=== PATIENT | female | born 1955 | race Caucasian/White ===

== ENCOUNTER 2023-10-05 13:22 | Emergency (ER) | payer MEDICARE, MEDICAID, SELFPAY ==
[2023-10-05 13:40] VITALS: BP 134/68; PULSE 92; RESP 16; TEMP 36.1; O2SAT 96
--- NOTE | 2023-10-05 13:40 | ED.EAR ---
HPI - Ear Problem General Chief complaint: Ear Stated complaint: Ears Time Seen by Provider: 10/05/23 13:40 Source: patient, RN notes reviewed and old records reviewed Mode of arrival: ambulatory Limitations: no limitations History of Present Illness HPI Narrative: 68-year-old female to [facility] for complaint of bilateral ear discomfort for Approximately 8 weeks. Patient reports attempting to use Debrox and warm water in her ears with little relief. Patient describes discomfort in right ear as popping and states that left ear drains while she sleeps. Patient denies dizziness, headache, sore throat, cough, chest pain, shortness of breath, difficulty swallowing, allergies, pertinent medical history. Patient able to tolerate fluids by mouth. Respirations even and nonlabored. Patient in no acute distress. Related Data Home Medications Medication Instructions Recorded Confirmed acetaminophen 300 mg-codeine 30 mg 1 tablet PO BID 10/05/23 10/05/23 tablet atorvastatin 40 mg tablet 40 mg PO DAILY 10/05/23 10/05/23 buspirone 5 mg tablet 5 mg PO DAILY 10/05/23 10/05/23 cetirizine 10 mg tablet 10 mg PO DAILY 10/05/23 10/05/23 clopidogrel 75 mg tablet 75 mg PO DAILY 10/05/23 10/05/23 empagliflozin 10 mg tablet 10 mg PO DAILY 10/05/23 10/05/23 (Jardiance) furosemide 80 mg tablet 80 mg PO DAILY 10/05/23 10/05/23 nystatin 100,000 unit/gram topical 1 applic topical BID 10/05/23 10/05/23 powder nystatin-triamcinolone 100,000 1 applic topical BID 10/05/23 10/05/23 unit/g-0.1 % topical cream omeprazole 20 mg capsule,delayed 20 mg PO DAILY 10/05/23 10/05/23 release potassium chloride 20 mEq 40 meq PO BID 10/05/23 10/05/23 tablet,extended release(part/cryst) sacubitril 49 mg-valsartan 51 mg 1 tablet PO BID 10/05/23 10/05/23 tablet (Entresto) Allergies Allergy/AdvReac Type Severity Reaction Status Date / Time No Known Allergies Allergy Verified 10/05/23 13:27 Review of Systems Review of Systems: All systems reviewed & are unremarkable except as noted in HPI and below Constitutional: Constitutional: Reports no additional constitutional complaints Eyes: Eyes: Reports no additional eye complaints ENT: Reports as per HPI and Reports otalgia ( Bilateral) Cardiovascular: Cardiovascular: Reports no additional cardiovascular complaints, Denies chest pain and Denies dyspnea Respiratory: Respiratory: Reports no additional respiratory complaints, Denies cough and Denies dyspnea Musculoskeletal: Musculoskeletal: Reports no additional musculoskeletal complaints Neurologic: Reports system reviewed and no additional complaints, except as documented Psychiatric: Psychiatric: Reports no additional psychiatric complaints PMFSH Comments At the time of my signature, I reviewed and agree with the nursing past medical, surgical, social, and family history. There is no relevant family history pertinent to the patient complaint. Exam Const: General: cooperative, healthy appearing, comfortable, no acute distress, alert and well nourished Nutritional Appearance: well nourished Orientation/consciousness: patient oriented x3 Limitations: no limitations HENMT: Head: normal to inspection Ears: external ears normal, Abnormal EAC present cerumen impaction on the right, excessive cerumen on the left and foreign body on the right ( thick, purulent drainage); no otic discharge and unable to visualize TM on the right Face/Nose/Sinus: Normal external nose present, Normal nares present, normal facial exam, No erythema and No edema Face and sinus: normal facial exam, no erythema and no edema Mouth: Yes Normal oral and palatal mucosa present Eyes: General: appearance normal, both eyes and all related structures Neck: Neck: normal visual inspection, full ROM and no meningeal signs Lymphatic: no lymphadenopathy noted and no lymphedema noted Chest: Chest palpation & inspection: normal inspection of the chest Resp: Effort & Inspectio
[2023-10-05 13:53] VITALS: BP 134/68; PULSE 92; RESP 16; TEMP 36.1; O2SAT 96
== END 2023-10-05 14:37 | disposition home or self-care (01) ==
PROVIDERS: Emergency Provider Nurse Practitioner Family; PCP Family Medicine
DX: H60.91 Unspecified otitis externa, right ear (principal); H61.23 Impacted cerumen, bilateral; T16.1XXA Foreign body in right ear, initial encounter; W44.8XXA Other foreign body entering into or through a natural orifice, initial encounter; I11.0 Hypertensive heart disease with heart failure; I50.9 Heart failure, unspecified; J44.9 Chronic obstructive pulmonary disease, unspecified
CPT/HCPCS: 69210; 69200; 99203; G0463

== ENCOUNTER 2024-04-15 14:40 | Emergency (ER) | payer MEDICARE, MEDICAID, SELFPAY ==
--- NOTE | 2024-04-15 14:56 | ED_ITS ---
HPI - Ear Problem General Chief complaint: Ear Stated complaint: POSS EAR INFECTION BOTH EARS Time Seen by Provider: 04/15/24 15:26 Source: patient and RN notes reviewed Mode of arrival: ambulatory Limitations: no limitations History of Present Illness HPI Narrative: 68-year-old female presents with concern for cracking of the right ear, fullness in both ears. Reports it feels like her ears are draining at night. She denies fever or cold symptoms. MD Complaint: ear pain Related Data Home Medications ?Medication ?Instructions ?Recorded ?Confirmed ?Last Taken ?Type acetaminophen 300 mg-codeine 30 mg 1 tablet PO BID 10/05/23 10/05/23 Unknown History tablet atorvastatin 40 mg tablet 40 mg PO DAILY 10/05/23 10/05/23 Unknown History buspirone 5 mg tablet 5 mg PO DAILY 10/05/23 10/05/23 Unknown History cetirizine 10 mg tablet 10 mg PO DAILY 10/05/23 10/05/23 Unknown History clopidogrel 75 mg tablet 75 mg PO DAILY 10/05/23 10/05/23 Unknown History empagliflozin 10 mg tablet 10 mg PO DAILY 10/05/23 10/05/23 Unknown History (Jardiance) furosemide 80 mg tablet 80 mg PO DAILY 10/05/23 10/05/23 Unknown History nystatin 100,000 unit/gram topical 1 applic topical BID 10/05/23 10/05/23 Unknown History powder nystatin-triamcinolone 100,000 1 applic topical BID 10/05/23 10/05/23 Unknown History unit/g-0.1 % topical cream omeprazole 20 mg capsule,delayed 20 mg PO DAILY 10/05/23 10/05/23 Unknown History release sacubitril 49 mg-valsartan 51 mg 1 tablet PO BID 10/05/23 10/05/23 Unknown History tablet (Entresto) albuterol sulfate 90 mcg/actuation inhalation 04/15/24 Unknown History aerosol inhaler (Ventolin HFA) fluoxetine 20 mg capsule mg 04/15/24 Unknown History gabapentin 100 mg capsule mg 04/15/24 Unknown History oxybutynin chloride 5 mg tablet mg 04/15/24 Unknown History sertraline 25 mg tablet mg 04/15/24 Unknown History trazodone 50 mg tablet mg 04/15/24 Unknown History Allergies Allergy/AdvReac Type Severity Reaction Status Date / Time No Known Allergies Allergy Verified 04/15/24 15:12 Review of Systems Review of Systems: CONSTITUTIONAL: Denies malaise, chills, sweats, or fever. EYES: Denies visual changes, redness, or discharge. ENT: Denies rhinorrhea, congestion, sinus pain, and sore throat. Reports bilateral ear fullness, popping of the right ear for 2 week CARDIOVASCULAR: Denies chest pain, palpitations, or edema. RESPIRATORY: Denies cough. Denies dyspnea. GASTROINTESTINAL: Denies abdominal pain, nausea, vomiting, diarrhea SKIN: Denies rash or itching. MUSCULOSKELETAL: Denies myalgia. NEUROLOGIC: Denies headache. All systems reviewed & are unremarkable except as noted in HPI and below PMFSH Comments At time of signature, agree with nursing past medical, surgical, social and family history. There is no relevant family history pertinent to the presenting complaint Exam Narrative: GENERAL: Well-appearing, well-nourished, and in no acute distress. HEAD: Normocephalic EYES: PERRLA, conjunctivae clear ENT: Nares clear, turbinates edematous, clear discharge. Mucous membranes moist. TM pearly patel with dull light reflex bilaterally; no tragal tenderness. Oropharynx not erythematous without lesions. Tonsils not enlarged and without exudate, no drooling, no hoarseness, no trismus, uvula midline. NECK: Supple. No lymphadenopathy CHEST: Clear to auscultation, breath sounds equal. No wheezing, rhonchi, rales, or stridor. No respiratory distress, speaks in full sentences. HEART: Regular rate and rhythm. No murmur heard. SKIN: Warm, dry, no rash. NEURO: Alert and oriented x3. PSYCH: Normal mood and affect Course Course Emergency Course: Patient is aware of diagnosis, understands and agrees to treatment plan. Anticipatory guidance given. Patient agrees to follow-up as directed and is aware of reasons to seek care at the emergency department. Portions of this record may have been created with voice recognition software Level of Care: [facility] Visit Vital Signs Vital signs: Reviewed. Medical Decision Making MDM Narrative Medical decision making narrative: I evaluated this in the [facility]. History is obtained from patient who is an independent historian and physical exam was performed.? Available medical records were reviewed. ? Exam findings and relevant testing show no acute concerns or changes; patient is non-toxic appearing and is in no distress. Differential diagnosis considered: Betancur virus, strep pharyngitis, allergic rhinitis, upper respiratory tract infection, sinusitis, rhinosinusitis, nasopharyngitis. viral pharyngitis, otitis media, otitis externa, otitis effusion, cerumen impaction, foreign body. Exam findings show no acute concerns or changes; patient is non-toxic appearing and is in no distress. Patient is appropriate for outpatient treatment and follow-up. ? Differential diagnosis and treatment plan were discussed with the patient. Patient agrees with discussion and after shared medical decision making agrees with plan of care. All questions were answered to the patient's satisfaction. Patient is appropriate for outpatient treatment and follow-up. Critical Care Time Critical Care Time Critical Care Time: No Discharge Plan Discharge Clinical Impression: Fluid collection of middle ear Patient Disposition: Home, Self-Care Condition: Stable Instructions: Fluid In The Ear (Serous Otitis Media) (ED) Additional Instructions: Recommend antihistamine such as Benadryl at night time and Zyrtec or Maia during the day until symptoms improve Afrin nasal spray for no more than 2 days in a row Flonase nasal spray, 2 sprays in each nostril once daily until symptoms improve Also, recommend symptomatic treatment includes: rest, fluids, and increase humidity of the air at home. Recommend Acetaminophen as directed on the bottle to reduce fever, pain Please schedule a follow-up visit with your personal physician for further evaluation and treatment within 3-5days. If your symptoms persist, change or worsen significantly before you can contact your personal physician then please, without delay, go to the emergency department for further evaluation. Patient Language: [place] Prescriptions: New fluticasone propionate [Flonase Allergy Relief] 50 mcg/actuation spray,suspension 2 spray NASAL DAILY 14 Days Qty: 15.8 0RF Rx Instructions: administer into each nostril oxymetazoline [Afrin (oxymetazoline)] 0.05 % spray,non-aerosol 2 spray intranasal Q12H PRN (Reason: nasal congestion) 2 Days Qty: 15 0RF No Action buspirone 5 mg tablet 5 mg PO DAILY furosemide 80 mg tablet 80 mg PO DAILY Jardiance 10 mg tablet 10 mg PO DAILY Entresto 49-51 mg tablet 1 tablet PO BID acetaminophen-codeine 300-30 mg tablet 1 tablet PO BID nystatin-triamcinolone 100,000-0.1 unit/g-% cream 1 applic TOPICAL BID nystatin 100,000 unit/gram powder 1 applic TOPICAL BID atorvastatin 40 mg tablet 40 mg PO DAILY cetirizine 10 mg tablet 10 mg PO DAILY omeprazole 20 mg capsule,delayed release(DR/EC) 20 mg PO DAILY clopidogrel 75 mg tablet 75 mg PO DAILY trazodone 50 mg tablet sertraline 25 mg tablet gabapentin 100 mg capsule albuterol sulfate [Ventolin HFA] 90 mcg/actuation HFA aerosol inhaler INHALATION oxybutynin chloride 5 mg tablet fluoxetine 20 mg capsule Follow-up/Referrals: Abran,Lev Art MD [Primary Care Provider] - Time of Disposition: 15:37
[2024-04-15 15:05] VITALS: BP 109/57; PULSE 81; RESP 20; TEMP 37.2; O2SAT 96
--- OUTSIDE RECORDS SUMMARY | 2024-04-15 17:19 | XMS_ITS | Clinical Summary ---
Author Organization [facility] Address [address] [address] Phone Care Team Providers Care Coremaker Pipe Name Role Phone Lev Osullivan MD Primary Care Provider [phone] Allergies Active Allergy Reactions Criticality Noted Date Comments Semaglutide Diarrhea 12/19/2022 Medications traZODone (DESYREL) 50 MG Tablet Take 1 Tablet by mouth nightly. Active aspirin EC 81 MG Tablet Delayed Response Take 1 Tablet by mouth daily. Active atorvastatin (LIPITOR) 40 MG Tablet Take 1 Tablet by mouth daily. Active albuterol (PROVENTIL/TIFFANY ABRAHAM) 1.25 MG/3ML Nebulizer Soln take 2 Puffs by inhalation every 4 hours as needed for Shortness of Breath or Wheezing. Active oxybutynin (DITROPAN) 5 MG Tablet Take 1 Tablet by mouth every evening. 1 Active sacubitril-valsa rtan (ENTRESTO) 49-51 MG Tablet Take 1 Tablet by mouth 2 times daily. Active acetaminophen-co deine (TYLENOL #3) 300-30 MG Tablet Take 1 Tablet by mouth 2 times daily as needed for Moderate or more severe pain or Severe pain. Active Empagliflozin (Jardiance) 10 MG Tablet Take 1 Tablet by mouth daily. Active benzonatate (TESSALON) 100 MG Capsule Take 1 Capsule by mouth 3 times daily as needed for Cough. Active Omeprazole 20 MG Tablet Delayed Release Dispersible Take 1 Capsule by mouth daily. Active cetirizine (ZyrTEC) 10 MG Tablet Take 1 Tablet by mouth daily. Active FLUoxetine (PROzac) 20 MG Capsule Take 1 Capsule by mouth daily. Active gabapentin (NEURONTIN) 100 MG Capsule Take 1 Capsule by mouth 2 times daily. Active Potassium Chloride ER (KLORCON) 20 MEQ Tablet Controlled Release Take 2 Tablets by mouth 2 times daily. Take 2 tablets by mouth twice daily with furosemide Active busPIRone (BUSPAR) 5 MG Tablet Take 1 Tablet by mouth 2 times daily. Active furosemide (LASIX) 80 MG Tablet Take 1 Tablet by mouth daily. Active Ergocalciferol (VITAMIN D2 PO) Take 1 Capsule by mouth once a week. Take 1 capsule (1.25 mg) weekly. Active fluticasone-salm eterol (ADVAIR) 250-50 MCG/ACT AEROSOL POWDER, BREATH ACTIVATED take 1 Puff by inhalation 2 times daily. Active miconazole (Miconazole Antifungal) 2 % Cream Apply 2 times daily. Application Site: affected area (Description and Location) 56 g 3 Active Menthol-Zinc Oxide (Moisture Barrier) 0.44-20.6 % Ointment Application Site: affected areas twice daily (Description and Location) 113 g 3 Active Active Problems Problem Noted Date Diagnosed Date Hyperlipidemia 03/30/2023 Exertional dyspnea 03/30/2023 Depression 03/30/2023 Arthritis 03/30/2023 Pulmonary HTN 09/30/2019 Contracture of joint of right foot 04/26/2017 Pain of right foot 04/26/2017 Morbid obesity due to excess calories 08/18/2015 Cellulitis 02/02/2015 COPD (chronic obstructive pulmonary disease) Hypertension 02/02/2015 ETOH abuse 02/02/2015 Tobacco abuse disorder 02/02/2015 Sleep apnea 02/02/2015 Other peripheral vascular disease(443.89) 2014 Skin ulcer of toe of right foot with fat layer e xposed 02/02/2015 Resolved Problems Problem Noted Date Diagnosed Date Resolved Date CHF exacerbation 03/30/2023 04/01/2023 Cellulitis and abscess of toe 02/16/2015 04/01/2023 Encounters Date Type Department Care Team Description 03/04/2024 Transcribe Orders [facility] Cardiac It Technical Specialist [address] [place] [id number] Lev Osullivan MD Oth abn and inconclusive findings on dx imaging of breast (Primary Dx) from Last 3 Months Immunizations Immunization Administration Dates Next Due Covid-19 Vaccine, Vector-nr, Rs-ad26, Pf, 0.5 Ml (NACHO/J&J) 05/27/2020 Influenza Vaccine greater than 3 yrs 11/20/2015 Influenza Vaccine, Quadrivalent, PF 02/02/2015 Family History Medical History Relation Name Comments Chronic Obstructive Pulmonary Disease Father Hypertension Father Stroke Father Cancer Mother brain and then spine Hypertension Mother Relation Name Status Comments Father Mother Social History Tobacco Use Types Packs/Day Years Used Date Smoking Tobacco: Former Cigarettes 0.5 25 0 09/04/1994 - 09/05/2019 Smokeless Tobacco: Never Tobacco Cessation:Counseling Given: No Alcohol Use Standard Drinks/Week Comments Never 0 (1 standard drink = 0.6 oz pur e alcohol) a fifth every other day [facility] Utilities Answer Date Recorded In the past 12 months has [employer], gas, oil, or water [employer] threatened to shut off services in your home? No 03/30/2023 Social Connection and Isolation Panel [NHANES] A nswer Date Recorded In a typical week, how many times do you talk on the phone with family, friends, or neighbors? Three times a week 03/30/19 24 How often do you get togethe r with friends or relatives? Three times a week 03/30/2023 How often do you attend [facility] or synagogue services? 1 to 4 times per year 03/30/2023 Do you belong to any clubs o r organizations such as confucianism groups, unions, fraternal or athletic groups, or school groups? No 03/30/2023 How often do you attend meet ings of the clubs or organizations you belong to? 1 to 4 times per year 03/30/2023 Are you , , di vorced, , never , or living with a partner? Living with partner 03/30/2023 AUDIT-C Answer Date Recorded Q1: How often do you have a drink containing alcohol? Never 03/30/2023 Q2: How many drinks containi ng alcohol do you have on a typical day when you are drinking? Patient does not drink Q3: How often do you have si x or more drinks on one occasion? Never 03/30/2023 Overall Financial Resource Strain (CARDIA) Answe r Date Recorded How hard is it for you to pa y for the very basics like food, housing, medical care, and heating? Not very hard 03/30/2023 [facility] - Occupational Stress Questionnaire Answer Date Recorded Do you feel stress - tense, restless, nervous, or anxious, or unable to sleep at night because your mind is troubled all the time - these days? Not at all 03/30/2023 Exercise Vital Sign Answer Date Recorde d On average, how many days pe r week do you engage in moderate to strenuous exercise (like a brisk walk)? 0 days 03/30/2023 On average, how many minutes do you engage in exercise at this level? 0 min 03/30/2023 Hunger Vital Sign Answer Date Recorded Within the past 12 months, y ou worried that your food would run out before you got the money to buy more. Never true 03/30/19 24 Within the past 12 months, t he food you bought just didn't last and you didn't have money to get more. Never true 03/30/2023 PRAPARE - Transportation Answer Date Re corded In the past 12 months, has l ack of transportation kept you from medical appointments or from getting medications? No 09/2023 In the past 12 months, has l ack of transportation kept you from meetings, work, or from getting things needed for daily living? No 03/30/2023 Housing Stability Vital Sign Answer Aj e Recorded In the last 12 months, was t here a time when you were not able to pay the mortgage or rent on time? No 03/30/2023 In the last 12 months, how many places have you lived? 1 03/30/2023 In the last 12 months, was t here a time when you did not have a steady place to sleep or slept in a fdc (including now)? No 03/30/2023 Sexually Active Control Partners Comments Never rarely- using n o protections Comments No Sex and Gender Information Value Date Recorded Sex Assigned at Not on file Legal Sex Female 8:37 PM CDT Gender Identity Not on file Sexual Orientation Not on file Last Filed Vital Signs Vital Sign Reading Time Taken Comments Blood Pressure 94/48 04/01/2023 7:31 AM BOTTOM BLEACHER Pulse 82 04/01/2023 7:31 AM BOTTOM BLEACHER Temperature 36.5 C (97.7 F) 04/01/2023 7:31 AM BOTTOM BLEACHER Respiratory Rate 18 04/01/2023 7:33 AM BOTTOM BLEACHER Oxygen Saturation 94% 04/01/2023 7:33 AM BOTTOM BLEACHER Inhaled Oxygen Concentration - - Weight 163.3 kg (360 lb) 04/27/2023 3:22 PM BOTTOM BLEACHER Height 157.5 cm (5' 2 ) 04/27/2023 3:22 PM BOTTOM BLEACHER Body Mass Index 65.84 04/27/2023 3:22 PM BOTTOM BLEACHER Plan of Treatment Upcoming Encounters Date Type Department Care Team (Late st Contact Info) Description 04/16/2024 1:15 PM BOTTOM BLEACHER [facility] 1 [facility] [place] [address] Lev Osullivan MD [address] [facility] [place] [address] 04/16/2024 1:45 PM BOTTOM BLEACHER [facility]ment [facility] 1 [facility] [place] [address] Lev Osullivan MD [address] [place] [address] [place] [address] Health Maintenance Due Date Last Done Comments DEXA Bone Density 1955 Hepatitis C Virus (HCV) Screening 1955 TdaP Immunization 1955 Colonoscopy 1998 Colorectal Cancer Screening 1998 Cologuard 08/24/2003 Immunochemical Fecal Occult Blood 08/24/2003 Respiratory Syncytial Virus (RSV) Immunization (Adult) (1 - Risk 60-74 years 1-dose series) 2013 SARS-COV-2 Immunization ( season) 2023 05/27/2020 Mammogram 10/09/2024 10/10/2023, 06/0 02/2020, 07/21/2020, Additional history exists Pneumococcal Immunization (50+ years) Completed 01/04/2021, 11/28/2018, 11/28/2018, Additional history exists Pneumococcal Immunization Combined Discontinued 01/04/2021, 11/28/2018, 11/28/2018, Additional history exists Zoster Immunization Completed 12/14/2021, 2 Influenza Immunization Completed , 02/21/2023, 01/04/2021, Additional history exists Hepatitis B Immunization Aged Out No longer eligible based on patient's age to complete this topic Meningococcal Immunization (ACWY) Aged Out No longer eligible based on patient's age to complete this topic Rotavirus Immunization Aged Out No lo nger eligible based on patient's age to complete this topic Medical Devices Implanted Type Area Picker / Packer Device Identifier Shelf Expiration Date Model / Serial / Lot Pkg Assy [id number] Smart Davi 80cm - [id number] Implanted:Qty: 1 on 04/17/2015 by Ron Moore MD at [facility] IMPLANT Right: Iliac JNJ / CORD 11/19/2016 [id number] / / [id number] Stent Biliary Transhepatic Self-Expandin - [id number] Implanted:Qty: 1 on 04/17/2015 by Ron Moore MD at [facility] IMPLANT Left: Iliac JNJ / CORD 07/20/2016 [id number] / / [id number] Angioseal Vip 6fr - [id number] Implanted:Qty: 1 on 04/17/2015 by Ron Moore MD at [facility] IMPLANT Right: Groin ST ANITA / ATRIAL FIB 09/20/2015 [id number] / / [id number] Angioseal Vip 6fr - [id number] Implanted:Qty: 1 on 04/17/2015 [facility] IMPLANT Left: Groin ST ANITA / ATRIAL FIB 09/20/2015 [id number] / / [id number] Angioseal Vip 6fr - [id number] Implanted:Qty: 1 on 06/03/2015 by Ron Moore MD at [facility] IMPLANT Left: Groin ST ANITA / ATRIAL FIB 09/20/2015 [id number] / / [id number] Smart Control Implanted:Qty: 1 on 06/03/2015 by Ron Moore MD at [facility] Right: Leg CORDIS 11/19/2016 [id number] / NA / [id number] Procedures Procedure Name Priority Date/Time Associated Diagnosis Comments ALETHA DIAG BILATERAL DIGITAL W CAD Routine 10/10/2023 11:30 AM CDT Abnormal mammogram from Last 3 Months or Most Recently Relevant to Health Maintenance Results * ALETHA DIAG BILATERAL DIGITAL W CAD (10/10/2023 11:30 AM CDT) Anatomical Region Laterality Modality breast Bilateral Mammography 10/10/2023 9:50 AM CDT Narrative 10/10/2023 3:38 PM CDT - ALETHA DIAG BILATERAL DIGITAL W CAD - ALETHA US BREAST LIMITED DAVI BILATERAL DIGITAL DIAGNOSTIC MAMMOGRAM WITH CAD WITH MEDIOLATERAL OBLIQUE CRANIOCAUDAL AND BILATERAL ULTRASOUND: 10/10/2023 The study was acquired using digital technology and interpreted from soft copy. Current study was also evaluated with ICAD version 7.2. CLINICAL: Diagnostic study. Left purple breast sore on lateral breast for 6 months. Technologist notes far lateral right breast discoloration with a dimple in the center; not able to be visualized on mammogram due to patient ability and wheelchair. 2D exam due to COPD; difficulty suspending respirations. Exam performed in a motorized wheelchair. She has reduced range of motion. Unable to obtain ACR quality images due to patient condition. No personal history of cancer. No family history of breast cancer. COMPARISONS: Comparison is made to exams dated: 07/21/2020, 09/17/2018, and 03/17/2014 [facility]. BREAST TISSUE:There are scattered fibroglandular densities in both breasts. FINDINGS: BILATERAL DIAGNOSTIC MAMMOGRAM: The examination is limited secondary to the patient's limited ability to cooperate for positioning. All images are suboptimal. There is a cluster of microcalcifications at the 9 o'clock position of the right breast, middle depth. These were evaluated with magnification views and demonstrate a probably benign appearance. No other significant masses or calcifications are seen in either breast on the mammogram. Further evaluation was obtained with sonography. TARGETED RIGHT BREAST ULTRASOUND: No lesions are seen underlying the areas of concern at the area of discoloration at the 9 o'clock position of the right breast or at the skin sore at the 4 o'clock position of the left breast, 6 cm from the nipple. IMPRESSION: OVERALL STUDY BIRADS: 3 PROBABLY BENIGN There are probably benign calcifications at the 9 o'clock position of the right breast, middle depth. A follow-up mammogram in 6 months is recommended to demonstrate stability. No lesions are seen underlying the areas of concern in either breast. Clinical management is recommended. The results and recommendations were discussed with the patient. Electronically signed by: Kalee Pineda M.D. ll/:10/10/2023 12:28:35 [employer]otive [employer] Specialist(s): RT Marisela(R)(M), [facility]; Cassie Padilla, [facility] letter sent: Birad 3 Followup Reading location: [facility] OVERALL STUDY BIRADS: 3 Probably benign Procedure Note Kalee Pineda MD - 10/10/2023 - ALETHA DIAG BILATERAL DIGITAL W CAD - ALETHA US BREAST LIMITED DAVI BILATERAL DIGITAL DIAGNOSTIC MAMMOGRAM WITH CAD WITH MEDIOLATERAL OBLIQUE CRANIOCAUDAL AND BILATERAL ULTRASOUND: 10/10/2023 The study was acquired using digital technology and interpreted from soft copy. Current study was also evaluated with ICAD version 7.2. CLINICAL: Diagnostic study. Left purple breast sore on lateral breast for 6 months. Technologist notes far lateral right breast discoloration with a dimple in the center; not able to be visualized on mammogram due to patient ability and wheelchair. 2D exam due to COPD; difficulty suspending respirations. Exam performed in a motorized wheelchair. She has reduced range of motion. Unable to obtain ACR quality images due to patient condition. No personal history of cancer. No family history of breast cancer. COMPARISONS: Comparison is made to exams dated: 07/21/2020, 09/17/2018, and 03/17/2014 [facility]. BREAST TISSUE:There are scattered fibroglandular densities in both breasts. FINDINGS: BILATERAL DIAGNOSTIC MAMMOGRAM: The examination is limited secondary to the patient's limited ability to cooperate for positioning. All images are suboptimal. There is a cluster of microcalcifications at the 9 o'clock position of the right breast, middle depth. These were evaluated with magnification views and demonstrate a probably benign appearance. No other significant masses or calcifications are seen in either breast on the mammogram. Further evaluation was obtained with sonography. TARGETED RIGHT BREAST ULTRASOUND: No lesions are seen underlying the areas of concern at the area of discoloration at the 9 o'clock position of the right breast or at the skin sore at the 4 o'clock position of the left breast, 6 cm from the nipple. IMPRESSION: OVERALL STUDY BIRADS: 3 PROBABLY BENIGN There are probably benign calcifications at the 9 o'clock position of the right breast, middle depth. A follow-up mammogram in 6 months is recommended to demonstrate stability. No lesions are seen underlying the areas of concern in either breast. Clinical management is recommended. The results and recommendations were discussed with the patient. Electronically signed by: Kalee Pineda M.D. 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 PRE-ARREST: Use entire range of life support measures to stabilize the patient. * Full Code Date Activated Date Inactivated Comments 12/29/2022 9:33 AM 01/30/2023 1:57 PM * Full Code Date Activated Date Inactivated Comments 06/16/2020 1:40 PM 10/13/2022 8:29 AM Care Teams Coremaker Pipe Relationship Specialty Start Date End Date Lev Osullivan MD [address] [facility] [address] [address] [place] [address] PCP - General Family Medicine 07/12/19
--- OUTSIDE RECORDS SUMMARY | 2024-04-15 17:20 | XMS_ITS | Clinical Summary ---
Author Organization [facility] Address [address] [place] [address] Care Team Providers Care Filament Cutter Name Role Phone Satish Ninfa IVERSON Unavailable [phone] Lev Osullivan MD Primary Care Provider [phone] Elizabeth Santos MD Unavailable Allergies No known active allergies Medications aspirin 81 mg chewable tablet Take 1 tablet (81 mg total) by mouth daily Active albuterol 2.5 mg /3 mL (0.083 %) nebulizer solution Take 2.5 mg by nebulization every 6 (six) hours as needed for wheezing Active meloxicam (MOBIC) 7.5 mg tablet Take 7.5 mg by mouth 2 (two) times a day Active oxybutynin XL (DITROPAN-XL) 5 mg 24 hr tablet Take 1 tablet (5 mg total) by mouth daily with dinner Active hydrOXYzine (ATARAX) 25 mg tablet Take 25 mg by mouth 3 (three) times a day Active FLUoxetine (FLUoxetine) 10 mg tablet/capsule Take 1 tablet/capsule (10 mg total) by mouth daily Active amLODIPine (NORVASC) 10 mg tablet Take 10 mg by mouth daily Active pravastatin (PRAVACHOL) 40 mg tablet Take 40 mg by mouth nightly Active fluticasone propion-salmete roL (ADVAIR DISKUS) 250-50 mcg/dose diskus inhaler Inhale 1 puff 2 (two) times a day Rinse mouth with water after use. Do not swallow. Active famotidine (PEPCID) 20 mg tablet Take 20 mg by mouth 2 (two) times a day Active traZODone (DESYREL) 50 mg tablet Take 1 tablet (50 mg total) by mouth nightly Active clopidogreL (PLAVIX) 75 mg tablet Take 75 mg by mouth daily Active furosemide (LASIX) 80 mg tablet Take 1 tablet (80 mg total) by mouth 2 (two) times a day 60 tablet 1 1 Active acetaZOLAMIDE (DIAMOX) 250 mg tablet Take 1 tablet (250 mg total) by mouth daily 30 tablet 1 Active fluticasone propionate (FLONASE) 50 mcg/actuation nasal spray Administer 2 sprays into each nostril daily 1 Inhaler 1 Active nystatin-triamc inolone creamIndication s:cutaneous candidiasis Apply topically 2 (two) times a day 240 g 2 4 Active triamcinolone (KENALOG) 0.1 % cream Apply topically daily Apply to affected area with nystatin for one week, BID 28.4 g 1 4 Active Active Problems Problem Noted Date Diagnosed Date Gastroesophageal reflux disease 09/21/2020 COPD (chronic obstructive pulmonary disease) 03/2020 Assessment & Plan (09/21/2020 5:16 PM CDT): Nonproductive cough and lack of wheezing inconsistent with acute COPD exacerbation. Stop steroids and antibiotics. Continue home COPD regimen, Duonebs available p.r.n. Acute diastolic heart failure ([facility]) 09/22/19 21 Assessment & Plan (09/21/2020 5:17 PM CDT): Symptoms consistent with acute heart failure with progressive shortness of breath worsened with exertion, orthopnea, and nonproductive cough. Chest x-ray consistent with pulmonary edema, imaging personally reviewed. TTE from 02/04/2015 showed at concentric LVH and mild diastolic function. Symptoms somewhat improved after administration of IV Lasix in the ED, will continue diuresis with IV Lasix. Strict I&Os. Echocardiogram ordered. Cardiology consulted. Obstructive sleep apnea 09/21/2020 Assessment & Plan (09/21/2020 5:18 PM CDT): Home CPAP unit has been broken since she recently returned home from rehab. Will provide hospital CPAP unit while inpatient. She has been trying to reschedule a new sleep study so that she can have a new unit covered by insurance, but has been having difficulty because of COVID-19. Depression 09/21/2020 Arteriosclerosis of coronary artery 01/10/2019 Morbid obesity due to excess calories 08/18/2015 Assessment & Plan (09/21/2020 5:26 PM CDT): Has been trying to get an appointment with Dr. Mcneal for gastric sleeve, encouraged continued attempts at weight loss. Acute respiratory failure with hypoxia (CMS/HCC) Resolved Problems Problem Noted Date Diagnosed Date Resolved Date ETOH abuse 02/02/2015 09/26/2020 Assessment & Plan (09/21/2020 5:19 PM CDT): Patient reports she stopped drinking after her most recent discharge from SNF. Surgical History Surgery Date Site/Laterality Comments PERIPHERAL ARTERIAL STENT GRAFT Medical History Medical History Date Comments COPD (chronic obstructive pulmonary disease) (HC C) Arthritis Hypertension High cholesterol Cardiovascular disease Peripheral arterial disease with history of brendan scularization (HCC) Obstructive sleep apnea Morbid obesity (HCC) GERD (gastroesophageal reflux disease) Alcohol abuse Depression Family History Medical History Relation Name Comments COPD Father Hypertension Father Stroke Father Brain cancer Mother Hypertension Mother Relation Name Status Comments Father Mother Social History Tobacco Use Types Packs/Day Years Used Date Smoking Tobacco: Former Cigarettes Alcohol Use Standard Drinks/Week Comments Yes 0 (1 standard drink = 0.6 oz pur e alcohol) PHQ-2 Answer Date Recorded PHQ-2 Total Score (If total score is 3 or more points, staff should administer the PHQ-9) 2 11/03/2023 Comments No Sex and Gender Information Value Date Recorded Sex Assigned at Not on file Legal Sex Female 3:17 AM [employer] Gender Identity Not on file Sexual Orientation Not on file Obstetrics History Last Filed Vital Signs Vital Sign Reading Time Taken Comments Blood Pressure 118/70 12/06/2023 3:17 PM CDT Pulse 84 12/06/2023 3:17 PM CDT Temperature 36.8 C (98.3 F) 12/06/2023 2:40 PM CDT Respiratory Rate 18 12/06/2023 3:17 PM CDT Oxygen Saturation 93% 12/06/2023 3:17 PM CDT Inhaled Oxygen Concentration - - Weight 157.9 kg (348 lb 1.7 oz) 021 12:57 PM [employer] Height 157.5 cm (5' 2.01 ) 01/27/2021 1 2:57 PM [employer] Body Mass Index 63.65 01/27/2021 12:57 PM [employer] Plan of Treatment Health Maintenance Due Date Last Done Comments Colon Cancer Screening-Colonoscopy 1955 Hepatitis C Screening 1955 Osteoporosis Screening-Bone Density Scan 1955 DTaP/Tdap/Td Vaccine (1 - Tdap) 1964 Hepatitis B Screening 08/24/1971 Zoster Vaccine (1 of 2) 08/24/2003 Well Visit 65+ 2018 Breast Cancer Screening-Mammogram 07/23/2021 07/23/2020, 07/21/2020, 07/21/2020, Additional history exists Fall Risk Assessment 09/28/2021 09/28/2020 Covid-19 Vaccine (2 - 2023-2 5 season) 2023 05/27/2020 Influenza Vaccine (#1) 2023 , 11/28/2018, 11/20/2018, Additional history exists Depression Screening 11/02/2024 11/03/2023, 11/03/2023, 10/26/2023 Pneumococcal vaccine 65+ Completed 021, 11/28/2018, 11/28/2018, Additional history exists Insurance [employer] HMO IDPA IDPA MEDICARE IDPA MEDICARE Advance Directives For more information, please contact: [phone] * Full Code (Latest Code Status on File) Date Activated Date Inactivated Comments 09/21/2020 1:32 PM 09/28/2020 3:44 PM Care Teams Filament Cutter Relationship Specialty Start Date End Date Lev Osullivan MD [address] [place] [address] PCP - General 07/21/20 Ninfa Covarrubias PA [address] [place] [address] Physician Button Inspector Internal Medicine 07/21/17 Elizabeth Santos MD [address] [place] [address] Consulting Physician Sleep Medicine 09/23/20
--- OUTSIDE RECORDS SUMMARY | 2024-04-15 17:20 | XMS_ITS | Data Portability ---
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 She would still like to pursue a bariatric surgery if possible. [email or web address] Not available 04/26/2023 12:59:22 07/26/2023 07/26/2023 Pt is stable. She is discouraged by her overall health condition and is questioning how long she will live. Pt has her own personal electric bed. Due to her condition of CHF, she would benefit from a trepezius bar to help her to reposition herself while in bed so that her head remains more elevated, making it easier to breathe while in bed. [email or web address] Not available 08/01/2023 14:22:59 09/07/2023 09/07/2023 Pt is stable and in a good mood today. Not available 09/11/2023 14:50:28 01/02/2024 01/02/2024 Her daughter Melody Quezada, aged 53, is suffering with CA. [email or web address] Not available 01/05/2024 12:39:10 Plan of Treatment Reminders Order Date Submit Date Provider Last Modified By Organization Details Last Modified Time Details Appointments ANY 15 2024 01:30P M Lev Hernández MD Not available Not available Not available Lab HbA1c (hemoglo bin A1c), blood 2023 024 [email or web address] In-Office Order, Internal Use Only DO Not Attach Compendium DO Not Attach Compendium, Do Not Delete/merge, [id number] 01/02/2024 15:40:25 CBC w/ auto diff 2023 024 JOSE ALEJANDRO [facility], [address], [place], [address], 01/03/2024 09:16:04 BNP (B-type natriure tic peptide) , serum or plasma 2023 024 JOSE ALEJANDRO [facility], [address], [place], [address], 01/03/2024 09:16:08 CMP, serum or plasma 2023 024 JOSE ALEJANDRO [facility], [address], [place], [address], 01/03/2024 09:16:02 HbA1c (hemoglo bin A1c), blood 2023 024 JOSE ALEJANDRO [facility], [address], [place], [address], 08/18/2023 06:19:18 CBC w/ auto diff 2023 024 JOSE ALEJANDRO [facility], [address], [place], [address], 07/27/2023 06:20:40 BNP (B-type natriure tic peptide) , serum or plasma 2023 024 JOSE ALEJANDRO [facility], [address], [place], [address], 07/27/2023 10:14:44 CMP, serum or plasma 2023 024 JOSE ALEJANDRO [facility], [address], [place], [address], 07/27/2023 06:20:38 Referral pain manageme nt referral 2023 024 JOSE ALEJANDROSUMI Reese [facility], [address] [facility] , [place], [address], 11/09/2023 15:40:35 bariatri c surgery referral 2023 024 [facility], [address], [address], [place], [address], 10/09/2023 16:42:51 Procedures None recorded . Surgeries None recorded . Imaging None recorded . Medication Orders mupiroci n 2 % topical ointment 2023 025 [facility], [address] [place] [address], [address], 02/27/2024 14:43:17 neomycin -polymyx in-hydro luis 3.5 mg-10,00 0 unit/mL- 1 % ear drops,edwards sp 2023 024 [facility], [address] [place] [address], [address], 09/22/2023 16:21:25 nystatin 100,000 unit/gra m topical cream [address] [facility], [address] [place] [address], [address], 09/22/2023 16:07:22 doxycycl ine monohydr ate 100 mg tablet [address] [facility] [address] [facility], [address] [place] [address], [address], 08/04/2023 14:14:21 cephalex in 500 mg capsule 2023 024 [email or web address], [address] [place] [address], [address], 07/26/2023 14:44:06 Patient TargetsNo targets recorded. Patient Instructions Encounter Date Encounter Id Patient Instructions Last Modified By Organization Details Last Modified Time 04/24/2023 [id number] A healthy lifestyle: care instructions [email or web address] Not available 04/24/2023 12:53:03 07/26/2023 [id number] learning about type 2 diabetes [email or web address] Not available 07/26/2023 15:27:16 type 2 diabetes: care instructions [email or web address] Not available 07/26/2023 15:27:16 athlete's foot: care instructions [email or web address] Not available 07/26/2023 15:13:22 jock itch: care instructions [email or web address] Not available 07/26/2023 15:13:22 anemia: care instructions [email or web address] Not available 07/26/2023 15:27:16 chronic pain: care instructions [email or web address] Not available 07/26/2023 15:17:03 bronchitis: care instructions [email or web address] Not available 07/26/2023 15:15:49 heart failure: care instructions [email or web address] Not available 07/26/2023 15:27:16 learning about heart failure Not available 07/26/2023 15:27:16 12/13/2023 [id number] influenza (flu) vaccine: care instructions [email or web address] Not available 12/14/2023 06:33:21 01/02/2024 [id number] learning about type 2 diabetes [email or web address] Not available 01/02/2024 15:40:25 type 2 diabetes: care instructions [email or web address] Not available 01/02/2024 15:40:25 anemia: care instructions [email or web address] Not available 01/02/2024 15:47:21 heart failure: care instructions Not available 01/02/2024 15:47:21 learning about heart failure [email or web address] Not available 01/02/2024 15:47:21 Reason for Referral Bariatric Surgery Referral f or Morbid obesity Referring Physician: [facility], Encounter Date: 04/24/2023 Pain Management Referral for Chronic pain Referring Physician: Lev [facility], Encounter Date: 07/26/2023 Results Created Date Observation Date Name Description Value Unit Range Abnormal Flag Note LastModifiedBy Organization Detail LastModifiedTime 07/26/19 24 07/26/2023 COMP. METAB OLIC PANEL (14) glucose 168 mg/dL 70-99 above high normal Not Available [facility] [address] [place] [address], [address], 07/27/2023 06:20:38 07/26/19 24 07/26/2023 COMP. METAB OLIC PANEL (14) BUN 17 mg/dL 8-27 Not Available [facility] [address] [place], [address], 07/27/2023 06:20:38 07/26/19 24 07/26/2023 COMP. METAB OLIC PANEL (14) creatinine 0.63 mg/dL 0.76-1 .27 below low normal Not Available [facility] [address] [place] [address], [address], 07/27/2023 06:20:38 07/26/19 24 07/26/2023 COMP. METAB OLIC PANEL (14) eGFR 96 >=60 Units for eGFR value s are mL/mi n/1.7 3 The eGFR Calcu latio n has not been valid ated for patie nts under the age of 18. If test resul ts are displ ayed for a patie nt under the age of 18, disre elvin that value . Not Available [facility] [address] [place] [address], [address], 07/27/2023 06:20:38 07/26/19 24 07/26/2023 COMP. METAB OLIC PANEL (14) BUN/creatini ne ratio 27 10-28 Not Available [facility] [address] [place], [address], 07/27/2023 06:20:38 07/26/19 24 07/26/2023 COMP. METAB OLIC PANEL (14) sodium 137 mmol/ L 134-14 4 Not Available [facility] [address] [place], [address], 07/27/2023 06:20:38 07/26/19 24 07/26/2023 COMP. METAB OLIC PANEL (14) potassium 4.8 mmol/ L 3.5-5. 2 Not Available [facility] [address] [place] [address], [address], 07/27/2023 06:20:38 07/26/19 24 07/26/2023 COMP. METAB OLIC PANEL (14) chloride 98 mmol/ L 96-106 Not Available [facility] [address] [place] [address], [address], 07/27/2023 06:20:38 07/26/19 24 07/26/2023 COMP. METAB OLIC PANEL (14) carbon dioxide, total 24 mmol/ L 20-29 Not Available [facility] [address] [place] [address], [address], 07/27/2023 06:20:38 07/26/19 24 07/26/2023 COMP. METAB OLIC PANEL (14) calcium 9.4 mg/dL 8.7-10 .3 Not Available [facility] [address] [place] [address], [address], 07/27/2023 06:20:38 07/26/19 24 07/26/2023 COMP. METAB OLIC PANEL (14) protein, total 7.0 g/dL 6.0-8. 5 Not Available [facility] [address] [place] [address], [address], 07/27/2023 06:20:38 07/26/19 24 07/26/2023 COMP. METAB OLIC PANEL (14) albumin 4.0 g/dL 3.8-4. 8 Not Available [facility] [address] [place] [address], [address], 07/27/2023 06:20:38 07/26/19 24 07/26/2023 COMP. METAB OLIC PANEL (14) globulin, total 3.0 g/dL 1.5-4. 5 Not Available [facility] [address] [place] [address], [address], 07/27/2023 06:20:38 07/26/19 24 07/26/2023 COMP. METAB OLIC PANEL (14) A/G ratio 1.0 1.2-2. 2 below low normal Not Available [facility] [address] [place], [address], 07/27/2023 06:20:38 07/26/19 24 07/26/2023 COMP. METAB OLIC PANEL (14) bilirubin, total 0.5 mg/dL 0.0-1. 2 Not Available [facility] [address] [place], [address], 07/27/2023 06:20:38 07/26/19 24 07/26/2023 COMP. METAB OLIC PANEL (14) alkaline phosphatase 197 IU/L 44-121 above high normal Not Available [facility] [address] [place], [address], 07/27/2023 06:20:38 07/26/19 24 07/26/2023 COMP. METAB OLIC PANEL (14) AST (SGOT) 56 IU/L 0-40 above high normal Not Available [facility] [address] [place], [address], 07/27/2023 06:20:38 07/26/19 24 07/26/2023 COMP. METAB OLIC PANEL (14) ALT (SGPT) 41 IU/L 0-32 above high normal Not Available [facility] [address] [place], [address], 07/27/2023 06:20:38 07/26/19 24 07/26/2023 CBC WITH DIFFE RENTI AL/PL ATELE T WBC 16.8 x10e3 /uL 3.4-10 .8 above high normal Not Available [facility] [address] [place], [address], 07/27/2023 06:20:40 06/05/20 24 07/26/2023 CBC WITH DIFFE RENTI AL/PL ATELE T RBC 4.60 x10e6 /uL 3.77-5 .28 Not Available [facility] [address] [place], [address], 07/27/2023 06:20:40 07/26/19 24 07/26/2023 CBC WITH DIFFE RENTI AL/PL ATELE T hemoglobin 10.1 g/dL 11.1-1 5.9 below low normal Not Available [facility] [address] [place], [address], 07/27/2023 06:20:40 07/26/19 24 07/26/2023 CBC WITH DIFFE RENTI AL/PL ATELE T hematocrit 35.9 % 34.0-4 6.6 Not Available [facility] [address] [place], [address], 07/27/2023 06:20:40 07/26/19 24 07/26/2023 CBC WITH DIFFE RENTI AL/PL ATELE T MCV 78 fL 79-97 below low normal Not Available [facility] [address] [place], [address], 07/27/2023 06:20:40 07/26/19 24 07/26/2023 CBC WITH DIFFE RENTI AL/PL ATELE T MCH 22.0 pg 26.6-3 3.0 below low normal Not Available [facility] [address] [place], [address], 07/27/2023 06:20:40 07/26/19 24 07/26/2023 CBC WITH DIFFE RENTI AL/PL ATELE T MCHC 28.1 g/dL 31.5-3 5.7 below low normal Not Available [facility] [address] [place], [address], 07/27/2023 06:20:40 07/26/19 24 07/26/2023 CBC WITH DIFFE RENTI AL/PL ATELE T RDW 18.4 % 11.5-1 4.5 above high normal Not Available [facility] [address] [place], [address], 07/27/2023 06:20:40 07/26/19 24 07/26/2023 CBC WITH DIFFE RENTI AL/PL ATELE T platelets 545 x10e3 /uL 150-45 0 above high normal Not Available [facility] [address] [place], [address], 07/27/2023 06:20:40 07/26/19 24 07/26/2023 CBC WITH DIFFE RENTI AL/PL ATELE T neutrophils 67 % notest b. Not Available [facility] [address] [place], [address], 07/27/2023 06:20:40 07/26/19 24 07/26/2023 CBC WITH DIFFE RENTI AL/PL ATELE T lymphs 22 % notest b. Not Available [facility] [address] [place] [address], [address], 07/27/2023 06:20:40 07/26/19 24 07/26/2023 CBC WITH DIFFE RENTI AL/PL ATELE T monocytes 7 % notest b. Not Available [facility] [address] [place], [address], 07/27/2023 06:20:40 07/26/19 24 07/26/2023 CBC WITH DIFFE RENTI AL/PL ATELE T eos 2 % notest b. Not Available [facility] [address] [place], [address], 07/27/2023 06:20:40 07/26/19 24 07/26/2023 CBC WITH DIFFE RENTI AL/PL ATELE T basos 0 % notest b. Not Available [facility] [address] [place] [address], [address], 07/27/2023 06:20:40 07/26/19 24 07/26/2023 CBC WITH DIFFE RENTI AL/PL ATELE T neutrophils (absolute) 11.3 x10e3 /uL 1.4-7. 0 above high normal Not Available [facility] [address] [place], [address], 07/27/2023 06:20:40 07/26/19 24 07/26/2023 CBC WITH DIFFE RENTI AL/PL ATELE T lymphs (absolute) 3.7 x10e3 /uL 0.7-3. 1 above high normal Not Available [facility] [address] [place], [address], 07/27/2023 06:20:40 07/26/19 24 07/26/2023 CBC WITH DIFFE RENTI AL/PL ATELE T monocytes(ab solute) 1.3 x10e3 /uL 0.1-0. 9 above high normal Not Available [facility] [address] [place], [address], 07/27/2023 06:20:40 07/26/19 24 07/26/2023 CBC WITH DIFFE RENTI AL/PL ATELE T eos (absolute) 0.4 x10e3 /uL 0.0-0. 4 Not Available [facility] [address] [place], [address], 07/27/2023 06:20:40 07/26/19 24 07/26/2023 CBC WITH DIFFE RENTI AL/PL ATELE T baso (absolute) 0.1 x10e3 /uL 0.0-0. 2 Not Available [facility] [address] [place], [address], 07/27/2023 06:20:40 07/26/19 24 07/26/2023 CBC WITH DIFFE RENTI AL/PL ATELE T immature granulocytes 0.6 % notest b. Not Available [facility] [address] [place], [address], 07/27/2023 06:20:40 07/26/19 24 07/26/2023 CBC WITH DIFFE RENTI AL/PL ATELE T immature grans (abs) 0.1 x10e3 /uL 0.0-0. 1 Not Available [facility] [address] [place], [address], 07/27/2023 06:20:40 07/26/19 24 07/26/2023 CBC WITH DIFFE RENTI AL/PL ATELE T NRBC 0 % 0-0 Not Available [facility] [address] [place], [address], 07/27/2023 06:20:40 07/26/19 24 07/27/2023 B-TYP E NATRI URETI C PEPTI DE B-type natriuretic peptide 309.5 pg/mL 0.0-10 0.0 above high normal Sieme ns [facility] metho dolog y Not Available [facility] ([facility]) [address] [facility], [place], [address], 07/27/2023 10:14:44 08/17/19 24 08/18/2023 HEMOG LOBIN A1C hemoglobin A1C 7.3 % 4.8-5. 6 above high normal Predi abete s: 5.7 - 6.4 Diabe jacy: >6.4 Glyce shaina contr ol for adult s with diabe jacy: <7.0 Not Available [facility] ([facility]) [address] [facility], [place], [address], 08/18/2023 06:19:18 01/02/2001/03/2024 COMP. METAB OLIC PANEL (14) glucose 151 mg/dL 70-99 above high normal Not Available [facility] ([facility]) [address] [place], [address], 01/03/2024 09:16:02 01/02/20 24 01/03/2024 COMP. METAB OLIC PANEL (14) BUN 18 mg/dL 8-27 Not Available [facility] ([facility]) [address] [facility], [place], [address], 01/03/2024 09:16:02 01/02/20 24 01/03/2024 COMP. METAB OLIC PANEL (14) creatinine 0.79 mg/dL 0.57-1 .00 Not Available [facility] ([facility]) [address] [place], [address], 01/03/2024 09:16:02 01/02/20 24 01/03/2024 COMP. METAB OLIC PANEL (14) eGFR 80 mL/mi n/1.7 3 >59 Not Available [facility] ([facility]) [address] [facility], [place], [address], 01/03/2024 09:16:02 01/02/20 24 01/03/2024 COMP. METAB OLIC PANEL (14) BUN/creatini ne ratio 23 12-28 Not Available [facility] ([facility]) [address] [place], [address], 01/03/2024 09:16:02 01/02/20 24 01/03/2024 COMP. METAB OLIC PANEL (14) sodium 135 mmol/ L 134-14 4 Not Available [facility] ([facility]) [address] [place], [address], 01/03/2024 09:16:02 01/02/20 24 01/03/2024 COMP. METAB OLIC PANEL (14) potassium 4.5 mmol/ L 3.5-5. 2 Not Available [facility] ([facility]) [address] [place], [address], 01/03/2024 09:16:02 01/02/20 24 01/03/2024 COMP. METAB OLIC PANEL (14) chloride 93 mmol/ L 96-106 below low normal Not Available [facility] ([facility]) [address] [place], [address], 01/03/2024 09:16:02 01/02/20 24 01/03/2024 COMP. METAB OLIC PANEL (14) carbon dioxide, total 26 mmol/ L 20-29 Not Available [facility] ([facility]) [address] [place], [address], 01/03/2024 09:16:02 01/02/20 24 01/03/2024 COMP. METAB OLIC PANEL (14) calcium 9.2 mg/dL 8.7-10 .3 Not Available [facility] ([facility]) [address] [place], [address], 01/03/2024 09:16:02 01/02/20 24 01/03/2024 COMP. METAB OLIC PANEL (14) protein, total 7.1 g/dL 6.0-8. 5 Not Available [facility] ([facility]) [address] [place], [address], 01/03/2024 09:16:02 01/02/20 24 01/03/2024 COMP. METAB OLIC PANEL (14) albumin 3.8 g/dL 3.9-4. 9 below low normal Not Available [facility] ([facility]) [address] [place], [address], 01/03/2024 09:16:02 01/02/20 24 01/03/2024 COMP. METAB OLIC PANEL (14) globulin, total 3.3 g/dL 1.5-4. 5 Not Available [facility] ([facility]) [address] [place], [address], 01/03/2024 09:16:02 01/02/20 24 01/03/2024 COMP. METAB OLIC PANEL (14) bilirubin, total 0.7 mg/dL 0.0-1. 2 Not Available [facility] ([facility]) [address] [facility] [place], [address], 01/03/2024 09:16:02 01/02/20 24 01/03/2024 COMP. METAB OLIC PANEL (14) alkaline phosphatase 286 IU/L 44-121 above high normal Not Available [facility] ([facility]) [address] [facility] [place], [address], 01/03/2024 09:16:02 01/02/20 24 01/03/2024 COMP. METAB OLIC PANEL (14) AST (SGOT) 65 IU/L 0-40 above high normal Not Available [facility] ([facility]) [address] [facility] [place], [address], 01/03/2024 09:16:02 01/02/20 24 01/03/2024 COMP. METAB OLIC PANEL (14) ALT (SGPT) 58 IU/L 0-32 above high normal Not Available [facility] ([facility]) [address] [facility], [place], [address], 01/03/2024 09:16:02 01/02/20 24 01/03/2024 CBC WITH DIFFE RENTI AL/PL ATELE T WBC 15.9 x10e3 /uL 3.4-10 .8 above high normal Not Available [facility] ([facility]) [address] [facility] [place], [address], 01/03/2024 09:16:04 01/02/20 24 01/03/2024 CBC WITH DIFFE RENTI AL/PL ATELE T RBC 5.08 x10e6 /uL 3.77-5 .28 Not Available [facility] ([facility]) [address] [facility] [place], [address], 01/03/2024 09:16:04 01/02/20 24 01/03/2024 CBC WITH DIFFE RENTI AL/PL ATELE T hemoglobin 15.3 g/dL 11.1-1 5.9 Not Available [facility] ([facility]) [address] [facility], [place], [address], 01/03/2024 09:16:04 01/02/20 24 01/03/2024 CBC WITH DIFFE RENTI AL/PL ATELE T hematocrit 46.9 % 34.0-4 6.6 above high normal Not Available [facility] ([facility]) [address] [facility], [place], [address], 01/03/2024 09:16:04 01/02/20 24 01/03/2024 CBC WITH DIFFE RENTI AL/PL ATELE T MCV 92 fL 79-97 Not Available [facility] ([facility]) [address] [facility], [place], [address], 01/03/2024 09:16:04 01/02/20 24 01/03/2024 CBC WITH DIFFE RENTI AL/PL ATELE T MCH 30.1 pg 26.6-3 3.0 Not Available [facility] ([facility]) [address] [facility], [place], [address], 01/03/2024 09:16:04 01/02/20 24 01/03/2024 CBC WITH DIFFE RENTI AL/PL ATELE T MCHC 32.6 g/dL 31.5-3 5.7 Not Available [facility] ([facility]) [address] [facility], [place], [address], 01/03/2024 09:16:04 01/02/20 24 01/03/2024 CBC WITH DIFFE RENTI AL/PL ATELE T RDW 13.6 % 11.7-1 5.4 Not Available [facility] ([facility]) [address] [facility], [place], [address], 01/03/2024 09:16:04 01/02/20 24 01/03/2024 CBC WITH DIFFE RENTI AL/PL ATELE T platelets 357 x10e3 /uL 150-45 0 Not Available [facility] ([facility]) [address] [facility], [place], [address], 01/03/2024 09:16:04 01/02/20 24 01/03/2024 CBC WITH DIFFE RENTI AL/PL ATELE T neutrophils 66 % notest ab. Not Available [facility] ([facility]) [address] [facility], [place], [address], 01/03/2024 09:16:04 01/02/20 24 01/03/2024 CBC WITH DIFFE RENTI AL/PL ATELE T lymphs 26 % notest ab. Not Available [facility] ([facility]) [address] [facility], [place], [address], 01/03/2024 09:16:04 01/02/20 24 01/03/2024 CBC WITH DIFFE RENTI AL/PL ATELE T monocytes 6 % notest ab. Not Available [facility] ([facility]) [address] [facility], [place], [address], 01/03/2024 09:16:04 01/02/20 24 01/03/2024 CBC WITH DIFFE RENTI AL/PL ATELE T eos 1 % notest ab. Not Available [facility] ([facility]) [address] [facility], [place], [address], 01/03/2024 09:16:04 01/02/20 24 01/03/2024 CBC WITH DIFFE RENTI AL/PL ATELE T basos 0 % notest ab. Not Available [facility] ([facility]) [address] [facility], [place], [address], 01/03/2024 09:16:04 01/02/20 24 01/03/2024 CBC WITH DIFFE RENTI AL/PL ATELE T neutrophils (absolute) 10.5 x10e3 /uL 1.4-7. 0 above high normal Not Available [facility] ([facility]) [address] [facility], [place], [address], 01/03/2024 09:16:04 01/02/20 24 01/03/2024 CBC WITH DIFFE RENTI AL/PL ATELE T lymphs (absolute) 4.1 x10e3 /uL 0.7-3. 1 above high normal Not Available [facility] ([facility]) [address] [facility], [place], [address], 01/03/2024 09:16:04 01/02/20 24 01/03/2024 CBC WITH DIFFE RENTI AL/PL ATELE T monocytes(ab solute) 1.0 x10e3 /uL 0.1-0. 9 above high normal Not Available [facility] ([facility]) [address] [place], [address], 01/03/2024 09:16:04 01/02/20 24 01/03/2024 CBC WITH DIFFE RENTI AL/PL ATELE T eos (absolute) 0.2 x10e3 /uL 0.0-0. 4 Not Available [facility] ([facility]) [address] [place], [address], 01/03/2024 09:16:04 01/02/20 24 01/03/2024 CBC WITH DIFFE RENTI AL/PL ATELE T baso (absolute) 0.1 x10e3 /uL 0.0-0. 2 Not Available [facility] ([facility]) [address] [facility], [place], [address], 01/03/2024 09:16:04 01/02/20 24 01/03/2024 CBC WITH DIFFE RENTI AL/PL ATELE T immature granulocytes 1 % notest ab. Not Available [facility] ([facility]) [address] [place], [address], 01/03/2024 09:16:04 01/02/20 24 01/03/2024 CBC WITH DIFFE RENTI AL/PL ATELE T immature grans (abs) 0.1 x10e3 /uL 0.0-0. 1 Not Available [facility] ([facility]) [address] [facility], [place], [address], 01/03/2024 09:16:04 01/02/20 24 01/03/2024 B-TYP E NATRI URETI C PEPTI DE B-type natriuretic peptide 164.2 pg/mL 0.0-10 0.0 above high normal Sieme ns [facility] metho dolog y Not Available [facility] ([facility]) [address] [facility], [place], [address], 01/03/2024 09:16:08 01/02/20 24 01/02/2024 HbA1c (hemo globi n A1c), blood HbA1c 7.6 Not Available In-Office Order Internal Use Only DO Not Attach Compendium DO Not Attach Compendium, Do Not Delete/merge, [id number] 01/02/2024 15:23:30 05/01/19 24 04/27/2023 trans -thor acic echoc ardio gram (TTE) (PROC ) No observ ation record ed. [email or web address] Not Available 2023 14:43:17 10/10/19 24 10/10/2023 MAMMO , diagn ostic , digit al, bilat eral No observ ation record ed. JOSE ALEJANDRO Jarrett [address] [place], [address], 10/13/2023 16:33:25 10/10/19 24 10/10/2023 MAMMO , diagn ostic , unila teral No observ ation record ed. JOSE ALEJANDRO Os ([facility]) Registration/ Lab [address] [place], [address], 10/16/2023 09:29:17 01/13/20 24 01/12/2024 XR, knee, 3 view No observ ation record ed. [facility] [address] [place], [address], 01/15/2024 10:21:11 01/13/20 24 01/12/2024 XR, knee, 3 view No observ ation record ed. [facility] [address] [facility] [place], [address], 01/15/2024 10:21:12 Result Notes None recorded. Problems Name Problem SNOMED Code Status Onset Date Resolution Date Notes Provider Name and Address Organization Details Recorded Time Osteoart hritis of knee 262833138 Active 2017 bilatera l, severe tricompa rtmental , worse to medial side Not Available [facility] 2 22:49:56 Urinary incontin ence 490338629 Active Not Available [facility] 22:49:56 Acute contact dermatit is 198841927 Completed 05/02/2017 Ninfa Covarrubias PA-C Attn: Accounting ,[address] [place], [place], [address] [place] [address] , [facility] 8 10:59:41 Allergic rhinitis 76793615 Active Not Available [facility] 2 22:49:56 Conjunct ivitis [id number] Completed 05/31/2018 Ninfa Covarrubias PA-C Attn: Accounting ,[address] [place], [place], [address] [place] [address] , [facility] 9 12:05:53 Purpuric rash [id number] Completed 05/31/2018 Ninfa Covarrubias PA-C Attn: Accounting ,[address] [place], [place], [address] [place] [address] , [facility] 9 12:05:17 Hyperten sive disorder 94365350 Active Not Available [facility] 2 22:49:56 Gastroes ophageal reflux disease 428546557 Active Not Available [facility] 22:49:56 Deficien cy of vitamin D3 321554670 Active Not Available [facility] 22:49:56 Aspartat e aminotra nsferase serum level above referenc e range [id number] Completed 05/11/2017 Removal Reason: resolved Ninfa Covarrubias PA-C Attn: Accounting ,[address] [facility], [place], [address] , [place] [facility] 8 10:41:01 Alcoholi sm 6048845 Active Not Available [facility] 2 22:49:56 Acute pharyngi tis 721052748 Completed 04/13/2017 Ninfa Covarrubias PA-C Attn: Accounting ,[address] [facility], [place], [address] , [place] [facility] 8 14:27:00 Peripher al vascular disease 302660943 Active Not Available [facility] 2 22:49:56 Corns and callus Active Not Available [facility] 2 22:49:56 Cellulit is of foot [id number] Completed 201405/11/2017 Ninfa Covarrubias PA-C Attn: Accounting ,[address] [place], [address] , [facility] 8 10:41:07 Multiple joint pain 70358589 Active Not Available [facility] 2 22:49:56 Chronic obstruct danis pulmonar y disease 77373847 Active Not Available [facility] 2 22:49:56 Obstruct danis sleep apnea syndrome 00121137 Active Not Available [facility] 2 22:49:56 Smoker 94852806 Active Not Available [facility] 2 22:49:56 Smoker's respirat ory syndrome 34678054 Active Not Available [facility] 2 22:49:56 Obesity 454871295 Active Not Available [facility] 2 22:49:56 Noncompl iance with therapeu tic regimen [id number] Completed 05/31/2018 Ninfa Covarrubias PA-C Attn: Accounting ,[address] [place], [address] , [place] [facility] 9 12:05:01 Otitis media [id number] Completed 05/02/2017 Ninfa Covarrubias PA-C Attn: Accounting ,[address] [facility], [place], [address] , [facility] 8 10:59:21 Problem Notes None recorded. Procedures Surgical History Date Name Laterality Status Provider Name and Address Organization Details Recorded Time 3 Cerumen Removal completed Dasia Pinto MA [facility] 08/24/2022 14:45:52 9 Cerumen Removal completed Ninfa Covarrubias PA-C Attn: Accounting,[address] [facility], [place], [address], [facility] 08/29/2018 10:53:37 7 Unlisted px foot/toes completed Ninfa Covarrubias PA-C Attn: Accounting,[address] [place], [address], [facility] 05/23/2017 09:37:22 6 Angioplasty With Stent completed Ninfa Covarrubias PA-C Attn: Accounting,[address] [place], [address], [facility] 05/23/2017 09:36:46 5 Dilation and Curettage completed Sherie Villa MA [facility] 04/13/2017 14:04:53 Imaging Results Imaging Date Name Status LastModified by Organization Details LastModified Time 04/27/2023 trans-thoracic echocardiogram (TTE) (PROC) completed [email or web address] Information not available 05/01/2023 14:43:17 10/10/2023 MAMMO, diagnostic, digital, bilateral completed JOSE ALEJANDRO Carballo [address] [place], [address], 10/13/2023 16:33:25 10/10/2023 MAMMO, diagnostic, unilateral completed JOSE ALEJANDRO Os ([facility]) Registration/[place] [address] [place], [address], 10/16/2023 09:29:17 01/12/2024 XR, knee, 3 view completed JOSE ALEJANDRO Reese [address] [place], [address], 01/15/2024 10:21:11 01/12/2024 XR, knee, 3 view completed JOSE ALEJANDRO Reese [address] [place], [address], 01/15/2024 10:21:12 Procedure Notes None recorded. Medical Equipment None Reported. Allergies Allergen ID Allergen Name Allergen Category Reaction Reaction Severity Criticality Documentation Date Start Date Code Code System Note Provider Name and Address Organization Details Recorded Time 146215 potassium chloride medicatio n Not available Not available Not available 11/05/2020 8591 RxNorm table t cause s nause a needs capsu les Not Available Not Available Not Available [id number] Ozempic medicatio n Not available Not available Not available 11/29/2022 RxNorm diarr hea, vomit ing, stoma ch cramp s Not Available Not Available Not Available Medications Name Sig Start Date Stop Date Status Note LastModified by Organization Details LastModified Time Prescript ion - Renewal 04/13 completed Not Available Not Available Not Available Prescript ion - Prior Authoriza tion Request 04/13 completed Not Available Not Available Not Available Santyl 250 unit/gram topical ointment APPLY TO CLEANSED AFFECTED AREA ONCE DAILY. 04/13 completed Not Available Not Available Not Available cyclobenz aprine 10 mg tablet Take 1 tablet by mouth twice daily as needed 09/21 completed Not Available Not Available Not Available amoxicill in 500 mg capsule TAKE 1 CAPSULE BY MOUTH THREE TIMES DAILY FOR 7 DAYS 01/31 completed Not Available Not Available Not Available atorvasta tin 40 mg tablet Take 1 tablet by mouth once daily active Not Available Not Available No t Available buspirone 5 mg tablet TAKE 1 TABLET BY MOUTH TWICE DAILY NEEDED active Not Available Not Available No t Available bupropion HCl SR 150 mg tablet,12 hr sustained -release TAKE 1 TABLET BY MOUTH TWICE DAILY 08/29 completed Not Available Not Available Not Available activated charcoal 260 mg capsule take 2 capsules po after every episode of diarrhea , up to 8 capsules /day 10/31 completed Not Available Not Available Not Available potassium chloride ER 10 mEq capsule,e xtended release TAKE 4 CAPSULES BY MOUTH ONCE DAILY ALONG WITH LASIX TABLET 05/20 completed Not Available Not Available Not Available prednison e 10 mg tablet TAKE 1 TABLET BY MOUTH ONCE DAILY FOR 7 DAYS 11/03 completed Not Available Not Available Not Available gabapenti n 600 mg tablet Take 1 tablet 3 times a day by oral route as directed for 90 days. 04/13 completed Not Available Not Available Not Available doxycycli ne hyclate 100 mg capsule TAKE 1 CAPSULE BY MOUTH TWICE DAILY FOR 10 DAYS 10/31 completed Not Available Not Available Not Available Zyrtec-D 5 mg-120 mg tablet,ex tended release Take 1 tablet every 12 hours by oral route as directed . 08/02 completed Not Available Not Available Not Available clindamyc in HCl 300 mg capsule Take 1 capsule every 8 hours by oral route. 03/16 completed Not Available Not Available Not Available citalopra m 40 mg tablet TAKE ONE TABLET BY MOUTH ONCE DAILY DIRECTED 04/13 completed Not Available Not Available Not Available trazodone 50 mg tablet TAKE 1 TABLET BY MOUTH AT BEDTIME active Not Available Not Available No t Available oxybutyni n chloride ER 10 mg tablet,ex tended release 24 hr Take 1 tablet every day by oral route as directed . 07/11 completed Not Available Not Available Not Available azithromy yu 250 mg tablet TAKE 2 TABLETS BY MOUTH ON DAY 1, AND THEN TAKE 1 TABLET BY MOUTH ONCE A DAY ON DAY 2 THROUGH DAY 5 01/01 completed Not Available Not Available Not Available pravastat in 40 mg tablet TAKE 1 TABLET BY MOUTH ONCE DAILY IN THE EVENING 12/05 completed Not Available Not Available Not Available fluconazo le 150 mg tablet TAKE 1 TABLET BY MOUTH NOW, THEN REPEAT IN 1 WEEK 01/01 completed Not Available Not Available Not Available benzonata te 200 mg capsule TAKE 1 CAPSULE BY MOUTH THREE TIMES DAILY FOR 7 DAYS 01/04 completed Not Available Not Available Not Available Lotrisone 1 %-0.05 % topical cream APPLY TO THE AFFECTED AND SURROUND ING AREAS OF SKIN BY TOPICAL ROUTE 2 TIMES PER DAY IN THE MORNING AND EVENING FOR 2 WEEKS 02/09 completed Not Available Not Available Not Available albuterol sulfate 1.25 mg/3 mL solution for nebulizat ion USE 1 VIAL IN NEBULIZE R 4 TIMES DAILY NEEDED 2021 active Not Available Not Available Not Avai lable hydrocodo ne 5 mg-acetam inophen 325 mg tablet TAKE 1 TO 2 TABLETS BY MOUTH EVERY 6 HOURS NEEDED FOR MODERATE OR MORE SEVERE PAIN 07/01 completed Not Available Not Available Not Available ondansetr on HCl 8 mg tablet TAKE 1 TABLET BY MOUTH TWICE DAILY NEEDED FOR 5 DAYS 01/02 completed Not Available Not Available Not Available meloxicam 15 mg tablet TAKE 1 TABLET BY MOUTH ONCE DAILY active Not Available Not Available No t Available naltrexon e 50 mg tablet Take 1 tablet by oral route. 05/15 completed cardiolo gist Not Available Not Available Not Available famotidin e 40 mg tablet Take one half tablet twice a day by oral route for 90 days 07/01 completed Not Available Not Available Not Available prednison e 20 mg tablet Take 1 tablet every day by oral route for 5 days. 10/31 completed Not Available Not Available Not Available Debrox 6.5 % ear drops INSTILL 5 DROPS INTO AFFECTED EAR(S) BY OTIC ROUTE ONCE DAILY FOR 5 DAYS 09/10 completed PRN Not Available Not Available Not Available acetazola mide 250 mg tablet TAKE 1 TABLET BY MOUTH ONCE DAILY 01/02 completed Not Available Not Available Not Available acetamino phen 300 mg-codein e 30 mg tablet TAKE 1 TABLET BY MOUTH TWICE DAILY NEEDED active Not Available Not Available No t Available clopidogr el 75 mg tablet TAKE 1 TABLET BY MOUTH ONCE DAILY active Not Available Not Available No t Available Aspir-Low 81 mg tablet,de layed release Take 1 tablet every day by oral route. active Not Available Not Available No t Available amlodipin e 5 mg tablet Take 1 tablet by mouth once daily 09/21 completed Not Available Not Available Not Available ciproflox acin 500 mg tablet TAKE 1 TABLET BY MOUTH EVERY 12 HOURS 02/26 completed Not Available Not Available Not Available sulfameth oxazole 800 mg-trimet hoprim 160 mg tablet Take 1 tablet by mouth twice daily for 10 days active Not Available Not Available No t Available doxycycli ne monohydra te 100 mg tablet Take 1 tablet by mouth twice daily for 14 days active Not Available Not Available No t Available tramadol 50 mg tablet TAKE 1 TABLET BY MOUTH EVERY 6 TO 8 HOURS NEEDED 05/20 completed Not Available Not Available Not Available triamcino lone acetonide 0.1 % topical cream APPLY TOPICALL Y TWICE DAILY TO AFFECTED AREA WITH NYSTATIN FOR ONE WEEK. active Not Available Not Available No t Available spironola ctone 25 mg tablet TAKE 1 TABLET BY MOUTH ONCE DAILY FOR 90 DAYS 04/23 completed Not Available Not Available Not Available amoxicill in 500 mg tablet Take 1 tablet 3 times a day by oral route for 7 days. 01/31 completed Not Available Not Available Not Available ketorolac 0.5 % eye drops 06/06 completed Not Available Not Available Not Available meloxicam 7.5 mg tablet TAKE 1 TABLET BY MOUTH TWICE DAILY WITH MEALS 09/21 completed Not Available Not Available Not Available Guaiatuss in AC 10 mg-100 mg/5 mL oral liquid Take 10 mL every 4 hours by oral route for 10 days. 04/13 completed Not Available Not Available Not Available potassium chloride ER 20 mEq tablet,ex tended release(p art/cryst ) TAKE 2 TABLETS BY MOUTH TWICE DAILY WITH FUROSEMI DE active Not Available Not Available No t Available famotidin e 20 mg tablet Take 1 tablet by mouth twice daily 10/31 completed Not Available Not Available Not Available furosemid e 80 mg tablet TAKE 1 TABLET BY MOUTH ONCE DAILY active Not Available Not Available No t Available ciproflox acin 0.3 % eye drops 3 drops to affected ear tid for 7 days 04/13 completed Not Available Not Available Not Available phenazopy ridine 100 mg tablet TAKE 1 TABLET BY MOUTH THREE TIMES DAILY FOR 3 DAYS 02/21 completed Not Available Not Available Not Available amlodipin e 10 mg tablet Take 1 tablet every day by oral route in the morning for 90 days. 04/13 completed Not Available Not Available Not Available benzonata te 100 mg capsule TAKE 1 CAPSULE BY MOUTH THREE TIMES DAILY NEEDED FOR 10 DAYS 02/21 completed Not Available Not Available Not Available doxycycli ne monohydra te 100 mg capsule TAKE 1 CAPSULE BY MOUTH TWICE DAILY FOR 10 DAYS active Not Available Not Available No t Available cephalexi n 500 mg capsule TAKE 1 CAPSULE BY MOUTH EVERY 8 HOURS DIRECTED FOR 21 DAYS 07/25 completed Not Available Not Available Not Available paroxetin e 20 mg tablet TAKE 1 TABLET BY MOUTH ONCE DAILY 03/21 completed Not Available Not Available Not Available triamcino lone acetonide 0.1 % topical ointment APPLY A THIN LAYER TO THE AFFECTED AREA(S) BY TOPICAL ROUTE 2 TIMES PER DAY 02/09 completed Not Available Not Available Not Available nystatin 100,000 unit/gram topical cream APPLY TOPICALL Y TWICE DAILY FOR 14 DAYS active Not Available Not Available No t Available ranitidin e 150 mg tablet TAKE 1 TABLET BY MOUTH TWICE DAILY DIRECTED FOR 90 DAYS active Not Available Not Available No t Available lisinopri l 10 mg tablet Take 1 tablet by mouth once daily active Not Available Not Available No t Available Advair Diskus 250 mcg-50 mcg/dose powder for inhalatio n INHALE 1 DOSE BY MOUTH TWICE DAILY active Not Available Not Available No t Available nicotine 21 mg/24 hr daily transderm al patch 06/06 completed Not Available Not Available Not Available nystatin- triamcino lone 100,000 unit/g-0. 1 % topical cream APPLY CREAM TOPICALL Y TWICE DAILY active Not Available Not Available No t Available fluoxetin e 10 mg capsule Take 1 capsule by mouth once daily 07/22 completed Not Available Not Available Not Available betametha sone dipropion ate 0.05 % topical cream APPLY TOPICALL Y TO THE AFFECTED AND SURROUND ING AREA(S) OF SKIN TWICE DAILY IN THE MORNING AND EVENING FOR 2 WEEKS. 04/13 completed Not Available Not Available Not Available sertralin e 25 mg tablet TAKE 1 TABLET BY MOUTH ONCE DAILY active Not Available Not Available No t Available omeprazol e 20 mg capsule,d elayed release TAKE 1 CAPSULE BY MOUTH ONCE DAILY active Not Available Not Available No t Available diclofena c sodium 75 mg tablet,de layed release Take 1 tablet twice a day by oral route for 30 days. 04/13 completed Not Available Not Available Not Available cephalexi n 500 mg tablet Take 1 tablet 4 times a day by oral route for 10 days. 04/23 completed Not Available Not Available Not Available monteluka st 10 mg tablet TAKE 1 TABLET BY MOUTH ONCE DAILY IN THE EVENING 11/28 completed Not Available Not Available Not Available hydroxyzi ne HCl 25 mg tablet TAKE 1 TABLET BY MOUTH THREE TIMES DAILY NEEDED FOR ANXIETY OR RASH 01/02 completed Not Available Not Available Not Available hydrochlo rothiazid e 25 mg tablet Take 1 tablet every day by oral route in the morning. 06/06 completed has progress danis urinary incontin ence Not Available Not Available Not Available mupirocin 2 % topical ointment APPLY A SMALL AMOUNT OF OINTMENT TOPICALL Y TO AFFECTED AREA THREE TIMES DAILY 02/26 completed Not Available Not Available Not Available furosemid e 20 mg tablet TAKE 1 TABLET BY MOUTH ONCE DAILY 11/03 completed increase d dosage for Hospital to 80 mg Not Available Not Available Not Available gabapenti n 100 mg capsule TAKE 1 CAPSULE BY MOUTH TWICE DAILY active Not Available Not Available No t Available ergocalci ferol (vitamin D2) 1,250 mcg (50,000 unit) capsule TAKE 1 CAPSULE BY MOUTH ONCE A WEEK active Not Available Not Available No t Available nystatin 100,000 unit/gram topical powder APPLY POWDER TOPICALL Y TO AFFECTED AREA TWICE DAILY NEEDED 02/26 completed Not Available Not Available Not Available levofloxa yu 500 mg tablet Take 1 tablet every day by oral route for 7 days. 09/10 completed Not Available Not Available Not Available methylpre dnisolone 4 mg tablets in a dose pack TAKE BY MOUTH DIRECTED ON INSIDE OF PACKAGE 11/03 completed Not Available Not Available Not Available oxybutyni n chloride 5 mg tablet TAKE 1 TABLET BY MOUTH ONCE DAILY IN THE EVENING active Not Available Not Available No t Available fluoxetin e 20 mg capsule Take 1 capsule by mouth once daily 2024 active Not Available Not Available Not Avai lable fluticaso ne propionat e 50 mcg/actua tion nasal spray,adalgisa pension USE 1 SPRAY(S) IN EACH NOSTRIL ONCE DAILY active Not Available Not Available No t Available clotrimaz ole 1 % topical cream APPLY TOPICALL Y TO THE AFFECTED AND SURROUND ING AREA(S) OF SKIN TWICE DAILY IN THE MORNING AND EVENING FOR 2 WEEKS 04/13 completed Not Available Not Available Not Available cholecalc iferol (vitamin D3) 125 mcg (5,000 unit) capsule Take 1 capsule every day by oral route. 11/21 completed Not Available Not Available Not Available Ventolin HFA 90 mcg/actua tion aerosol inhaler INHALE 2 PUFFS BY MOUTH 4 TIMES DAILY NEEDED active Not Available Not Available No t Available neomycin- polymyxin -hydrocor t 3.5 mg-10,000 unit/mL-1 % ear drops,adalgisa p INSTILL 4 DROPS INTO AFFECTED EAR(S) THREE TIMES DAILY FOR 10 DAYS 09/21 completed Not Available Not Available Not Available enoxapari n 40 mg/0.4 mL subcutane ous syringe INJECT 1 SYRINGE SUBCUTAN EOUSLY TWICE DAILY FOR 4 DAYS 07/01 completed Not Available Not Available Not Available azithromy yu 500 mg tablet Take 1 tablet every day by oral route for 3 days. 2015 active Not Available Not Available Not Avai lable nicotine 21mg/24hr -14mg/24h r-7mg/24h r daily transderm patches,s equentl Apply 1 patch every day by transder mal route in the morning. 03/16 completed Not Available Not Available Not Available bupropion HCl XL 300 mg 24 hr tablet, extended release TAKE 1 TABLET BY MOUTH ONCE DAILY active Not Available Not Available No t Available metoprolo l tartrate 25 mg tablet TAKE 1/2 (ONE-ELIDA F) TABLET BY MOUTH TWICE DAILY FOR 90 DAYS 04/23 completed Not Available Not Available Not Available Spiriva with [employer] r 18 mcg and inhalatio n capsules INHALE THE CONTENTS OF ONE CAPSULE (2 PUFFS) ONCE DAILY DIRECTED . 04/13 completed Not Available Not Available Not Available meloxicam 04/13 completed Not Available Not Available Not Available oxybutyni n 04/13 completed Not Available Not Available Not Available FeroSul 325 mg (65 mg iron) tablet TAKE 1 TABLET BY MOUTH ONCE DAILY 02/05 completed bld count normal Not Available Not Available Not Available Allergy Relief (cetirizi ne) 10 mg tablet Take 1 tablet by mouth once daily active Not Available Not Available No t Available Calmosept ine 0.44 %-20.6 % topical ointment APPLY OINTMENT EXTERNAL LY TWICE DAILY NEEDED 2023 active Not Available Not Available Not Avai lable loratadin e 10 mg capsule TAKE 1 TABLET BY MOUTH ONCE DAILY NEEDED 08/29 completed Not Available Not Available Not Available Calmosept ine 0.44 %-20.6 % topical ointment in packet APPLY OINTMENT EXTERNAL LY TWICE DAILY NEEDED active Not Available Not Available No t Available Breo Ellipta 100 mcg-25 mcg/dose powder for inhalatio n Inhale 1 puff every day by inhalati on route. 07/12 completed Not Available Not Available Not Available guaifenes in ER 600 mg tablet, extended release 12 hr Take 1 tablet twice a day by oral route. 11/21 completed Not Available Not Available Not Available Jardiance 10 mg tablet TAKE 1 TABLET BY MOUTH ONCE DAILY active Not Available Not Available No t Available Entresto 49 mg-51 mg tablet TAKE 1 TABLET BY MOUTH TWICE DAILY active Not Available Not Available No t Available Entresto 24 mg-26 mg tablet TAKE 1 TABLET BY MOUTH TWICE DAILY 05/20 completed Not Available Not Available Not Available Ozempic 0.25 mg or 0.5 mg (2 mg/1.5 mL) subcutane ous pen injector Inject 0.25 mg every week by subcutan eous route. 2022 active Not Available Not Available Not Avai lable Ozempic 0.25 mg or 0.5 mg (2 mg/3 mL) subcutane ous pen injector 07/25 completed Not Available Not Available Not Available Vitals Date Recorded Body height Body mass index (BMI) Body weight Body temperature Respiratory rate Heart rate Oxygen saturation Oxygen saturation in Arterial blood by Pulse oximetry Systolic blood pressure Diastolic blood pressure Provider Name and Address Organization Details Last Updated DateTime 4 157.48 cm 62.4 kg/m2 [id number] g 96.6 [degF] 18 /min 62 /min 90 % 90 % 90 mm[Hg] 53 mm[Hg] Rebecca Dykes [place] [facility] 4 12:09:54 Date Recorded Systolic blood pressure Diastolic blood pressure Provider Name and Address Organization Details Last Updated DateTime 04/24/2023 100 mm[Hg] 60 mm[Hg] Devin Benavides [facility] 04/24/2023 12:46:15 Date Recorded Body height Body mass index (BMI) Body weight Oxygen saturation Oxygen saturation in Arterial blood by Pulse oximetry Heart rate Respiratory rate Body temperature Systolic blood pressure Diastolic blood pressure Provider Name and Address Organization Details Last Updated DateTime 4 157.48 cm 67.5 kg/m2 560115. 63 g 96 % 96 % 99 /min 16 /min 95.7 [degF] 103 mm[Hg] 68 mm[Hg] Dasia Pinto MA [facility] 4 14:46:36 Date Recorded Body height Oxygen saturation Oxygen saturation in Arterial blood by Pulse oximetry Heart rate Respiratory rate Body temperature Systolic blood pressure Diastolic blood pressure Provider Name and Address Organization Details Last Updated DateTime 4 157.48 cm 95 % 95 % 87 /min 16 /min 95.7 [degF] 122 mm[Hg] 68 mm[Hg] Dasia Pinto MA [facility] 4 09:57:07 Date Recorded Body height Oxygen saturation Oxygen saturation in Arterial blood by Pulse oximetry Heart rate Respiratory rate Body temperature Systolic blood pressure Diastolic blood pressure Provider Name and Address Organization Details Last Updated DateTime 4 157.48 cm 98 % 98 % 88 /min 16 /min 98.7 [degF] 113 mm[Hg] 69 mm[Hg] Areli Guerra MA [facility] 4 15:10:58 Date Recorded Body height Body mass index (BMI) Body weight Oxygen saturation Oxygen saturation in Arterial blood by Pulse oximetry Heart rate Body temperature Systolic blood pressure Diastolic blood pressure Provider Name and Address Organization Details Last Updated DateTime 4 157.48 cm 67.1 kg/m2 304352. 4 g 96 % 96 % 100 /min 95.7 [degF] 120 mm[Hg] 83 mm[Hg] Dasia Pinto MA [facility] 4 15:23:13 Social History Question Answer Notes LastModified by Organizat ion Details LastModified Time Tobacco Smoking Status Former Smoker Quit July 31, 2019 Dasia Pinto MA null, [facility] 11/20/2019 10:13:28 Do You Have An Advance Directive? Yes Melody Quezada Pt. Daughter Information not available 05/15/2020 What Is Your Level Of Alcohol Consumption? None Quit July 31, 2019 Information not available 08/30/2018 Are You Blind Or Do You Have Difficulty Seeing? Yes Glasses Information not available 05/15/2020 What Is Your Level Of Caffeine Consumption? Heavy 2 Cups Of Coffee A Day With Creamer Information not available 05/20/2021 How Much Tobacco Do You Chew? None Information not available 04/13/2017 In The 14 Days Before Symptom Onset, Have You Had Close Contact With A Laboratory-confi rmed COVID-19 While That Case Was Ill? No Information not available 05/15/2020 In The 14 Days Before Symptom Onset, Have You Had Close Contact With A Person Who Is Under Investigation For COVID-19 While That Person Was Ill? No Information not available 05/15/2020 Have You Been To An Area Known To Be High Risk For COVID-19? No Information not available 05/15/2020 Are You Currently Employed? No Information not available 05/15/2020 Are You Deaf Or Do You Have Serious Difficulty Hearing? Yes [place] [employer] Ear Information not available 05/15/2020 What Type Of Diet Are You Following? REGULAR Information not available 04/13/2017 Which Illicit Or Recreational Drugs Have You Used? None Information not available 04/13/2017 Do You Or Have You Ever Used E-cigarettes Or Vape? Never Used Electronic Cigarettes Information not available 11/28/2018 Education 9 Informati on not available 04/13/2017 What Is Your Occupation? Retired Information not available 04/13/2017 Are There Any Guns Present In Your Home? No Information not available 05/15/2020 Legally Blind In One Or Both Eyes? No Information not available 08/30/2018 Live Alone Or With Others? With Others [email or web address] Information not available 02/06/2014 In The Past 7 Days, How Many Days Did You Exercise? 0 Information not available 09/07/2023 On The Days When You Exercised, How Long Did You Exercise Each Day (in Minutes)? 0 Information not available 09/07/2023 How Intense Was Your Typical Exercise? Currently Not Exercising Information not available 09/07/2023 In The Past 7 Days, How Much Pain Have You New Freedom? A Lot Information not available 09/07/2023 In General, Would You Say You Health Is: Poor Information not available 09/07/2023 How Would You Describe The Condition Of Your Mouth And Teeth- Including False Teeth Or Dentures? Good Information not available 09/07/2023 Each Night, How Many Hours Of Sleep Do You Get? 8 Information not available 09/07/2023 Has Anyone Ever Told You That You Snore? Yes Information not available 09/07/2023 In The Past 7 Days, How Often Have You New Freedom Sleepy In The Daytime? Usually Information not available 09/07/2023 On They Days When You Drank Alcohol, How Often Did You Have 4 Or More Drinks At A Time? Never Information not available 09/07/2023 Do You Have A High School Diploma Or Higher Education? No 10th Grade Completed Information not available 05/15/2020 Do You Sometimes Have To Miss Your Medical Appointments Due To Difficult Getting Transportation? Yes Information not available 05/15/2020 Do You Feel Unfairly Treated Due To Things Such As Race, Age, Gender, Disability Or Some Other Reason? No Information not available 05/15/2020 Do You Feel Physically And Emotionally Safe While Living At Home? Yes Information not available 05/15/2020 Do You Feel Physically And Emotionally Safe In Your Neighborhood Or Other Public Places? Yes Information not available 05/15/2020 # Alcohol Drinks Per Week 0 Information not available 09/07/2023 Marital Status Domestic Partner Lives W/ BF Information not available 02/28/2018 What Was The Date Of Your Most Recent Tobacco Screening? 04/24/2023 Information not available 04/24/2023 How Many Children Do You Have? 2 Son Was Killed In A Car Accident At [place] 14 Information not available 07/01/2020 What Is Your Current Pack Years? [email or web address] ears Information not available 05/15/2020 What Is Your Relationship Status? Information not available 05/15/2020 Do You Use Your Seat Belt Or Car Seat Routinely? Yes Information not available 05/15/2020 Seat Belts Used Routinely Yes [email or web address] Information not available 02/06/2014 Are You Sexually Active? No Information not available 05/15/2020 Smoke Alarm In Home Yes [email or web address] Information not available 02/06/2014 Do You Have Smoke And Carbon Monoxide Detectors In Your Home? Yes Information not available 05/15/2020 At What Age Did You Start Smoking Tobacco? 13 [email or web address] Information not available 02/06/2014 Are You Passively Exposed To Smoke? No Information not available 05/15/2020 Do You Or Have You Ever Used Smokeless Tobacco? Never Used Smokeless Tobacco Information not available 11/28/2018 How Much Tobacco Do You Smoke? No Information not available 11/20/2019 General Stress Level Medium [email or web address] Information not available 04/13/2017 Do You Feel Stressed (tense, Restless, Nervous, Or Anxious, Or Unable To Sleep At Night)? [id number] Information not available 05/15/2020 Do You Use Any Illicit Or Recreational Drugs? No Information not available 05/15/2020 Do You Use Sunscreen Routinely? No Information not available 05/15/2020 Has Tobacco Cessation Counseling Been Provided? No Information not available 02/21/2023 On What Date Was Tobacco Cessation Counseling Provided? 04/24/2023 Information not available 04/24/2023 How Many Years Have You Smoked Tobacco? 50 Pt. Stated 50 + YEARS ON 11/28/18 Information not available 11/28/2018 Do You Or Have You Ever Used Any Other Forms Of Tobacco Or Nicotine? No Information not available 05/15/2020 Sex: Female Functional Status Question Answer Note LastModified by Organization D etails LastModified Time Are you able to care for yourself? Yes [email or web address] Information n ot available 02/06/2014 What is your exercise level? None Information not available 05/15/2020 Mental Status None recorded. Family History Relationship Description Onset Age of this Age Resolved Age Notes LastModified by Organization Details LastModified Time Mother Malignant neoplasm of vertebral column [email or web address] Not available 2015 14:25:47 Father Hypertensive disorder [email or web address] Not available 2015 14:25:47 Father Cerebrovascu lar accident lenka ar Not available 04/13/2017 13:56:27 Father Chronic obstructive pulmonary disease lenka ar Not available 04/13/2017 13:56:52 Daughter Malignant tumor of lung 40 mets to brain [email or web address] Not available 08/30/2018 13:01:23 Daughter Malignant neoplastic disease Lung, Brain, and Colon [email or web address] Not available 03/21/2019 10:16:47 Notes:no changes reported , 01/02/24 Medical History Condition Response Coronary Artery Disease N Other N Gout N Thyroid Disease N High Blood Pressure Y Atrial Fibrillation N Emphysema N Depression Y COPD Y Blood Clots N Congenital Heart Disease N Pneumonia N Lung Mass N Sinusitis N Anxiety Disorder N Cystic Fibrosis N Muscle, Joint, or Bone Problems Y Obesity Y Arthritis Y Blood Clot N Acid Reflux (GERD) Y Cancer N Stroke N High Cholesterol Y Liver Disease N Headaches N Kidney Disease N Allergies/Hayfever N Thyroid Problems N Kidney or Bladder Problems Y GI Problems N NSAID Use N Skin Problems N Anemia N Heart Attack (OR) N Mental Illness N Diabetes N Seizures/Epilepsy N Tuberculosis N Diverticulitis N Asthma N Allergies N Sleep Apnea Y Hepatitis N Heart Disease N Bronchitis N Pulmonary Embolism N Hypertension Y Heart Failure N Osteoporosis N Gynecological History Statement/Question Response Date of LMP LMP Definite Obstetrics History GPAL:G 3 P 2 0 1 1 Type Value Full Term 2 Spontaneous 1 Living 1 Total 3 Immunizations Vaccine Type Date Status Note Provider Nam e and Address Organization Details Recorded Time Influenza, split virus, quadrivalent, preservative 9 completed Not Available [facility] 06/16/2021 14:25:02 SARS-COV-2 (COVID-19) vaccine, UNSPECIFIED 1 completed Not Available [facility] 06/16/2021 14:25:02 Influenza, high-dose, trivalent, PF 9 completed Not Available [facility] 03/09/2019 02:38:13 Pneumococcal conjugate PCV 13 9 completed Not Available [facility] 03/09/2019 02:50:30 Influenza, high-dose, quadrivalent, PF 1 completed Lev Hernández MD Attn: [address] [place], [address], [facility] 01/04/2021 14:27:06 pneumococcal polysaccharide PPV23 1 completed Dasia Pinto MA [facility], [place] - [facility] 01/04/2021 14:57:52 Influenza, high-dose, quadrivalent, PF 4 completed Lev Hernández MD Attn: [address] [place], [address], [facility] 02/22/2023 11:44:32 Influenza, high-dose, trivalent, PF 4 completed SERGIO Álvarez, [place] - [facility] 12/14/2023 11:54:25 Past Encounters Encounter ID Performer Location Encounter Start Date Encounter Closed Date Diagnosis/Indication Diagnosis SNOMED-CT Code Diagnosis ICD10 Code Diagnosis Note [id number] SERGIO Nugent ([facility]) [address] [place] [address] 02/06/2014 10:03:27 02/06/2014 11:18:48 Chronic obstructive pulmonary disease [id number] has been out of Spiriva for 2 weeks Obstructiv e sleep apnea syndrome 40717116 patient completed sleep study and is in need of CPAP with humidifier Smoker 69882847 Smoker's r espiratory syndrome 59960132 Obesity 396801651 Noncomplia nce with therapeutic regimen 428488821 Needs infl uenza immunization 777346908 will refer to pharmacy as clinic has exhausted supply, will also request Shingles vaccine. [id number] Crystal Sharpe Marcy (Fam Med) [address] [place] [address] 06/06/2014 09:36:27 06/06/2014 10:37:04 Urinary incontinence 893593946 Medication monitoring 171053616 Acute cont act dermatitis 843119582 [id number] Marilynn Hurtado MA [facility] (Fam Med) [address] [place] [address] 07/11/2014 11:34:19 07/11/2014 13:49:37 Allergic rhinitis 06967356 Chronic ob structive pulmonary disease 05108978 has been out of Spiriva for 2 weeks Smoker 84627267 Conjunctivitis 2264469 Purpuric rash 070148340 [id number] Marilynn Hurtado MA [facility] (Fam Med) [address] [place] [address] 10/08/2014 10:01:01 10/08/2014 11:49:26 Hypertensive disorder 20046414 Chronic ob structive pulmonary disease 42668687 has been out of Spiriva for 2 weeks Obesity 225357638 Gastroesop hageal reflux disease 057545844 Smoker 67155428 [id number] [facility] [facility] ([facility]) [address] [facility] [address] [place] [address] 11/04/2014 09:28:38 11/04/2014 10:25:02 Gynecologic examination [id number] [facility] (Fam Med) [address] [place] [address] 11/10/2014 09:40:54 11/10/2014 10:16:31 Alcoholism 8073112 Aspartate aminotransferase serum level above reference range 550998878 Acute pharyngitis 708218090 [id number] Crystal Ogclau Reese (Fam Med) [address] [place] [address] 02/09/2015 14:31:49 02/09/2015 15:22:59 Peripheral vascular disease 220792026 I73.9 Corns and callus 5003203 00 L84 Aspartate aminotransferase serum level above reference range 916594401 R74.0 Medication monitoring 39 1409727 Z51.81 [id number] Crystal Ogclau Reese (Fam Med) [address] [place] [address] 03/16/2015 09:17:39 03/16/2015 10:25:56 Chronic obstructive pulmonary disease 62669681 J44.9 patient is current of flu and pneumonia vaccines. She is refusing to consider colonoscop y screening. Smoker 33874916 F17.210 Alcoholism 1964201 F10.2 0 1 case beer per week. Hypertensive disorder 38 771983 I10 Peripheral vascular disease 277003519 I73.9 Multiple joint pain 3567 8005 M25.50 Noncomplia nce with therapeutic regimen 172128985 Z91.19 continues to smoke, refuses health screening. [id number] Jose Francisco Lugo PA-C [facility] [address] [place] [address] 08/03/2015 11:35:39 08/03/2015 12:39:35 Chronic obstructive pulmonary disease 26932731 J44.9 Cellulitis of foot 18445 6007 L03.119 Hypertensive disorder 38 884717 I10 [id number] Jose Francisco Lugo PA-C [facility] [address] [place] [address] 09/25/2015 14:12:46 09/25/2015 14:50:10 Chronic obstructive pulmonary disease 13590814 J44.9 Otitis media 87608313 H6 5.02 [id number] B[facility] (Adult Med) [address] [place] [address] 04/13/2017 13:36:43 04/18/2017 11:28:11 Gastroesophageal reflux disease 047271988 K21.9 poorly controlled , instructed to elevate head of bed, not use more pillows. start PPI, can use H2 rowan for breakthrou gh sxs. Chronic ob structive pulmonary disease 82044601 J44.9 fair control, instructed to stop smoking. Need to have rescue inhaler with her at all times. Urinary incontinence 165 655282 R32 consider stopping oxybutinin if it is not helping and she needs to wear diapers anyway. needs supplies Hypertensive disorder 38 424494 I10 not well controlled . amlodipine 10mg can contribute to edema. decrease amlodipine 5mg and start lisinopril 10mg, recheck BP at f/u. Deficiency of vitamin D3 250030932 E55.9 h/o low vit D. not on supplement at this time Peripheral vascular disease 175737790 I73.9 h/o stent placement to bilateral legs, still on plavix & ASA. pain behind knees doesn't seem to be vascular in nature. will get x-rays to r/o arthritis, she needs to re-establi sh with vascular surgeon if pain persists and if she experience s any change to skin/temp Hyperlipidemia 36738559 E78.2 stopped pravastati n on own, will get labs and make recommenda tions on medication s. Knee pain 22504293 M25.5 61 M25.562 likely OA w/ body habitus and pain w/ weight bearing & stiffness w/ prolonged sitting. check X-ray, start once a day NSAID, avoid other NSAIDs. refer to ortho if x-rays show OA. Foot pain 02000412 M79.6 71 has had surgeries to right foot and still having a lot of pain, problems walking, causing her to lose mobility and independen ce. given AAOS foot/ankle conditioni ng exercises. Will also recommend PT for eval for motorized scooter Increased frequency of urination 603741336 R35.0 consider stopping oxybutinin if it isn't helping her incontinen ce. Depressive disorder 3548 9007 F32.1 Tobacco user 843513738 Z 72.0 start bupropion, she deferred patch. Body mass index 40+ - severely obese 414552914 Z68.43 discussed weight loss through diet & exercise to help chronic pain sxs in feet and legs/knees . [facility] (Adult Med) [address] [place] [address] 05/11/2017 10:15:57 05/15/2017 13:59:22 Multiple joint pain 76079397 M25.50 pain mgmt did not refill her hydrocodon e due to refill discrepanc y. Instructed to cont meloxicam. Take tramadol as needed. Hypertensive disorder 38 464399 I10 better control since increasing lisinopril and decreasing amlodipine due to LE edema. Deficiency of vitamin D3 132571544 E55.9 h/o low vit D. not on supplement at this time, says she can't afford it. Level was 26 last month Chronic pain syndrome 37 0228700 G89.4 recommend she return to pain mgmt to see what other options she may have. Knee pain 87730694 M25.5 61 M25.562 patient encouraged to cont pain mgmt, PT exercises and work on weight loss. We are also working on getting her a motorized scooter or wheel chair as she has very limited mobility Cough 83971669 R05 no signs of acute infection at this time, stop smoking. start allergy meds for sxs. Posterior rhinorrhea 758 80154 R09.82 likely contributi ng to cough, start generic zyrtec to control rhinorrhea Depressive disorder 3548 9007 F32.1 dtr recently dx with metastatic cancer, she deferred counseling at this time. cont bupropion [id number] [facility] (Adult Med) [address] [place] [address] 08/21/2017 10:01:26 08/22/2017 14:35:42 Chronic obstructive pulmonary disease 39969208 J44.9 Lungs clear on exam today, but reports nebulizer not working for 2-3 months; instructed to stop smoking. Need to have rescue inhaler with her at all times. Hypertensive disorder 38 377217 I10 better control since increasing lisinopril and decreasing amlodipine due to LE edema. Increased frequency of urination 182693512 R35.0 likely worse w/ recent cough; negative UA. Control cough and see if that helps. Increase oxybutynin to 3 times a day Osteoarthr itis of knee 749858515 M17.0 can't get to bus stop using her cane, no reliable transporta tion to and from appts. She completed evaluation at [facility] including physical therapy for wheelchair , but couldn't find any providers that would take her insurance. She is not sure why since she has both medicaid and medicare. She also can't find an orthopedic doctor who takes her insurance. x-rays from June show severe OA bilaterall y.Increase d tramadol to TID Nasal congestion 7513626 0 R09.81 postnasal drainage likely source of cough, lungs clear on exam. start flonase. she feels improvemen t w/ mucinex, but expensive. Tobacco user 490032017 Z 72.0 taking bupropion, she deferred patch. Screening for malignant neoplasm of colon 436814603 Z12.11 patient brought kit & paperwork that was sent to her home from her insurance and to be completed by this office. We may need to get co-signatu re from Dr. Rucker prior to mailing as she is Medicare. [id number] [facility] (Adult Med) [address] [place] [address] 11/21/2017 10:33:05 11/24/2017 15:38:43 Congestion of nasal sinus 62027132 R09.81 no infection noted on exam, sxs present for 2 days. Treat symptomati tami. Wax in ear canal 7068639 02 H61.21 she hasn't been using debrox for months, recommend she restart Pruritic rash 73331363 L 28.2 pt thinks it is due to nerves , she took Klonopin in past for this. No benzos recommende d for her at this time, trial of hydroxyzin e. Obstructiv e sleep apnea syndrome 80608795 G47.[address] Conde in past, will refer her back to pulmonolog y for appropriat e CPAP settings since it has been 2 years since her last visit and use of CPAP. Osteoarthr itis of knee 479843106 M17.0 Patient's [place] was stopped by pain management earlier in year due to discrepanc y in Rx and having friend picker / packer for her, negative UDS in April. dwp that this provider will not provide fci norco tx for her chronic pain. She is agreeable to finding new pain mgmt but would like to wait until she has transporta tion. Influenza vaccination declined 479824343 Z28.21 Hypertensive disorder 38 146494 I10 elevated today, cont current meds, possibly due to recent cold med use. Limit nyquil to few more days. [id number] [facility] (Adult Med) [address] [place] [address] 02/28/2018 08:22:57 02/28/2018 10:38:13 Osteoarthritis of knee 202236011 M17.0 We will refill tramadol for both her OA of chano knees and pain after removal of cast from right wrist. She has to schedule [facility] ortho appt for knees once she has transporta tion. Hypertensive disorder 38 958845 I10 Fair control, cont current meds. Chronic ob structive pulmonary disease 06094552 J44.9 Lungs clear on exam today, instructed to stop smoking. Need to have rescue inhaler with her at all times. Urinary incontinence 165 753359 N39.42 oxybutynin TID not helping, using diapers anyway. Possible urinary retention since she is having incontinen ce less than 1/2 hr after first void. She doesn't feel it, will just notice dribbling down her legs at times. She is agreeable to seeing Upper resp iratory infection 33617081 J06.9 likely viral, cough persisting 2 weeks due to continued postnasal drainage. Cont hydroxyzin e 1-2 times daily, OK to stop loratadine due to dry mouth. Cont singulair. Use flonase only for congestion since she has had some mild nose bleeds. Fracture a t wrist and/or hand level 421478991 S62.91XB right distal radius fx, cast removed last week, no further f/u with ortho. She can't afford to go to PT and use up 8 of her 15 transporta tion rides. Can't propel her motorized WC due to wrist/hand stiffness & pain so she can't get on bus either. Keep hand elevated above heart for swelling, use compressio n wrap at night. Ice 3 times a day. OK to restart meloxicam. discussed using ball to improve mobility of hand along w/ wrist exercises from PT Tobacco user 937520246 Z 72.0 taking bupropion, she deferred patch. reduced to 1/2ppd and will cont to try and wean herself off. Moderate r ecurrent major depression 99882817 F33.1 she is down about sliding back w/ her health due to recent right wrist fx, can't even write. She is also limited in movement due to her knees and can't use her new motorized wC. Cont bupropion and she will call if mood worsens. She has to get her transporta tion figured out, renew bus pass, etc. [id number] B[facility] (Adult Med) [address] [place] [address] 05/30/2018 10:20:55 06/01/2018 11:51:53 Chronic obstructive pulmonary disease 34276709 J44.9 Lungs clear on exam today, instructed to stop smoking. cont inhalers Hypertensive disorder 38 673451 I10 Controlled , cont current meds. Obesity 586983157 E66.9 BMI 57; discussed medication s for help w/ weight loss, she is not a good candidate for amphetamin e type medication s. Can cause rapid or irregular heartbeat, delirium, panic, psychosis, and heart failure and w/ her hx of COPD could make it more difficult to breathe. She is already on bupropion, we can add naltrexone close to Contrave dosing. Advised that tramadol may be affected. She doesn't feel tramadol helps much anyway, recommend she STOP tramadol. Peripheral vascular disease 028507764 I73.9 h/o stent placement to bilateral legs, still on plavix & ASA. pain behind knees doesn't seem to be vascular in nature. x-rays showed severe medial OA.She needs to re-establi sh with vascular surgeon if pain persists and if she experience s any change to skin/temp Adult heal th examination 469194323 Z00.00 Osteoarthr itis of knee 911200751 M17.0 STOP tramadol, recommend she f/u with ortho, this is limiting her mobility and making depression worse Mood disorder 75993905 F 39 related to loss of mobility, chronic health issues. Recommend she cont bupropion and we work on weight loss to see if that helps her mood. Body mass index 40+ - severely obese 321323940 Z68.43 see above. She is also considerin g gastric bypass type procedure, but can't afford any out of pocket costs. [id number] [facility] (Adult Med) [address] [place] [address] 08/29/2018 08:54:12 08/30/2018 13:55:07 Chronic obstructive pulmonary disease 19682068 J44.9 Lungs clear on exam today, instructed to stop smoking. cont inhalers, we will see about getting a new nebulizer. Didn't like ventolin, will try Pro-air. New Freedom Advair worked better and was cheaper than Breo Screening mammography 24 897174 Z12.31 overdue, last was 2016 per our records Osteoarthr itis of knee 532784760 M17.0 Severe tri-compar tmental. Ortho did not want to give her tramadol beyond one refill. She is a poor surgical candidate Administra tion of pneumococcal vaccine 38703181 Z23 wants to wait until next visit Screening for malignant neoplasm of colon 429095918 Z12.11 Mixed anxi ety and depressive disorder 036378386 F41.8 Increase bupropion, she would like to restart paxil. Impacted c erumen in right ear 0858064032 751336 H61.21 improved s/p lavage. improved hearing Injury of tympanic membrane 046444415 S09.22XA left TM w/ erythema; stop using curette, possible injury from this. Urinary incontinence 165 646331 N39.42 oxybutynin TID not helping, using diapers anyway. Possible urinary retention since she is having incontinen ce less than 1/2 hr after first void. She doesn't feel it, will just notice dribbling down her legs at times. told her to lose weight. Stop oxybutynin , causing dry mouth Alcoholism 7540697 F10.2 1 quit in April, advised her to cont cessation Tobacco user 120092026 Z 72.0 taking bupropion, she deferred patch. reduced to 1/2ppd and will cont to try and wean herself off. dwp need to quit, dtr has primary lung cancer w/ mets to brain. Body mass index 40+ - severely obese 657699667 Z68.43 Unfortunat ajcky she gained weight while taking bupropion and naltrexone , contrave not covered by ins. Stop naltrexone , will interfere w/ her tramadol. work on portion reduction, given 1800 jose meal planning handout. Also considerin g gastric bypass type procedure, but can't afford any out of pocket costs. [id number] MD Marcy Moseley 14 IM [address] [facility] [address] [place] [address] 11/28/2018 08:48:50 12/03/2018 10:02:50 Chronic obstructive pulmonary disease 36855023 J44.9 Essential hypertension 53492238 I10 Anxiety 27536123 F41.9 Mixed anxi ety and depressive disorder 799439292 F41.8 Urinary incontinence 165 491012 R32 Dyslipidemia 257380924 E 78.5 Gastroesop hageal reflux disease 306927997 K21.9 Insomnia 880117482 G47.0 0 Smoker 42595103 F17.200 Morbid obesity 841531486 E66.01 Adult heal th examination 019563840 Z00.00 Needs infl uenza immunization 872553306 Z28.3 Administra tion of pneumococcal vaccine 34609106 Z23 Osteoarthritis 388954734 M19.90 Reduced mobility 9478427 Z74.09 [id number] MD Marcy Moseley 14 IM [address] [facility] [place] [address] 03/21/2019 10:02:25 03/22/2019 14:06:11 Coronary arteriosclerosis 75299651 I25.10 Morbid obesity 393836462 E66.01 Smoker 27147634 F17.200 Prediabetes 189481914 R7 3.03 [id number] MD Marcy Moseley 14 IM [address] [facility] [place] [address] 11/20/2019 08:14:34 11/20/2019 19:11:05 Abstinent alcoholic 730027445 F10.21 Adult [facility] examination 512219338 Z00.00 Pt was encouraged to receive an influenza vaccinatio n and a pneumovax2 3 vaccinatio n. Impacted c erumen of bilateral ears 6833196141 639102 H61.23 Upper resp iratory infection 69488504 J06.9 Chronic ob structive pulmonary disease 12145463 J44.9 Ex-cigarette smoker 2810 19046 Z87.891 Abnormal gait 32930288 R 26.9 Needs infl uenza immunization 131512731 Z28.3 [id number] Jose Francisco Herman [facility] [address] [place] [address] 11/26/2019 11:00:14 11/26/2019 14:58:03 Otitis externa 1314852 H60.92 Impacted c erumen of bilateral ears 2355132581 645760 H61.23 cerumen cleared Chronic rhinitis 5949128 6 J31.0 start saline [id number] Jose Francisco Herman MD [facility] [address] [place] [address] 12/10/2019 11:40:01 12/10/2019 13:59:43 Otitis externa 1100761 H60.92 [id number] MD Marcy Moseley 14 IM [address] [facility] [address] [place] [address], [place] [address] 03/02/2020 09:13:37 03/03/2020 16:49:05 Under care of orthopedic surgeon 570735555 Z76.89 History of fall 28118681 9 Z91.81 Sleep disorder 48361064 G47.9 [id number] MD Marcy Moseley 14 IM [address] [facility] [address] [place], [place] [address], [place] [address] 05/15/2020 08:16:01 05/18/2020 08:27:45 Under care of orthopedic surgeon 092946546 Z76.89 Edema of l ower extremity 143830308 R60.0 Morbid obesity 628413308 E66.01 Administra tion of SARS-CoV-2 antigen vaccine 987958260 Z23 pt is signed up for this series Ex-smoker 8295723 Z87.89 1 for 9 months now History of alcohol abuse 791798227 F10.10 abstinent for 9 months Impaired mobility 120643 05 Z74.09 [id number] MD Marcy Moseley 14 IM [address] [facility] [address] [place], [place] [address], [place] [address] 07/01/2020 11:45:17 07/03/2020 14:00:26 Morbid obesity 899845509 E66.01 Ex-smoker 5966047 Z87.89 1 for 9 months now Abstinent alcoholic 3009 96168 F10.21 Adult heal th examination 932341623 Z00.00 Pt was encouraged to receive an influenza vaccinatio n and a pneumovax2 3 vaccinatio n. Prediabetes 593023075 R7 3.03 Screening mammography 24 310121 Z12.31 Under care of keg filler 820422898 Z76.89 Under care of orthopedic surgeon 889771349 Z76.89 Knee pain 48672001 M25.5 69 Sleep apnea 98984699 G47 .30 Edema of l ower extremity 723152332 R60.0 [id number] [facility] [address] [place] [address] 07/13/2020 10:11:24 07/14/2020 09:46:28 Obstructive sleep apnea syndrome 97225291 G47.33 Cpap titration Body mass index 40+ - severely obese 824350006 Z68.44 Chronic ob structive pulmonary disease 35220343 J44.9 Continue MDI/DPI MDI/DPI teaching New PFT, 6 min walk Nicotine dependence 5629 4008 F17.200 Will order LDCT, lung cancer screning. Discussed risk/benef its, importance of annual screening adherence, and smoking cessation. Dyspnea on exertion 6084 5006 R06.09 Echo CXR Gastroesop hageal reflux disease 633222633 K21.9 Taking Famotidine Hypertensive disorder 38 655566 I10 - Educated patient on importance of taking medication s and monitoring BP. [id number] MD Marcy Moseley 14 IM [address] [facility] [place] [address] 11/03/2020 15:17:02 11/06/2020 06:21:09 Morbid obesity 381996462 E66.01 Obstructiv e sleep apnea syndrome 33707960 G47.33 Hypokalemia 61355525 E87 .6 Congestive heart failure 98877152 I50.9 Prediabetes 762310912 R7 3.03 Screening mammography 24 387135 Z12.31 UTD Screening for malignant neoplasm of colon 606171014 Z12.11 [id number] MD Marcy Moseley 14 [address] [facility] [place] [address] 01/04/2021 13:50:23 01/05/2021 15:28:00 Morbid obesity 679954939 E66.01 Influenza immunization advised 336605784 Z71.89 Adult [facility] th examination 218571492 Z00.00 Health Risk Assessment collected and reviewed Essential hypertension 11619231 I10 Bilateral arthritis of knees 1224617402 569264 M13.861 pt wants to get knee replacemen t surgery--w ill check with Dr. Dobbins Administra tion of pneumococcal vaccine 18025831 Z23 Ex-smoker 2839018 Z87.89 1 since 2020 Abstinent alcoholic 3009 72150 F10.21 since 2020....PT L! [id number] MD Marcy Moseley 14 IM [address] [facility] [place] [address] 05/20/2021 14:05:41 05/21/2021 12:49:04 Pain of bilateral knee joints 6506303381 48380 M25.561 pt is followed by Dr. 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 [id number] MD Marcy Moseley 14 IM [address] [facility] [place] [address] 09/21/2021 13:32:34 09/27/2021 13:01:49 Pre-surgery evaluation 845923683 Z01.[address] Gray Prediabetes 868754574 R7 3.03 Screening for malignant neoplasm of colon 788525527 Z12.11 cologuard was negative on 11-23-2020 Under care of orthopedic surgeon 013915898 Z76.[address] Gray Ex-smoker 8915501 Z87.89 1 since 2020 Abstinent alcoholic 3009 14159 F10.21 since 2020....PT L! Morbid obesity 097061135 E66.01 Vitamin D deficiency 347 46942 E55.9 Congestive heart failure 99247605 I50.9 Pain of bi lateral knee joints 0570091311 74067 M25.561 pt is followed by Dr. Gray [id number] MD Marcy Moseley 14 IM [address] [facility] [place] [address] 06/22/2022 10:47:56 06/27/2022 13:57:39 Morbid obesity 724851285 E66.01 Type 2 luis angel betes mellitus 75996496 E11.9 Ex-smoker 6232748 Z87.89 1 since 2020 Vitamin D deficiency 347 67176 E55.9 Neuropathy 248008873 G62 .9 [id number] MD Marcy Moseley 14 IM [address] [facility] [place] [address] 08/24/2022 13:55:24 08/29/2022 11:36:17 Morbid obesity 204196295 E66.01 Ex-smoker 3628830 Z87.89 1 since 2020 Abstinent alcoholic 3009 53870 F10.21 since 2020....PT L! Type 2 luis angel betes mellitus 16110297 E11.9 Seasonal a llergic rhinitis 414263254 J30.2 Impacted c erumen in right ear 6426423953 122150 H61.21 [id number] MD Marcy Moseley 14 [address] [facility] [place] [address] 11/29/2022 10:41:27 12/08/2022 13:10:22 Type 2 diabetes mellitus 65714347 E11.9 Abstinent alcoholic 3009 43613 F10.21 since 2019....PT L! Urinary incontinence 165 133467 R32 Pt is requesting reusable bed pads Impaired mobility 210004 05 Z74.09 M19.90 M25.50 Pt is in need of a PMD within her home in order to carry out her ADLs. She is motivated to use the PMD, knows how to use, and will use it. It will allow her to meet her ADLs. She is not able to use a cane nor a walker nor a scooter due to her morbid obesity and severe bilateral osteoarthr itis. She has already had a PMD, uses it every day, and is in need of a new one. 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 Gray Impaired mobility 959921 05 Z74.09 M19.90 M25.50 pt is in need of a trapezius bar in order to help her to move while in bed Congestive heart failure 77084587 I50.9 Anemia 253980352 D64.9 Type 2 luis angel betes mellitus 96699801 E11.9 [id number] MD Marcy Moseley 14 IM [address] [facility] [place] [address] 09/07/2023 09:37:48 09/12/2023 12:49:38 Otitis externa 1221530 H60.93 Abrasion o f skin of left breast 5358459581 2642404 S20.112D Pt is to continue with topical products to skin at lateral aspect of left breast. [id number] MD Marcy Moseley 14 IM [address] [facility] [place] [address] 12/13/2023 14:44:28 12/20/2023 12:34:29 Administration of influenza vaccine 03861754 Z23 [id number] MD Marcy Moseley 14 IM [address] [facility] [place] [address] 01/02/2024 14:59:28 01/12/2024 11:03:25 Type 2 diabetes mellitus 10247144 E11.9 Superficia l injury of nose with infection 10725021 L08.9 Abstinent alcoholic 3009 60022 F10.21 since 2020....PT L! Ex-smoker 3688010 Z87.89 1 since 2019 Anemia 266987684 D64.9 Congestive heart failure 95722268 I50.9 Pain of bi lateral knee joints 2448220981 67981 M25.561 pt has been followed by Dr. Gray but wishes to see an orthopedis t in [place] who would consider operating Health Concerns Section Related Observation LastModified by Organization Detai ls LastModified Time None Recorded Concern Status LastModified by Organization Details LastModified Time None Recorded Advance Directives Directive Y: Melody Hooperivon pt. rafaela hawley Payers Encounter Date Sequence Insurance Name Policy Number Policy De La O Covered Member ID De La O Member ID Guarantor Name 04/24/2023 1 [place] Libby Barker Te [id number] Libby Te 04/24/2023 2 [employer] [place] ON [place] AFTER 2020 (MEDICAID REPLACEMENT - HMO) Libby Te [id number] Libby Te 07/26/2023 1 [place] Lib[place] Barker Te [id number] Libby Te 09/07/2023 1 [place] Barker Te [id number] Libby Te 12/13/2023 1 [place] Lib[place] Barker Te [id number] Libby Te 12/13/2023 2 [employer] [place]AC[place] - [place]MO) Libby Te [id number] Libby Te 01/02/2024 1 [place] Libby Barker Te [id number] Libby Te 01/02/2024 2 [employer] [place] ([place]AC[place] - [place]) Libby Te [id number] Libby Te Notes Date Note Type Note Provider Name and Address Organization Details Recorded Time 04/24/2023 text/html Pt is a 67 y/o F with a PMHx of COPD, HTN, CHF, RENÉ not on cpap, morbid obesity who presents today for routine f/u. CHF- Pt was hospitalized at [facility] 03/30/23 for CHF exacerbation. Has upcoming TTE scheduled later this week.- New medicines started on: Metoprolol 12.5mg bid, Spironolactone 25mg qd. Also taking Entresto, Jardiance 10mg qd, Furosemide 80mg qd, Potassium 20mEq Breast Lesion- Pt reports that there is a scab on her L breast. Has had symptoms like this in the past and was treated with abx. While in the hospital was treated with Miconazole topical but states it did not really help.- Reports that her symptoms have been going on for the past 3 months. Reports that it will sometimes drain pus and a little blood rarely. Denies any fevers Obesity- Pt reports that she has been trying to get bariatric surgery but has been denied 2/2 her age and weight- Has tried Ozempic but could not tolerate GI upset side effects. COPD- Using Advair inhaler BID and uses Albuterol twice a day.- Still having shortness of breath and BOYD. Sometimes hears coughing and wheezing. Denies any CP. Lev Hernández MD Attn: [address] [place], [address], [place] [facility] 04/26/2023 12:59:43 07/26/2023 text/html Per intake note. Lev dan MD Attn: [address] [place], [address], [place] [facility] 08/01/2023 14:23:14 09/07/2023 text/html Per intake note. Lev dan MD Attn: [address] [place], [address], [place] [facility] 09/11/2023 14:51:26 01/02/2024 text/html Pt presents with concerns as mentioned in the intake note. Lev Hernández MD Attn: [address] [place], [address], [place] [facility] 01/05/2024 12:42:21 OBGyn Episode No OBEpisode recorded.
--- OUTSIDE RECORDS SUMMARY | 2024-04-15 17:20 | XMS_ITS | CONTINUITY OF CARE DOCUMENT ---
Author Name ervin mueller Address Unknown Organization [facility] Address [address] [address] [place] [address] Phone [phone] Care Team Providers Care Inserter Name Role Phone Allen Chambers MD Unavailable [phone] ADAN HERNÁNDEZ MD Unavailable [phone] ADAN HERNÁNDEZ MD Unavailable PROBLEMS Condition Status Date Provider Notes CHF active Dax Granda RN Shortness of breath active Allen Chambers MD Pulmonary nodule GUY - PET 8mm 08/2018 active Drake Dietz CAD active Drake Dietz Obesity active Drake Dietz Mass of L inner thigh active Drake boogie Venous varicosity LLE active Drake boogie Venous insufficiency RLE active Drake smallwood Edema active Allen Chambers MD Leg pain, left active Allen Chambers MD Carotid artery stenosis, <50% b/l active Marianna Chambers MD Tobacco abuse active Allen Chambers MD Sleep apnea - on CPAP active Drake boogie Cellulitis, right foot active Allen Mathur COPD active Allen Chambers MD Dyslipidemia active Allen Chambers MD PVD S/P B/L JENNIFER stents 04/11 15, R SFA stent 05/2015; Iliac vein stents b/l 2021 active Lis Acuna HTN active Allen Chambers MD ENCOUNTERS Date Type Provider Location Encounter Diag nosis - In-person encounter Office Visit Allen Chambers MD [facility] Office - In-person encounter Office Visit Allen Chambers MD [facility] - In-person encounter Office Visit Allen Chambers MD [facility] - In-person encounter Office Visit Allen Chambers MD [facility] - In-person encounter Office Visit Allen Chambers MD [facility] - In-person encounter Office Visit Allen Chambers MD [facility] - In-person encounter Office Visit Allen Chambers MD [facility] - In-person encounter Office Visit Allen Chambers MD [facility] - In-person encounter Office Visit Allen Chambers MD [facility] Sleep apnea - on CPA P - In-person encounter Office Visit Allen Chambers MD [facility] PVD S/P B/L JENNIFER stents 03/2015, R SFA stent 05/2015; Iliac vein stents b/l 2022CAD - In-person encounter Office Visit Allen Chambers MD [facility] Venous insufficiency RLEVenous varicosity LLEPulmonary nodule GUY - PET 8mm 08/2018Mass of L inner thighObesity - In-person encounter Office Visit Allen Chambers MD [facility] Leg pain, leftEdema - In-person encounter Office Visit Allen Chambers MD [facility] Carotid artery stenosis, <50% b/l - In-person encounter Office Visit Allen Chambers MD [facility] HTNPVD S/P B/L JENNIFER stents 03/2015, R SFA stent 05/2015; Iliac vein stents b/l 2022DyslipidemiaCOPDC ellulitis, right footSleep apnea - on CPAPShortness of breathTobacco abuse VITAL SIGNS Date Observation Value Provider Body Mass Index (Ratio) 61.99 kg/m2 Jessica edge Puhse blood pressure, diastolic 62 mm[Hg] Br lucia Mendez blood pressure, systolic 102 mm[Hg] Rosa Mariadaren Mendez blood pressure, cuff size regular Br lucia Mendez pulse rate 94 /min Keely Reilly s oxygen saturation, oximetry 96 % Keely Mendez weight E&M 350 [lb_av] Keely Reilly s height E&M 63 [in_i] Keely Reilly s blood pressure, diastolic 68 mm[Hg] Li nkLogic blood pressure, systolic 116 mm[Hg] Ana Laura kLogic Body Mass Index (Ratio) 63.76 kg/m2 Jose kareen Onealsivan weight E&M 360 [lb_av] Arely Sahil blood pressure, diastolic 68 mm[Hg] Arabella lerie Sahil blood pressure, systolic 116 mm[Hg] Marii andrea Sahil respiratory rate E&M 16 /min Arely Sahil pulse rate 89 /min Arely Sahil oxygen saturation, oximetry 96 % Aerly Sahil height E&M 63 [in_i] Arely Ashil Body Mass Index (Ratio) 62.35 kg/m2 Job Benitez blood pressure, cuff size large Ja rret blood pressure, diastolic 69 mm[Hg] Ja rret blood pressure, systolic 101 mm[Hg] Jar ret pulse rate 91 /min Yo respiratory rate E&M 12 /min Yo oxygen saturation, oximetry 98 % Yo weight E&M 352 [lb_av] Yo y height E&M 63 [in_i] Yo rey y Body Mass Index (Ratio) 56.68 kg/m2 Justa apodaca Kalpana blood pressure, cuff size large Jie nieto Bruce blood pressure, diastolic 78 mm[Hg] Jie nieto Bruce blood pressure, systolic 146 mm[Hg] Pio helle Thorpe oxygen saturation, oximetry 98 % Renae Bruce respiratory rate E&M 18 /min Fanny Bruce pulse rate 103 /min Renae mathur weight E&M 320 [lb_av] Renae mathur height E&M 63 [in_i] Renae mathur Body Mass Index (Ratio) 58.27 kg/m2 Justa apodaca Kalpana blood pressure, cuff size large Jie nieto Bruce blood pressure, diastolic 90 mm[Hg] Jie nieto Bruce blood pressure, systolic 140 mm[Hg] Pio helle Bruce oxygen saturation, oximetry 94 % Renae Bruce respiratory rate E&M 16 /min Fanny Bruce pulse rate 72 /min Renae mathur weight E&M 329 [lb_av] Renae Shah d height E&M 63 [in_i] Renae mathur Body Mass Index (Ratio) 60.58 kg/m2 Justa apodaca Kalpana blood pressure, cuff size regular Zev isjyothi Ault blood pressure, diastolic 70 mm[Hg] Zev isty Deneen blood pressure, systolic 120 mm[Hg] Wendy Sanford pulse rate 96 /min Edita Sanford oxygen saturation, oximetry 97 % Edita Sanford respiratory rate E&M 18 /min Edita Sanford weight E&M 342 [lb_av] Edita Sanford blood pressure, resting No Yobani roe height E&M 63 [in_i] Edita Sanford Body Mass Index (Ratio) 63.41 kg/m2 Justa apodaca Kalpana blood pressure, cuff size regular Cy celinalorraine Wil blood pressure, diastolic 80 mm[Hg] Cy celinalorraine Wil blood pressure, systolic 134 mm[Hg] Jonna wilson De Al Torre pulse rate 81 /min Cyndie Vicentebel l oxygen saturation, oximetry 95 % Cyndie De La Torre respiratory rate E&M 20 /min Cyndie De La Torre weight E&M 358 [lb_av] Cyndie Campbel l height E&M 63 [in_i] Cyndie Campbel l Body Mass Index (Ratio) 55.79 kg/m2 Saw fulton J Luis weight E&M 315 [lb_av] [employer] height E&M 63 [in_i] [employer] Body Mass Index (Ratio) 56.68 kg/m2 Saw kirstin J Luis blood pressure, diastolic, left arm 80 mm [Hg] [facility] blood pressure, systolic, left arm 127 mm [Hg] [facility] blood pressure, diastolic, right arm 87 m m[Hg] [facility] blood pressure, systolic, right arm 135 m m[Hg] [facility] respiratory rate E&M 16 /min [facility] pulse rate 102 /min [facility] blood pressure, diastolic 87 mm[Hg] [facility] blood pressure, systolic 135 mm[Hg] Ton [facility] oxygen saturation, oximetry 96 % [facility] weight E&M 320 [lb_av] [facility] height E&M 63 [in_i] [facility] Body Mass Index (Ratio) 56.33 kg/m2 Saw Dietz blood pressure, diastolic, right arm 80 m m[Hg] Cyndie De La Torre blood pressure, systolic, right arm 140 m m[Hg] Cyndiekatie De La Torre blood pressure, cuff size regular Cy tristin De La Torre blood pressure, diastolic 78 mm[Hg] Cy ntlorraine De La Torre blood pressure, systolic 134 mm[Hg] Jonna katie De La Torre respiratory rate E&M 20 /min Cyndiekatie De La Torre oxygen saturation, oximetry 95 % Cyndiekatie De La Torre pulse rate 100 /min Cyndie Vicentebel l weight E&M 318 [lb_av] Cyndie Campbel l height E&M 63 [in_i] Cyndie Campbel l Body Mass Index (Ratio) 56.68 kg/m2 Saw Dietz blood pressure, cuff size regular Cy tristin De La Torre blood pressure, diastolic 68 mm[Hg] Cy ntanya De La Torre blood pressure, systolic 130 mm[Hg] Jonna katie [place] La Torre oxygen saturation, oximetry 96 % Cyndiekatie De La Torre respiratory rate E&M 22 /min Cyndie De La Torre pulse rate 85 /min Cyndie Campbel l weight E&M 320 [lb_av] Cyndie Campbel l height E&M 63 [in_i] Cyndie Campbel l Body Mass Index (Ratio) 44.88 kg/m2 Saw Dietz blood pressure, resting Yes Allen Chambers MD blood pressure, diastolic 83 mm[Hg] Ananda Jj blood pressure, systolic 124 mm[Hg] Rosi Jj oxygen saturation, oximetry 96 % Fabiola Jj respiratory rate E&M 20 /min Marcelo Jj pulse rate 96 /min Fabiola lynch weight E&M 253.4 [lb_av] Fabiola basurto height E&M 63 [in_i] Fabiola Zamora nson blood pressure, diastolic 80 mm[Hg] Aakash weems Alejandro blood pressure, systolic 150 mm[Hg] Heidy ri Alejandro pulse rate 94 /min Humera Víctor higginser oxygen saturation, oximetry 96 % Humera Alejandro respiratory rate E&M 16 /min Humera G víctor Body Mass Index (Ratio) 45.70 kg/m2 Corrigan i Alejandro weight E&M 258 [lb_av] Humera Víctor lder height E&M 63 [in_i] Humera íVctor higginser ALLERGIES No Known Drug Allergies REASON FOR REFERRAL Date Service [Description: Pulmon ology] RESULTS Date Observation Value Provider Reference Range Interpretation Location 0 pro brain natriuretic peptide 421 pg/mL LinkLogic 0-301 High 0 prothrombin time (patient) 10.4 s [facility] 9.1-12.0 0 international normalized ratio (INR) 1.0 [facility] 0.8-1.2 0 HDL cholesterol, serum 53 mg/dL [facility] >39 0 triglyceride, serum, random 86 mg/dL [facility] 0-149 0 cholesterol, serum 143 mg/dL [facility] 522-288 1326/09/1 0 calcium, serum 9.7 mg/dL [facility] 8.7-10.3 0 carbon dioxide, venous blood 28 mmol/L [facility] 20-29 0 chloride, serum 102 mmol/L [facility] 96-106 0 potassium, serum 5.6 mmol/L [facility] 3.5-5.2 High 0 sodium, serum 143 mmol/L [facility] 438-470 6000/09/1 0 urea nitrogen/creatini ne ratio, serum 23 [facility] 12-28 0 eGFR if 80 mL/min/{1 .73_m2} [facility] >59 0 eGFR if not 70 mL/min/{1 .73_m2} [facility] >59 0 creatinine, serum 0.87 mg/dL [facility] 0.57-1.00 0 urea nitrogen, blood 20 mg/dL [facility] 8-27 0 blood glucose, random 113 mg/dL [facility] 65-99 High 0 basophil count, absolute 0.0 x10E3/uL [facility] 0.0-0.2 0 Eosinophil Absolute Count 0.2 X10E3/UL [facility] 0.0-0.4 0 monocyte count, blood, automated 0.8 X10E3/UL [facility] 0.1-0.9 0 lymphocyte count, blood, automated 2.7 X10E3/UL [facility] 0.7-3.1 0 Absolute Neutrophils 5.6 X10E3/UL [facility] 1.4-7.0 0 basophils as percent of blood leukocytes 0 % [facility]Logic Not Estab. 0 eosinophils as percent of blood leukocytes 2 % [facility] Not Estab. 0 monocytes as percent of blood leukocytes 8 % [facility] Not Estab. 0 lymphocytes as percent of blood leukocytes 29 % [facility] Not Estab. 0 neutrophils as percent of blood leukocytes 61 % [facility] Not Estab. 0 platelet count 319 X10E3/UL [facility] 329-648 0258/09/1 0 red blood cell distribution width 13.2 % [facility] 11.7-15.4 0 mean corpuscular hemoglobin concentration, RBC 32.6 G/DL [facility] 31.5-35.7 0 mean corpuscular hemoglobin, RBC 29.7 pg [facility] 26.6-33.0 0 mean corpuscular volume, RBC 91 fL [facility] 79-97 0 hematocrit, blood 38.0 % [facility] 34.0-46.6 0 hemoglobin, blood 12.4 g/dL [facility] 11.1-15.9 0 erythrocyte (RBC) count 4.18 X10E6/UL [facility] 3.77-5.28 0 leukocyte count, blood 9.3 X10E3/UL [facility] 3.4-10.8 1 LDL cholesterol, serum 95 mg/dL Drake Lozanoberg 1 pro brain natriuretic peptide 274 pg/mL LinkLog[facility] 0-301 1 prothrombin time (patient) 10.7 s [facility] 9.1-12.0 1 international normalized ratio (INR) 1.0 [facility] 0.8-1.2 1 lipoprotein, beta, serum, point, quantitative, calculated 95 mg/dL [facility] 0-99 1 very low density lipoproteins 26 mg/dL [facility] 5-40 1 HDL cholesterol, serum 45 mg/dL [facility] >39 1 triglyceride, serum, random 128 mg/dL [facility] 0-149 1 cholesterol, serum 166 mg/dL [facility] 014-195 9727/10/3 1 calcium, serum 9.5 mg/dL [facility] 8.7-10.3 1 carbon dioxide, venous blood 22 mmol/L [facility] 20-29 1 chloride, serum 101 mmol/L [facility] 96-106 1 potassium, serum 4.8 mmol/L [facility] 3.5-5.2 1 sodium, serum 140 mmol/L [facility] 868-421 0995/10/3 1 urea nitrogen/creatini ne ratio, serum 21 [facility] 12-28 1 eGFR if 107 mL/min/{1 .73_m2} LinkLogic >59 1 eGFR if not 93 mL/min/{1 .73_m2} Link[facility]ic >59 1 creatinine, serum 0.67 mg/dL [facility] 0.57-1.00 1 urea nitrogen, blood 14 mg/dL [facility]ic 8-27 1 blood glucose, random 101 mg/dL [facility] 65-99 High 1 basophil count, absolute 0.0 x10E3/uL [facility] 0.0-0.2 1 Eosinophil Absolute Count 0.1 X10E3/UL [facility]Logic 0.0-0.4 1 monocyte count, blood, automated 0.7 X10E3/UL [facility]Logic 0.1-0.9 1 lymphocyte count, blood, automated 1.8 X10E3/UL [facility] 0.7-3.1 1 Absolute Neutrophils 5.3 X10E3/UL [facility]ic 1.4-7.0 1 basophils as percent of blood leukocytes 0 % LinkLogic Not Estab. 1 eosinophils as percent of blood leukocytes 1 % [facility]Logic Not Estab. 1 monocytes as percent of blood leukocytes 8 % LinkLogic Not Estab. 1 lymphocytes as percent of blood leukocytes 23 % [facility]Logic Not Estab. 1 neutrophils as percent of blood leukocytes 68 % LinkLogic Not Estab. 1 platelet count 303 X10E3/UL LinkLogic 908-312 5794/10/3 1 red blood cell distribution width 16.3 % [facility]ic 12.3-15.4 High 1 mean corpuscular hemoglobin concentration, RBC 33.8 G/DL [facility] 31.5-35.7 1 mean corpuscular hemoglobin, RBC 31.5 pg [facility]ic 26.6-33.0 1 mean corpuscular volume, RBC 93 fL LinkLogic 79-97 1 hematocrit, blood 39.6 % [facility]ic 34.0-46.6 1 hemoglobin, blood 13.4 g/dL [facility]Logic 11.1-15.9 1 erythrocyte (RBC) count 4.26 X10E6/UL LinkLogic 3.77-5.28 1 leukocyte count, blood 7.9 X10E3/UL LinkLogic 3.4-10.8 4 eGFR if 102 mL/min/{1 .73_m2} LinkLogic >59 4 eGFR if not 89 mL/min/{1 .73_m2} LinkLogic >59 4 creatinine, serum 0.72 mg/dL LinkLogic 0.57-1.00 HISTORY OF MEDICATION USE Medication Status Instructions Dates Provider Indications Com ladonna Entresto 49-51 mg tablet active Take 1 tablet by mouth twice daily 07/28 Humera Allen Jardiance 10 mg tablet active Take 1 tablet by mouth once daily 03/21 [facility] furosemide 80 mg tablet active Take 1 tablet by mouth once daily 03/21 [facility]ist atorvastatin 40 mg tablet active Take 1 tablet by mouth once daily 08/19 Kamilah Muñoz Jardiance 10 mg tablet completed Take 1 tablet by mouth once a day 03/26 - 03/21 Rneae Bruce Entresto 49-51 mg tablet completed Take 1 tablet by mouth twice a day 02/22 - 04/26 Allen Chambers MD potassium chloride 10 mEq capsule, extended release active Take 4 capsule by mouth once a day 1 po BID WITH YOUR LASIX EVERY DAY 11/09 Arelyandrea Baxter #30, 30 days supply, Prescribed by ADAN HERNÁNDEZ, Filled 06/09/2020 acetazolamide 250 mg tablet active TAKE 1 TABLET BY MOUTH ONCE DAILY Edita Brothers furosemide 80 mg tablet completed TAKE 1 TABLET BY MOUTH ONCE A DAY - 03/21 Renae Bruce albuterol sulfate 1.25 mg/3 mL solution for nebulization active USE 1 VIAL IN NEBULIZER 4 TIMES DAILY NEEDED FOR 30 DAYS Edita Brothers potassium chloride 10 mEq capsule, extended release completed Take 1 capsule by mouth twice a day 05/15 - 11/09 [facility]ita Brothers #30, 30 days supply, Prescribed by ADAN HERNÁNDEZ, Filled 06/09/2020 albuterol sulfate 90 mcg/actuation HFA aerosol inhaler active 1 puff as needed 05/21 Edita Brothers fluoxetine 10 mg tablet active 1 tablet once a day 05/21 Edita Brothers famotidine 20 mg tablet active 1 tablet once a day 05/21 Edita rBothers tramadol 50 mg tablet active 1 tablet every six to eight hours as needed 05/21 [facility]ita Brothers TRAZODONE HCL 50 MG TABS active Take 1 tablet every night 05/21 Edita Brothers cyclobenzaprine 10 mg tablet active Take 1 tablet twice a day 05/21 [facility] Brothers Mucinex 600 mg tablet extended release 12hr completed 05/21 - 09/19 Arely Baxter lisinopril 10 mg tablet completed 1 tablet once a day 05/21 - 11/09 [facility] Brothers atorvastatin 40 mg tablet completed Take 1 tablet by mouth once a day - 08/19 Renae Bruce ZITHROMAX PACKET completed Take as directed - 03/20 Allen Chambers MD bupropion HCl 150 mg tablet sustained-release 12 hr completed Take 1 tablet once a day 06/25 - 11/09 Cyndie De La Torre PRAVASTATIN SODIUM 40 MG ORAL TABLET completed Take 1 tablet once aday 06/25 - 03/20 Allen Chambers MD TRAMADOL HCL 50 MG ORAL TABLET completed Take 1 tablet once a day 06/25 - 03/20 Delmis KARIMI OMEPRAZOLE 20 MG ORAL TABLET DELAYED RELEASE completed Take 1 tablet once a day 06/25 - 05/21 Drake Dietz loratadine 10 mg tablet active Take 1 tablet once a day 06/25 Cyndie De La Torre hydroxyzine HCl 25 mg tablet active Take 1 tablet three times a day 06/25 Edita Brothers NORCO TABLET completed as needed for pain - Cyndie De La Torre VITAMIN B12 TABLET completed take one pill a day - Cyndie De La Torre aspirin 81 mg tablet,delayed release (DR/EC) completed Take 1 once a day - 11/09 Humera Allen Plavix 75 mg tablet active Take 1 once a day Humera Allen amlodipine 10 mg tablet active 1 tablet once a day Edita Brothers HYDROCHLOROTHIAZIDE 25 MG ORAL TABLET completed take one pill a day - 06/22 Allen Chambers MD SINGULAIR 10 MG ORAL TABLET completed take one pill a day - 05/21 Drake Dietz oxybutynin chloride 5 mg tablet active Take 1 twice a day Edita Brothers RANITIDINE HCL 150 MG ORAL TABLET completed take one pill a day - 03/20 Delmis Wilson SPIRIVA HANDIHALER CAPSULE completed once a day - 06/25 Cyndie De La Torre Advair Diskus 250-50 mcg/dose blister with device active once a day Humera Allen SOCIAL HISTORY Date Observation Value Provider alcohol use, average drinks per day social Allen Chambers MD alcohol use yes Allen Chambers MD smoking, year quit 2019 Allen kwok MD number of years as a smoker 55 a Allen Chambers MD smoking, date started 1965 Allen Chambers MD smoking history, tot al pack/year 53 Allen Chambers MD smoking history, tot al pack/day 1 Allen Chambers MD cigarette use yes Allen Chambers MD smoking status Former smoker Allen Chambers MD alcohol use, average drinks per day social Romel Ni alcohol use yes Romel Renae h smoking, year quit 2020 Romel alvarado number of years as a smoker 53 a Romel Jmsivan smoking, date started 1965 Romel Ni smoking history, tot al pack/year 53 Romel Ni smoking history, tot al pack/day 1 Romel Ni cigarette use yes Romel Lopez ch smoking status Former smoker Romel Borregocarolyn finnegan social history E&M S moking History: Jordana judd is a former smoker. Connor Benitez smoking status Former smoker Connor tobin smoking history, tot al pack/year 53 Carl Major RN social history E&M S moking History: Jordana judd is a former smoker. Lis Acuna social history reviewed E&M revi ewed - no changes required Lis Acuna smoking, year quit 2019 Renae Bruce number of years as a smoker 53 a Renae Bruce smoking, date started 1965 Ricky Conti smoking history, tot al pack/year 57 Renae Bruce smoking history, tot al pack/day 1 Renae Bruce cigarette use yes Renae Murguia nd smoking status Former smoker Renae Vasquez manriquez smoking history, tot al pack/year 57 Dax Granda RN social history reviewed E&M revi ewed - no changes required Lis Acuna social history E&M S moking History: Jordana judd is a former smoker. Lis Acuna social history reviewed E&M revi ewed - no changes required Lis Acuna smoking, year quit 2020 Renae Bruce smoking history, tot al pack/day 1 Renae Bruce cigarette use yes Renae Murguia konstantin smoking status Former smoker Renae manriquez social history E&M S moking History: P binta currently smokes every day. P binta has been counseled to quit. Allen Chambers MD social history reviewed E&M revi ewed - no changes required Allen Chambers MD smoking/tobacco cess ation, patient education and counseling yes Edita Sanfordby number of years as a smoker 55 a Edita Brothers smoking, date started 1965 [facility] Brothers smoking history, tot al pack/year ~ 30 - 50 Edita Brothers smoking history, tot al pack/day 0.5 - 1 Edita Sanfordby cigarette use yes Edita Brothers smoking status Current every day smoker Amadeo Brothers number of grandchildren Allen Acuna social history reviewed E&M revi ewed - no changes required Lis Acuna smoking/tobacco cess ation, patient education and counseling yes Cyndie De La Torre number of years as a smoker 53 a Cyndie De La Torre smoking, date started 1965 Lisbeth De La Torre smoking history, tot al pack/year ~ 30 - 50 Cyndie De La Torre smoking history, tot al pack/day 0.5 - 1 Cyndie De La Torre cigarette use yes Cyndie patiño smoking status Current every day smoker Monserrat De La Torre smoking history, tot al pack/year ~ 30 - 50 Drake Dietz social history reviewed E&M revi ewed - no changes required Drake [facility] smoking/tobacco cess ation, patient education and counseling yes Drake [facility] number of years as a smoker 53 a Drake [facility], date [facility], [facility] pack/[facility] 0.5 - 1 Drake [facility] cigarette use yes Drake [facility] smoking status Current every day smoker A evelia [facility] social history reviewed E&M revi ewed - no changes required [facility] smoking/tobacco cess ation, patient education and counseling yes [facility] number of years as a smoker 54 a [facility] smoking, date started 1966 [facility] smoking history, tot al pack/day 1 [facility] cigarette use yes [facility] smoking status Current every day smoker [facility] number of years as a smoker 53 a [facility] social history reviewed E&M revi ewed - no changes required [facility] smoking/tobacco cess ation, patient education and counseling yes Cyndie De La Torre smoking, date started 1966 [facility] smoking history, tot al pack/day 1 Cyndie De La Torre cigarette use yes Cyndie paitño smoking status Current every day smoker Monserrat De La Torre social history reviewed E&M revi ewed - no changes required [facility] alcohol use, average drinks per day social Cyndie De La Torre smoking/tobacco cess ation, patient education and counseling yes Cyndie De La Torre alcohol use yes Cyndie abdul smoking history, tot al pack/day 1 Allen Chambers MD cigarette use yes Cyndie patiño smoking status Current every day smoker Monserrat De La Torre social history reviewed E&M revi ewed - no changes required Allen Chambers MD alcohol use, average drinks per day social Fabiola Jj smoking/tobacco cess ation, patient education and counseling yes Fabiola Jj alcohol use yes Fabiola lynch smoking, date started 48 Kt Jj smoking history, tot al pack/day 1ppd Fabiola Jj cigarette use yes Fabiola basurto smoking status Current every day smoker Nino Jj smoking/tobacco cess ation, patient education and counseling yes Allen Chambers MD social history E&M Smoking Histo ry: P atient currently smokes every day. P atient has been counseled to quit. Allen Chambers MD social history reviewed E&M revi ewed - no changes required Allen Chambers MD alcohol use, average drinks per day social Humera Allen alcohol use yes Humera quinones smoking, date started 48 Humera Allen smoking history, tot al pack/day 1ppd Humera Allen cigarette use yes Humera mendez smoking status Current every day smoker Amadeo ohdaren Allen FUNCTIONAL STATUS Date Observation Value Provider HRA, CV Assess/Plan, Angina (inactive) Management Plan continue current therapy Allen Chambers MD HRA, CV Assess/Plan, Angina (inactive) Management Plan continue current therapy Connor Benitez HRA, CV Assess/Plan, Angina (inactive) Management Plan continue current therapy Lis Acuna HRA, CV Assess/Plan, Angina (inactive) Management Plan continue current therapy Lis Acuna HRA, CV Assess/Plan, Angina (inactive) Management Plan continue current therapy Lis Acuna HRA, CV Assess/Plan, Angina (inactive) Management Plan continue current therapy Allen Chambers MD HRA, CV Assess/Plan, Angina (inactive) Management Plan continue current therapy Lis Acuna HRA, CV Assess/Plan, Angina (inactive) Management Plan continue current therapy Allen Chambers MD HRA, CV Assess/Plan, Angina (inactive) Management Plan continue current therapy Drake Dietz FAMILY HISTORY Family Member Condition Father Family History of Hy pertension: Father Family History of CV A or Stroke: INSURANCE PROVIDERS Payer name Policy type / Coverage type Ian red democrat ID [place] MEDIC[place] Medicare [id number] [facility] Medicaid 3 [id number] ADVANCE DIRECTIVES Name Date DISCUSSED - NO DECISION [employer] Date Name Performer [id number],C,quit Connor Juan eatty [id number],BConnor Beatreji y [id number],C, N o chest pain H er updated medication list for this problem includes: Plavix 75 Mg Tablet (Clopidogrel) ..... Take 1 once a day Amlodipine 10 Mg Tablet (Amlodipine) ..... 1 tablet once a day Lis Acuna [id number],C, T he Patient was reencouraged to stop smoking. Lis Acuna [id number],C, H er updated medication list for this problem includes: Atorvastatin 40 Mg Tablet (Atorvastatin) ..... Take 1 tablet by mouth once a day Lis Acuna [id number],C, P rior BP: 146/78 (04/26/2021) Labs Reviewed: C reat: 0.87 (10/31/2019) C hol: 143 (10/31/2019) HDL: 53 (10/31/2019) Her updated medication list for this problem includes: Furosemide 80 Mg Tablet (Furosemide) ..... Take 1 tablet by mouth once a day Amlodipine 10 Mg Tablet (Amlodipine) ..... 1 tablet once a day Acetazolamide 250 Mg Tablet (Acetazolamide) ..... Take 1 tablet by mouth once daily Lis Acuna [id number],C,S /P successful b/l stenting of the iliac veins. She reports improvement, however there is still swelling. We will check to see if insurance will allow Venaseal of the left GSV. Lis Acuna [id number],C,S /P successful b/l stenting of the iliac veins. She reports improvement, however there is still swelling. We will check to see if insurance will allow Venaseal of the left GSV. Lis Acuna [id number],S, T he Patient was reencouraged to stop smoking. iLs Acuna [id number],S, T he patient is using CPAP on a regular basis. The patient has been benefiting from therapy and should continue use. Lis Acuna [id number],C, H er updated medication list for this problem includes: Atorvastatin 40 Mg Tablet (Atorvastatin) ..... Take 1 tablet by mouth once a day Lis Acuna [id number],C, B P today: 146/78 P rior BP: 140/90 (12/23/2020) Labs Reviewed: C reat: 0.87 (10/31/2019) C hol: 143 (10/31/2019) HDL: 53 (10/31/2019) Her updated medication list for this problem includes: Furosemide 80 Mg Tablet (Furosemide) ..... Take 1 tablet by mouth once a day Amlodipine 10 Mg Tablet (Amlodipine) ..... 1 tablet once a day Acetazolamide 250 Mg Tablet (Acetazolamide) ..... Take 1 tablet by mouth once daily Lis Acuna [id number],C, C /O increasing leg swelling. Same level of SOB. Had moderate iliac vein compression noted in 2019. We will obtain venography with IVUS to see if compression is increased and we can intervene. Will increase Entresto to 49-51 mg BID. H er updated medication list for this problem includes: Entresto 49-51 Mg Tablet (Sacubitril-valsartan) ..... Take 1 tablet by mouth twice a day Furosemide 80 Mg Tablet (Furosemide) ..... Take 1 tablet by mouth once a day Amlodipine 10 Mg Tablet (Amlodipine) ..... 1 tablet once a day Acetazolamide 250 Mg Tablet (Acetazolamide) ..... Take 1 tablet by mouth once daily Lis Mckenzieronak [id number],C, N o chest pain H er updated medication list for this problem includes: Plavix 75 Mg Tablet (Clopidogrel) ..... Take 1 once a day Amlodipine 10 Mg Tablet (Amlodipine) ..... 1 tablet once a day [facility] [id number],C, C /O increasing leg swelling. Same level of SOB. Had moderate iliac vein compression noted in 2019. We will obtain venography with IVUS to see if compression is increased and we can intervene. Will increase Entresto to 49-51 mg BID. H er updated medication list for this problem includes: Entresto 49-51 Mg Tablet (Sacubitril-valsartan) ..... Take 1 tablet by mouth twice a day Furosemide 80 Mg Tablet (Furosemide) ..... Take 1 tablet by mouth once a day Plavix 75 Mg Tablet (Clopidogrel) ..... Take 1 once a day Amlodipine 10 Mg Tablet (Amlodipine) ..... 1 tablet once a day Acetazolamide 250 Mg Tablet (Acetazolamide) ..... Take 1 tablet by mouth once daily Lis Mckenzieakana [id number],C, C /O increasing leg swelling. Same level of SOB. Had moderate iliac vein compression noted in 2019. We will obtain venography with IVUS to see if compression is increased and we can intervene. Will increase Entresto to 49-51 mg BID. Lis Acuna [id number],S, Lis ghotra [id number],S, T he Patient was reencouraged to stop smoking. Lis Mckenzieakana [id number],C, H er updated medication list for this problem includes: Atorvastatin 40 Mg Tablet (Atorvastatin) ..... Take 1 tablet by mouth once a day Lis Mckenzieakana [id number],C, B P today: 140/90 P rior BP: 120/70 (11/09/2020) Labs Reviewed: C reat: 0.87 (10/31/2019) C hol: 143 (10/31/2019) HDL: 53 (10/31/2019) Her updated medication list for this problem includes: Furosemide 80 Mg Tablet (Furosemide) ..... Take 1 tablet by mouth once a day Amlodipine 10 Mg Tablet (Amlodipine) ..... 1 tablet once a day Acetazolamide 250 Mg Tablet (Acetazolamide) ..... Take 1 tablet by mouth once daily Lis Kalpana [id number],C, Will check with insurance if she can get Venaseal since her leg swelling and heaviness bothers her. Lis Kalpana [id number],C,T he pt could not participate in the STEP HFpEF due to inability to walk 6 minutes. If she can walk in the future, will rescreen her. Will start her on Entresto 24-26 mg BID. Will check with insurance if she can get Venaseal since her leg swelling and heaviness bothers her. Lis Kalpana [id number],C,W eight loss advised. The pt could not participate in the STEP HFpEF due to inability to walk 6 minutes. If she can walk in the future, will rescreen her. Lis Mckenzieronak [id number],C,T He pt could not participate in the STEP HFpEF due to inability to walk 6 minutes. If she can walk in the future, will rescreen her. Will start her on Entresto 24-26 mg BID. Will check with insurance if she can get Venaseal since her leg swelling and heaviness bothers her. H er updated medication list for this problem includes: Plavix 75 Mg Tablet (Clopidogrel) ..... Take 1 once a day Amlodipine 10 Mg Tablet (Amlodipine) ..... 1 tablet once a day Lis Kalpana [id number],S, T he patient is using CPAP on a regular basis. The patient has been benefiting from therapy and should continue use. Allen Chambers MD [id number],S,T he Patient was reencouraged to stop smoking. Allen Chambers MD [id number],S, P t is interested in losing weight, bariatric surgery is recommended (She is cleared for surgery from cardiac perspective). Allen Chambers MD [id number],C, H er updated medication list for this problem includes: Atorvastatin 40 Mg Tablet (Atorvastatin) ..... Take 1 tablet by mouth once a day Allen Chambers MD [id number],C, B P today: 120/70 P rior BP: 134/80 (06/22/2020) Labs Reviewed: C reat: 0.87 (10/31/2019) C hol: 143 (10/31/2019) HDL: 53 (10/31/2019) The following medications were removed from the medication list: Lisinopril 10 Mg Tablet (Lisinopril) ..... 1 tablet once a day Aspirin 81 Mg Tablet,delayed Release (dr/ec) (Aspirin) ..... Take 1 once a day Her updated medication list for this problem includes: Furosemide 80 Mg Tablet (Furosemide) ..... Take 1 tablet by mouth once a day Amlodipine 10 Mg Tablet (Amlodipine) ..... 1 tablet once a day Acetazolamide 250 Mg Tablet (Acetazolamide) ..... 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 Allen Chambers MD [id number],C,T he pt had a recent admission to [facility] in 2020 due to CHF exacerbation (pro BNP higher than 6000). She was treated with diuretics, however she is retaining fluids again. She would like to enroll in STEP HFpEF DM study. Allen Chambers MD Cardiology: W ill check venous duplex US and arterial duplex Allen Chambers MD Cardiology: Jordana mendoza was admitted to [facility] in [place] for CHF exascerbation. Echo normal EF. Feeling better. Contiue current meds. H er updated medication list for this problem includes: Furosemide 80 Mg Tablet (Furosemide) ..... Take 1 tablet by mouth once daily Plavix 75 Mg Tablet (Clopidogrel) ..... Take 1 once a day Amlodipine 10 Mg Tablet (Amlodipine) ..... 1 tablet once a day Acetazolamide 250 Mg Tablet (Acetazolamide) ..... Take 1 tablet by mouth once daily Allen Chambers MD Cardiology: H er updated medication list for this problem includes: Furosemide 80 Mg Tablet (Furosemide) ..... Take 1 tablet by mouth once daily Amlodipine 10 Mg Tablet (Amlodipine) ..... 1 tablet once a day Acetazolamide 250 Mg Tablet (Acetazolamide) ..... Take 1 tablet by mouth once daily Allen Chambers MD Cardiology: H er updated medication list for this problem includes: Atorvastatin 40 Mg Tablet (Atorvastatin) ..... Take 1 tablet by mouth once daily Allen Chambers MD Cardiology:Discussio n of benefits for remote patient monitoring took place. Patient gives consent for remote monitoring of physiologic parameters including, but not limited to, weight, blood pressure, pulse oximetry, respiratory flow rate. BP today: 102/62 P rior BP: 116/68 (09/20/2023) Labs Reviewed: C reat: 0.87 (10/31/2019) C hol: 143 (10/31/2019) HDL: 53 (10/31/2019) LDL: 95 (12/20/2018) T (10/31/2019) Her updated medication list for this problem includes: Furosemide 80 Mg Tablet (Furosemide) ..... Take 1 tablet by mouth once daily Amlodipine 10 Mg Tablet (Amlodipine) ..... 1 tablet once a day Acetazolamide 250 Mg Tablet (Acetazolamide) ..... Take 1 tablet by mouth once daily Allen Chambers MD Cardiology: N o chest pain H er updated medication list for this problem includes: Plavix 75 Mg Tablet (Clopidogrel) ..... Take 1 once a day Amlodipine 10 Mg Tablet (Amlodipine) ..... 1 tablet once a day Allen Chambers MD Cardiology:We will o btain arterial/venous duplex since she did not have it done last year. Romel Borregozach Cardiology:Pt was ad mitted to [facility] in [place] for CHF exascerbation. Echo normal EF. Feeling better. Contiue current meds. H er updated medication list for this problem includes: Furosemide 80 Mg Tablet (Furosemide) ..... Take 1 tablet by mouth once daily Plavix 75 Mg Tablet (Clopidogrel) ..... Take 1 once a day Amlodipine 10 Mg Tablet (Amlodipine) ..... 1 tablet once a day Acetazolamide 250 Mg Tablet (Acetazolamide) ..... Take 1 tablet by mouth once daily Romel Raine Cardiology: H er updated medication list for this problem includes: Atorvastatin 40 Mg Tablet (Atorvastatin) ..... Take 1 tablet by mouth once daily This visit has been a part of the consistent, comprehensive, and ongoing management of the chronic medical condition(s) listed above for the patient. Romel Raine Cardiology: B P today: 116/68 P rior BP: 101/69 (09/21/2022) Her updated medication list for this problem includes: Furosemide 80 Mg Tablet (Furosemide) ..... Take 1 tablet by mouth once daily Amlodipine 10 Mg Tablet (Amlodipine) ..... 1 tablet once a day Acetazolamide 250 Mg Tablet (Acetazolamide) ..... Take 1 tablet by mouth once daily This visit has been a part of the consistent, comprehensive, and ongoing management of the chronic medical condition(s) listed above for the patient. Romel Ni Cardiology: Her updated medication list for this problem includes: Furosemide 80 Mg Tablet (Furosemide) ..... Take 1 tablet by mouth once daily Amlodipine 10 Mg Tablet (Amlodipine) ..... 1 tablet once a day Acetazolamide 250 Mg Tablet (Acetazolamide) ..... Take 1 tablet by mouth once daily Romel Ni Cardiology:andrey Benitez Cardiology Connor Benitez Telehealth: N o chest pain H er updated medication list for this problem includes: Plavix 75 Mg Tablet (Clopidogrel) ..... Take 1 once a day Amlodipine 10 Mg Tablet (Amlodipine) ..... 1 tablet once a day Lis Mckenzieronak Telehealth: T he Patient was reencouraged to stop smoking. Lis Acuna Telehealth: H er updated medication list for this problem includes: Atorvastatin 40 Mg Tablet (Atorvastatin) ..... Take 1 tablet by mouth once a day Lis Jacobsronak Telehealth: P rior BP: 146/78 (04/26/2021) Labs Reviewed: C reat: 0.87 (10/31/2019) C hol: 143 (10/31/2019) HDL: 53 (10/31/2019) Her updated medication list for this problem includes: Furosemide 80 Mg Tablet (Furosemide) ..... Take 1 tablet by mouth once a day Amlodipine 10 Mg Tablet (Amlodipine) ..... 1 tablet once a day Acetazolamide 250 Mg Tablet (Acetazolamide) ..... Take 1 tablet by mouth once daily Lis Mckenzieronak Telehealth:S/P succe ssful b/l stenting of the iliac veins. She reports improvement, however there is still swelling. We will check to see if insurance will allow Venaseal of the left GSV. Lis Mckenzieronak Telehealth:S/P succe ssful b/l stenting of the iliac veins. She reports improvement, however there is still swelling. We will check to see if insurance will allow Venaseal of the left GSV. Lis Acuna Cardiology: T he Patient was reencouraged to stop smoking. Lis Acuna Cardiology: T he patient is using CPAP on a regular basis. The patient has been benefiting from therapy and should continue use. Lis Acuna Cardiology: H er updated medication list for this problem includes: Atorvastatin 40 Mg Tablet (Atorvastatin) ..... Take 1 tablet by mouth once a day Lis Kalpana Cardiology: B P today: 146/78 P rior BP: 140/90 (12/23/2020) Labs Reviewed: C reat: 0.87 (10/31/2019) C hol: 143 (10/31/2019) HDL: 53 (10/31/2019) Her updated medication list for this problem includes: Furosemide 80 Mg Tablet (Furosemide) ..... Take 1 tablet by mouth once a day Amlodipine 10 Mg Tablet (Amlodipine) ..... 1 tablet once a day Acetazolamide 250 Mg Tablet (Acetazolamide) ..... Take 1 tablet by mouth once daily Lis Kalpana Cardiology: C /O increasing leg swelling. Same level of SOB. Had moderate iliac vein compression noted in 2019. We will obtain venography with IVUS to see if compression is increased and we can intervene. Will increase Entresto to 49-51 mg BID. H er updated medication list for this problem includes: Entresto 49-51 Mg Tablet (Sacubitril-valsartan) ..... Take 1 tablet by mouth twice a day Furosemide 80 Mg Tablet (Furosemide) ..... Take 1 tablet by mouth once a day Amlodipine 10 Mg Tablet (Amlodipine) ..... 1 tablet once a day Acetazolamide 250 Mg Tablet (Acetazolamide) ..... Take 1 tablet by mouth once daily Lis Kalpana Cardiology: N o chest pain H er updated medication list for this problem includes: Plavix 75 Mg Tablet (Clopidogrel) ..... Take 1 once a day Amlodipine 10 Mg Tablet (Amlodipine) ..... 1 tablet once a day Lis Acuna Cardiology: C /O increasing leg swelling. Same level of SOB. Had moderate iliac vein compression noted in 2019. We will obtain venography with IVUS to see if compression is increased and we can intervene. Will increase Entresto to 49-51 mg BID. H er updated medication list for this problem includes: Entresto 49-51 Mg Tablet (Sacubitril-valsartan) ..... Take 1 tablet by mouth twice a day Furosemide 80 Mg Tablet (Furosemide) ..... Take 1 tablet by mouth once a day Plavix 75 Mg Tablet (Clopidogrel) ..... Take 1 once a day Amlodipine 10 Mg Tablet (Amlodipine) ..... 1 tablet once a day Acetazolamide 250 Mg Tablet (Acetazolamide) ..... Take 1 tablet by mouth once daily Lis Kalpana Cardiology: C /O increasing leg swelling. Same level of SOB. Had moderate iliac vein compression noted in 2019. We will obtain venography with IVUS to see if compression is increased and we can intervene. Will increase Entresto to 49-51 mg BID. Lis Acuna Cardiology Lis Garcia eyer Cardiology: T he Patient was reencouraged to stop smoking. Lis Acuna Cardiology: H er updated medication list for this problem includes: Atorvastatin 40 Mg Tablet (Atorvastatin) ..... Take 1 tablet by mouth once a day Lis Acuna Cardiology: B P today: 140/90 P rior BP: 120/70 (11/09/2020) Labs Reviewed: C reat: 0.87 (10/31/2019) C hol: 143 (10/31/2019) HDL: 53 (10/31/2019) Her updated medication list for this problem includes: Furosemide 80 Mg Tablet (Furosemide) ..... Take 1 tablet by mouth once a day Amlodipine 10 Mg Tablet (Amlodipine) ..... 1 tablet once a day Acetazolamide 250 Mg Tablet (Acetazolamide) ..... Take 1 tablet by mouth once daily Lis Acuna Cardiology: Will debora ck with insurance if she can get Venaseal since her leg swelling and heaviness bothers her. Lis Acuna Cardiology:The pt co uld not participate in the STEP HFpEF due to inability to walk 6 minutes. If she can walk in the future, will rescreen her. Will start her on Entresto 24-26 mg BID. Will check with insurance if she can get Venaseal since her leg swelling and heaviness bothers her. Lis Acuna Cardiology:Weight lo ss advised. The pt could not participate in the STEP HFpEF due to inability to walk 6 minutes. If she can walk in the future, will rescreen her. Lis Kalpana Cardiology:THe pt co zorad not participate in the STEP HFpEF due to inability to walk 6 minutes. If she can walk in the future, will rescreen her. Will start her on Entresto 24-26 mg BID. Will check with insurance if she can get Venaseal since her leg swelling and heaviness bothers her. H er updated medication list for this problem includes: Plavix 75 Mg Tablet (Clopidogrel) ..... Take 1 once a day Amlodipine 10 Mg Tablet (Amlodipine) ..... 1 tablet once a day Lis Kalpana Cardiology: T he patient is using CPAP on a regular basis. The patient has been benefiting from therapy and should continue use. Allen Chambers MD Cardiology:The Patie nt was reencouraged to stop smoking. Allen Chambers MD Cardiology: P t is interested in losing weight, bariatric surgery is recommended (She is cleared for surgery from cardiac perspective). Allen Chambers MD Cardiology: H er updated medication list for this problem includes: Atorvastatin 40 Mg Tablet (Atorvastatin) ..... Take 1 tablet by mouth once a day Allen Chambers MD Cardiology: B P today: 120/70 P rior BP: 134/80 (06/22/2020) Labs Reviewed: C reat: 0.87 (10/31/2019) C hol: 143 (10/31/2019) HDL: 53 (10/31/2019) The following medications were removed from the medication list: Lisinopril 10 Mg Tablet (Lisinopril) ..... 1 tablet once a day Aspirin 81 Mg Tablet,delayed Release (dr/ec) (Aspirin) ..... Take 1 once a day & #13;Her updated medication list for this problem includes: Furosemide 80 Mg Tablet (Furosemide) ..... Take 1 tablet by mouth once a day Amlodipine 10 Mg Tablet (Amlodipine) ..... 1 tablet once a day Acetazolamide 250 Mg Tablet (Acetazolamide) ..... 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 Allen Chambers MD Cardiology:The pt karsten mathur a recent admission to [facility] in 2020 due to CHF exacerbation (pro BNP higher than 6000). She was treated with diuretics, however she is retaining fluids again. She would like to enroll in STEP HFpEF DM study. Allen Chambers MD Cardiology follow up :Her updated medication list for this problem includes: Atorvastatin Calcium 40 Mg Oral Tablet (Atorvastatin calcium) ..... Take 1 tablet by mouth once daily Lis Acuna Cardiology follow up :No chest pain. Her updated medication list for this problem includes: Lisinopril 10 Mg Oral Tablet (Lisinopril) ..... One tab. daily Aspirin 81 Mg Oral Tablet Delayed Release (Aspirin) ..... Take one pill a day Plavix 75 Mg Oral Tablet (Clopidogrel bisulfate) ..... Take one pill a day Amlodipine Besylate 5 Mg Oral Tablet (Amlodipine besylate) ..... One tab. daily Lis Acuna Cardiology follow up :Pt complains of continued swelling in the legs, particular in the left leg. Will schedule an echo and venous duplex. Lis Acuna Cardiology follow up Lis vargas Cardiology follow up :BP today: 134/80 P rior BP: 135/87 (03/20/2019) Her updated medication list for this problem includes: Lisinopril 10 Mg Oral Tablet (Lisinopril) ..... One tab. daily Aspirin 81 Mg Oral Tablet Delayed Release (Aspirin) ..... Take one pill a day Amlodipine Besylate 5 Mg Oral Tablet (Amlodipine besylate) ..... One tab. daily Lis Acuna Cardiology follow up : H er updated medication list for this problem includes: Atorvastatin Calcium 40 Mg Oral Tablet (Atorvastatin calcium) ..... Take 1 tablet by mouth once daily Lis Mckenzieronak Cardiology follow up :No chest pain. H er updated medication list for this problem includes: Lisinopril 10 Mg Oral Tablet (Lisinopril) ..... One tab. daily Aspirin 81 Mg Oral Tablet Delayed Release (Aspirin) ..... Take one pill a day Plavix 75 Mg Oral Tablet (Clopidogrel bisulfate) ..... Take one pill a day Amlodipine Besylate 5 Mg Oral Tablet (Amlodipine besylate) ..... One tab. daily Lis Mckenzieronak Cardiology follow up :Pt is interested in losing weight, bariatric surgery is recommended (She is cleared for surgery from cardiac perspective). Lis Mckenzieakana TeleHealth:AIF 01/09 19 showed patent iliac artery stents and mild PAD. [facility] TeleHealth:320 lbs -> 315 lbs Jose eduardo [facility] TeleHealth:The patie nt is using CPAP on a regular basis. The patient has been benefiting from therapy and should continue use. [facility] TeleHealth:Pt was no t able to get the MRI of her leg due to her inability to lay flat for the test. She does not feel a mass anymore in the lower ext. Will follow clinically. [facility] TeleHealth:Due for C T of the chest to f/u on her lung nodule soon. [facility] TeleHealth:PFT's [facility] minimal obstructive airway disease. [facility] TeleHealth:PFT's spike wed minimal obstructive airway disease. Still smoking. Encouraged her to stop smoking. [facility] TeleHealth:PFT's [facility] minimal obstructive airway disease. Still smoking. Encouraged her to stop smoking. [facility] TeleHealth:No chest pain. Her updated medication list for this problem includes: Lisinopril 10 Mg Oral Tablet (Lisinopril) ..... One tab. daily Aspirin 81 Mg Oral Tablet Delayed Release (Aspirin) ..... Take one pill a day Plavix 75 Mg Oral Tablet (Clopidogrel bisulfate) ..... Take one pill a day Amlodipine Besylate 5 Mg Oral Tablet (Amlodipine besylate) ..... One tab. daily [facility] Cardiology:Continues to have SOB. Extensive cardiac workup revealed the following: mild CAD, no pulmonary HTN, normal ejection fraction, normal proBNP. Cardiac source of her SOB is unlikely. PFT's are scheduled and she was advised to see a grain broker and market operator. [facility] Cardiology:Continues to have SOB. Extensive cardiac workup revealed the following: mild CAD (50% stenosis of the proximal LAD and 50% stenosis of the proximal RCA), no pulmonary HTN, normal ejection fraction, normal proBNP. Cardiac source of her SOB is unlikely. She denies chest pain. Her updated medication list for this problem includes: Aspirin 81 Mg Oral Tablet Delayed Release (Aspirin) ..... Take one pill a day Plavix 75 Mg Oral Tablet (Clopidogrel bisulfate) ..... Take one pill a day Amlodipine Besylate 10 Mg Oral Tablet (Amlodipine besylate) ..... Take one pill a day [facility] Cardiology:CHOL: 166 (12/20/2018) HDL: 45 (12/20/2018) LDL: 95 (12/20/2018) TRI (12/20/2018) The following medications were changed: Pravastatin Sodium 40 Mg Oral Tablet (Pravastatin sodium) ..... Take 1 tablet once aday Her updated medication list for this problem includes: Atorvastatin Calcium 40 Mg Oral Tablet (Atorvastatin calcium) ..... Take one tablet daily [facility] Cardiology:BP today: 135/87 P rior BP: 134/78 (12/19/2018) Her updated medication list for this problem includes: Amlodipine Besylate 10 Mg Oral Tablet (Amlodipine besylate) ..... Take one pill a day Hydrochlorothiazide 25 Mg Oral Tablet (Hydrochlorothiazide) ..... Take one pill a day [facility] Cardiology:AIF showe d patent iliac artery stents and no signficant PAD currently. [facility] Cardiology:Will reschedule her M RI. [facility] [facility]:She will need f/u CT of the chest for lung nodule in May 2019. [facility] Cardiology:She did n ot have significant iliac vein compression and we will treat her swelling with diuretics. [facility] [place] Cardiology:Continues to have SOB. Extensive cardiac workup revealed the following: mild CAD, no pulmonary HTN, normal ejection fraction, normal proBNP. Cardiac source of her SOB is unlikely. Recommending pulmonary consultation. She is scheduled for PFT's. [facility] Cardiology follow up :Her updated medication list for this problem includes: Pravastatin Sodium 40 Mg Oral Tablet (Pravastatin sodium) ..... Take 1 tablet once aday Orders: L IPID PANEL (7600) [facility] Cardiology follow up :BP today: 134/78 P rior BP: 130/68 (06/25/2018) Her updated medication list for this problem includes: Amlodipine Besylate 10 Mg Oral Tablet (Amlodipine besylate) ..... Take one pill a day Hydrochlorothiazide 25 Mg Oral Tablet (Hydrochlorothiazide) ..... Take one pill a day [facility] Cardiology follow up :Duplex was limited technically but did not show significant arterial disease. [facility] Cardiology follow up :Duplex shows < 50% stenosis of the ICAs bilaterally. [facility] Cardiology follow up :Per duplex: A unknown mass of mixed echogenicity was seen in the area of pain which extended from the left mid to distal inner thigh at approximately the same depth as the GSV. No vascularization was seen throughout the mass. As recommended by the radiologist, she is scheduled for MRI for further assessment. [facility] Cardiology follow up :Nodule was noted on CT and PET scan was performed as recommended which showed: 8 mm subpleural pulmonary nodule in the lateral left upper lobe is FDG negative. No other potential sites of malignancy identified. Per radiologist's recommendation, she is scheduled for f/u CT imaging to confirm stability in size. 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 [facility] Cardiology follow up :Echo showed normal EF. WENDIE's were limited but did not show significant PAD. Venous duplex showed insufficiency on the R and varicosities on the L. She also had findings of a nonvascular mass in the L leg which is being worked up by MRI of the leg. In the past, BNP was elevated to 232. Will proceed to venography w/IVUS. [facility] Cardiology follow up :Echo showed normal EF. CT of the chest showed coronary calcifications. She is still SOB and cannot walk short distances. In the past, BNP was elevated to 232. Will proceed to R/L heart cath and schedule PFT's. Will check proBNP. [facility] Cardiology follow up :Orders: C arotid Duplex Bilateral (CPT-93057) [facility] Cardiology follow up :BP today: 130/68 P rior BP: 124/83 (02/01/2016) Her updated medication list for this problem includes: Amlodipine Besylate 10 Mg Oral Tablet (Amlodipine besylate) ..... Take one pill a day Hydrochlorothiazide 25 Mg Oral Tablet (Hydrochlorothiazide) ..... Take one pill a day Orders: C omplete Echo (CPT-86840) [facility] Cardiology follow up :Advised to quit. The patient is between 55-77 years old and has smoked at least 30 pack years. The patient is either a current smoker or has quit within the past 15 years. T he patient is recommended to have low dose CT scan for lung cancer screening. Has been counseled regarding the importance of tobacco cessation and abstinence. Shared decision making during this office visit included discussion of the benefits and harms of screening, possible future recommendations of follow-up diagnostic testing, and total amount of radiation exposure. The patient was recommended to have annual low dose CT scan for lung cancer screening and is willing to undergo diagnosis and treatment. [facility] Cardiology follow up [facility] follow up :Orders: A rterial Duplex Bi-Lower EX (CPT-92119) [facility] Cardiology follow up :Orders: V enous Doppler Bilateral LE - Reflux (CPT-72568) [facility] Cardiology follow up :Orders: A rterial Duplex Bi-Lower EX (CPT-73337) V enous Doppler Bilateral LE - Reflux (CPT-61125) [facility] [place] Cardiology:<50 stenosis of ICA b ilaterally. Allen Chambers MD Cardiology Allen Chambers MD Cardiology:BP today: 124/83 P rior BP: 150/80 (12/07/2015) Her updated medication list for this problem includes: Aspirin 81 Mg Oral Tbec (Aspirin) ..... Take one pill a day Amlodipine Besylate 10 Mg Oral Tabs (Amlodipine besylate) ..... Take one pill a day Hydrochlorothiazide 25 Mg Oral Tabs (Hydrochlorothiazide) ..... Take one pill a day Allen Chambers MD Cardiology:I recommend to keep L DL below 70. Allen Chambers MD Cardiology:STRONGLY ENCOURAGED TO STOP SMOKING; SMOKING CESSATION TECHNIQUES DISCUSSED. Allen Chambers MD Cardiology:The pt states her sor e is healing. Allen Chambers MD Cardiology:WENDIE's wer e normal on the right and showed a mild abnormality on the left. Stents are patent. The pt states her sore is healing. Allen Chambers MD Cardiology New Patie nt:STRONGLY ENCOURAGED TO STOP SMOKING; SMOKING CESSATION TECHNIQUES DISCUSSED. Allen Chambers MD Cardiology New Patient:Compliant with treatment. Allen Chambers MD Cardiology New Patie nt:BP today: 150/80 Her updated medication list for this problem includes: Aspirin 81 Mg Oral Tbec (Aspirin) ..... Take one pill a day Amlodipine Besylate 10 Mg Oral Tabs (Amlodipine besylate) ..... Take one pill a day Hydrochlorothiazide 25 Mg Oral Tabs (Hydrochlorothiazide) ..... Take one pill a day Allen Chambers MD Cardiology New Patie nt:She has severe COPD. She states she had PFT's about 6 months ago. Allen Chambers MD Cardiology New Patie nt:Orders: V enous Doppler Bilateral LE - Standing (CPT-61173) A rterial Duplex Bi-Lower EX (CPT-03771) Allen Chambers MD Cardiology New Patie nt:The pt has hx of interventions of the arteries of the lower extremities in the past year by Dr. Moore at [facility] ([place] Now complains of worsening pain in both legs and non-healing cellulitis between the toes of the right foot. Will obtain WENDIE's and venous duplex. Allen Chambers MD Date Name Pulmonology RPM (remote patient monitoring) Venous Doppler Bilat eral LE - Reflux Arterial Duplex Bi-L ower EX Complete Echo Arterial Duplex Bi-L ower EX Venous Doppler Bilat eral LE - Reflux Complete Echo Venous Doppler Bilat eral LE - Reflux Arterial Duplex Bi-L ower EX VenaSeal VenaSeal PROTHROMBIN TIME WIT H INR LIPID PANEL CBC (INCLUDES DIFF/P LT) BASIC METABOLIC PANE L W/EGFR Venogram w/ IVUS - S LHV Venogram w/ IVUS - G C RPM (remote patient monitoring) Complete Echo Venous Doppler Bilat eral LE - Reflux Complete Echo CT Chest with contra st CT Chest without con trast MRI, Other CT Chest without con trast DLCO - 61942 FRC - 54066 FVC - 70850 PROTHROMBIN TIME WIT H INR LIPID PANEL CBC (INCLUDES DIFF/P LT) BASIC METABOLIC PANE L W/EGFR PROBNP, N TERMINAL PET/CT Skull-Thigh Creatinine, Serum Low Dose Lung CT Complete Echo Venous Doppler Bilat eral LE - Reflux Arterial Duplex Bi-L ower EX Carotid Duplex Bilat eral Arterial Duplex Bi-L ower EX Venous Doppler Bilat eral LE - Standing Carotid Duplex Bilat eral HISTORY OF PROCEDURES Procedure Date Procedure Name Provider Procedure Notes S tatus Complex e/m visit add on Allen Chambers MD completed Complex e/m visit add on Allen Chambers MD completed EKG Allen Chambers MD completed EKG Allen Chambers MD completed FVC / MVV with [facility] hodilator - 24968 Allen Chambers MD completed BLOOD COUNT HEMOGLOBIN Allen Chambers MD completed FRC - 00946 Allen Chambers MD completed SpO2 w/o 6min walk/titration Allen Chambers MD completed DLCO - 13307 Allen Chambers MD complete d Counseling LDCT Allen Chambers MD compl eted EKG Allen Chambers MD completed SNOMED-CT: 936080103 Smoking Cessation Counseling Allen Chambers MD completed SNOMED-CT: 191546404 [id number] Current Medications Documented Allen Chambers MD completed SNOMED-CT: [id number] Smoking Cessation Counseling Allen Chambers MD completed EKG Allen Chambers MD completed SNOMED-CT: [id number] Current Medications Documented Allen Chambers MD completed
--- OUTSIDE RECORDS SUMMARY | 2024-04-15 17:20 | XMS_ITS | Data Portability ---
Author Organization [place] [facility], Main Office Address [address] [place] [address] Care Team Providers Care Student Financial Services Counselor Name Role Phone ADAN HERNÁNDEZ Primary Care Provider [phone] Assessment Encounter Date Assessment Date Assessment LastModified by Organization Details LastModified Time 12/12/2023 12/12/2023 This note is dictated and transcribed by [employer]. Timber Surveyor variances may occur. Despite proofreading, typographical errors may occur. Occasional wrong-word or '[id number]' substitutions may have occurred due to the inherent limitations of voice recording. Read the chart carefully and recognize, using context, where substitutions have occurred. Not available 12/12/2023 11:06:03 Plan of Treatment Reminders Order Date Submit Date Provider Last Modified By Organization Details Last Modified Time Details Appointments None record ed. Lab None record ed. Referral None record ed. Procedures None record ed. Surgeries None record ed. Imaging None record ed. Medication Orders None record ed. Patient TargetsNo targets recorded. Patient Instructions Encounter Date Encounter Id Patient Instructions Last Modified By Organization Details Last Modified Time 12/12/2023 [id number] diabetic neuropathy: care instructions Not available 12/12/2023 11:07:51 Reason for Referral None Reported. Problems Name Problem SNOMED Code Status Onset Date Resolution Date Notes Provider Name and Address Organization Details Recorded Time Cellulitis of foot 381033948 Active Not Available [facility] 3 18:20:25 Chronic obstructiv e pulmonary disease 19494252 Active Not Available [facility] 3 18:20:25 Hearing loss 92595912 Active 2015 Not Available [facility] 3 18:20:25 Pain in bilateral legs 5104514228813 9108 Active Not Available [facility] 3 18:20:25 Pain in throat 279616843 Active Not Available [facility] 3 18:20:25 Urinary incontinen ce 850013675 Active Not Available [facility] 3 18:20:25 Insomnia 274642166 Active Not Available [facility] 3 18:20:25 Gastroesop hageal reflux disease 622228338 Active Not Available [facility] 3 18:20:25 Closed Colles' fracture 551212118 Active Not Available [facility] 3 18:20:25 Depressive disorder 44604121 Active Not Available [facility] 3 18:20:25 Arthritis 8005134 Active Not Available [facility] 3 18:20:25 Osteoarthr itis 970244655 Active Not Available [facility] 3 18:20:25 Peripheral arterial occlusive disease 047876784 Active Not Available [facility] 3 18:20:25 Obesity 981861970 Active Not Available [facility] 3 18:20:25 Laryngitis 22065202 Active Not Available [facility] 3 18:20:25 Hyperlipid emia 33385159 Active Not Available [facility] 3 18:20:25 Essential hypertensi on 25173123 Active Not Available [facility] 3 18:20:26 Fracture of forearm 23829705 Active Not Available [facility] 3 18:20:26 Alcohol dependence 35206467 Active 2015 Not Available [facility] 3 18:20:26 Smoker 13536939 Active Not Available [facility] 3 18:20:26 Anxiety 74679061 Active 2023 Ceci ahn [facility] 4 10:11:24 Breast problem 484954196 Active 2023 Ceci ahn [facility] 4 10:12:21 Bronchitis 39781688 Active 2023 Ceic ahn [facility] 4 10:12:29 Diabetes mellitus 21505076 Active 2023 Ceci ahn, [facility] 4 10:12:41 Ear problem 344225263 Active 2023 Ceci Chiu null, [facility] 4 10:12:48 Heart disease 79074807 Active 2023 Ceci ahn, [facility] 4 10:12:57 Heartburn 14929137 Active 2023 Ceci Chiu null, [facility] 4 10:13:04 Diabetic peripheral neuropathy 523254846 Active 2023 Pual De La O DPM [address], [address], [place], [address] , [facility] 4 11:06:16 Dystrophia unguium 08565958 Active 2023 Paul De La O DPM [address], [address], [place], [address] , [facility] 4 11:06:20 Notes:STINTS Problem Notes None recorded. Procedures Surgical History Date Name Laterality Status Provider Name and Address Organization Details Recorded Time Nail Debridement completed Paul De La O DPM [address], [address], [place], [address], [facility] 12/12/2023 11:06:00 Imaging Results None recorded. Procedure Notes None recorded. Medical Equipment None Reported. Allergies No known drug allergies Medications Name Sig Start Date Stop Date Status Note LastModified by Organization Details LastModified Time quetiapine 25 mg tablet TAKE ONE TABLET BY MOUTH ONCE DAILY AT BEDTIME 01/23 completed Not Available Not Available Not Available cyclobenzap rine 10 mg tablet TAKE 1 TABLET BY MOUTH TWICE DAILY NEEDED 12/11 completed Not Available Not Available Not Available amoxicillin 500 mg capsule 02/25 completed Not Available Not Available Not Available atorvastati n 40 mg tablet TAKE 1 TABLET BY MOUTH ONCE DAILY active Not Available Not Available No t Available buspirone 5 mg tablet TAKE 1 TABLET BY MOUTH TWICE DAILY NEEDED active Not Available Not Available No t Available bupropion HCl SR 150 mg tablet,12 hr sustained-r elease TAKE ONE TABLET BY MOUTH ONCE DAILY FOR 3 DAYS AND ONE TWICE DAILY THEREAFTE R FOR DEPRESSIO N 08/18 completed Not Available Not Available Not Available prednisone 10 mg tablet 11/12 completed Not Available Not Available Not Available gabapentin 600 mg tablet 01/23 completed Not Available Not Available Not Available citalopram 40 mg tablet 01/23 completed Not Available Not Available Not Available trazodone 50 mg tablet TAKE 1 TABLET BY MOUTH AT BEDTIME active Not Available Not Available No t Available cetirizine 10 mg tablet TAKE 1 TABLET BY MOUTH ONCE DAILY active Not Available Not Available No t Available azithromyci n 250 mg tablet TAKE 2 TABLETS BY MOUTH ON DAY 1, AND THEN TAKE 1 TABLET BY MOUTH ONCE A DAY ON DAY 2 THROUGH DAY 5 12/11 completed Not Available Not Available Not Available pravastatin 40 mg tablet 02/25 completed Not Available Not Available Not Available Lidocaine Viscous 2 % mucosal solution Take 15 mL every 3 hours by oral route as needed. 01/23 completed Not Available Not Available Not Available fluconazole 150 mg tablet TAKE 1 TABLET BY MOUTH NOW, THEN REPEAT IN 1 WEEK active Not Available Not Available No t Available albuterol sulfate 1.25 mg/3 mL solution for nebulizatio n 02/25 completed Not Available Not Available Not Available hydrocodone 5 mg-acetamin ophen 325 mg tablet TAKE 1 TO 2 TABLETS BY MOUTH EVERY 6 HOURS NEEDED FOR MODERATE OR MORE SEVERE PAIN 02/25 completed Not Available Not Available Not Available meloxicam 15 mg tablet 01/23 completed Not Available Not Available Not Available naltrexone 50 mg tablet 02/25 completed Not Available Not Available Not Available prednisone 20 mg tablet 11/12 completed Not Available Not Available Not Available alclometaso ne 0.05 % topical cream 01/23 completed Not Available Not Available Not Available acetaminoph en 300 mg-codeine 30 mg tablet TAKE 1 TABLET BY MOUTH TWICE DAILY NEEDED active Not Available Not Available No t Available clopidogrel 75 mg tablet TAKE 1 TABLET BY MOUTH ONCE DAILY active Not Available Not Available No t Available levofloxaci n 250 mg tablet 11/12 completed Not Available Not Available Not Available amlodipine 5 mg tablet TAKE 1 TABLET BY MOUTH ONCE DAILY 12/11 completed Not Available Not Available Not Available ciprofloxac in 500 mg tablet TAKE 1 TABLET BY MOUTH EVERY 12 HOURS 12/11 completed Not Available Not Available Not Available sulfamethox azole 800 mg-trimetho prim 160 mg tablet Take 1 tablet every 12 hours by oral route for 7 days. 01/23 completed Not Available Not Available Not Available hydrocodone 10 mg-acetamin ophen 325 mg tablet 01/23 completed Not Available Not Available Not Available doxycycline monohydrate 100 mg tablet TAKE 1 TABLET BY MOUTH TWICE DAILY FOR 14 DAYS 12/11 completed Not Available Not Available Not Available tramadol 50 mg tablet TAKE 1 TABLET BY MOUTH EVERY 6 TO 8 HOURS NEEDED 12/11 completed Not Available Not Available Not Available triamcinolo ne acetonide 0.1 % topical cream APPLY TOPICALLY TWICE DAILY TO AFFECTED AREA WITH NYSTATIN FOR ONE WEEK. 12/11 completed Not Available Not Available Not Available spironolact one 25 mg tablet TAKE 1 TABLET BY MOUTH ONCE DAILY FOR 90 DAYS 12/11 completed Not Available Not Available Not Available meloxicam 7.5 mg tablet TAKE 1 TABLET BY MOUTH TWICE DAILY WITH MEALS 12/11 completed Not Available Not Available Not Available oxycodone-a cetaminophe n 5 mg-325 mg tablet 01/23 completed Not Available Not Available Not Available potassium chloride ER 20 mEq tablet,exte nded release(par t/cryst) TAKE 2 TABLETS BY MOUTH TWICE DAILY WITH FUROSEMID E 12/11 completed Not Available Not Available Not Available famotidine 20 mg tablet TAKE 1 TABLET BY MOUTH TWICE DAILY 02/25 completed Not Available Not Available Not Available furosemide 80 mg tablet TAKE 1 TABLET BY MOUTH ONCE DAILY active Not Available Not Available No t Available Kenalog 10 mg/mL suspension for injection In office injection administe red by the provider 12/11 completed [facility]: 0003- [id number]- 20 Not Available Not Available Not Available phenazopyri dine 100 mg tablet TAKE 1 TABLET BY MOUTH THREE TIMES DAILY FOR 3 DAYS 12/11 completed Not Available Not Available Not Available amlodipine 10 mg tablet Take 1 tablet every day by oral route for 30 days. active Not Available Not Available No t Available benzonatate 100 mg capsule TAKE 1 CAPSULE BY MOUTH THREE TIMES DAILY NEEDED FOR 10 DAYS 12/11 completed Not Available Not Available Not Available doxycycline monohydrate 100 mg capsule TAKE 1 CAPSULE BY MOUTH TWICE DAILY FOR 10 DAYS active Not Available Not Available No t Available cephalexin 500 mg capsule TAKE 1 CAPSULE BY MOUTH EVERY 8 HOURS DIRECTED FOR 21 DAYS 12/11 completed Not Available Not Available Not Available paroxetine 20 mg tablet 02/25 completed Not Available Not Available Not Available nystatin 100,000 unit/gram topical cream APPLY TOPICALLY TWICE DAILY FOR 14 DAYS active Not Available Not Available No t Available ranitidine 150 mg tablet TAKE ONE TABLET BY MOUTH TWICE DAILY 02/25 completed Not Available Not Available Not Available lisinopril 10 mg tablet TAKE 1 TABLET BY MOUTH ONCE DAILY active Not Available Not Available No t Available Advair Diskus 250 mcg-50 mcg/dose powder for inhalation INHALE 1 DOSE BY MOUTH TWICE DAILY active Not Available Not Available No t Available nystatin-tr iamcinolone 100,000 unit/g-0.1 % topical cream APPLY CREAM TOPICALLY TWICE DAILY active Not Available Not Available No t Available fluoxetine 10 mg capsule TAKE 1 CAPSULE BY MOUTH ONCE DAILY 12/11 completed Not Available Not Available Not Available sertraline 25 mg tablet TAKE 1 TABLET BY MOUTH ONCE DAILY active Not Available Not Available No t Available omeprazole 20 mg capsule,del ayed release TAKE 1 CAPSULE BY MOUTH ONCE DAILY active Not Available Not Available No t Available diclofenac sodium 75 mg tablet,juan yed release 01/23 completed Not Available Not Available Not Available montelukast 10 mg tablet TAKE ONE TABLET BY MOUTH ONCE DAILY 02/25 completed Not Available Not Available Not Available hydroxyzine HCl 25 mg tablet TAKE 1 TABLET BY MOUTH EVERY 6 HOURS NEEDED 12/11 completed Not Available Not Available Not Available hydrochloro thiazide 25 mg tablet TK 1 T PO QD 01/23 completed Not Available Not Available Not Available mupirocin 2 % topical ointment APPLY A SMALL AMOUNT OF OINTMENT TOPICALLY TO AFFECTED AREA THREE TIMES DAILY active Not Available Not Available No t Available gabapentin 100 mg capsule TAKE 1 CAPSULE BY MOUTH TWICE DAILY active Not Available Not Available No t Available ergocalcife rol (vitamin D2) 1,250 mcg (50,000 unit) capsule TAKE 1 CAPSULE BY MOUTH ONCE A WEEK active Not Available Not Available No t Available nystatin 100,000 unit/gram topical powder APPLY POWDER TOPICALLY TO AFFECTED AREA TWICE DAILY NEEDED active Not Available Not Available No t Available levofloxaci n 500 mg tablet TAKE 1 TABLET BY MOUTH ONCE DAILY FOR 7 DAYS 12/11 completed Not Available Not Available Not Available methylpredn isolone 4 mg tablets in a dose pack Take 1 package by oral route. 01/23 completed Not Available Not Available Not Available oxybutynin chloride 5 mg tablet TAKE 1 TABLET BY MOUTH ONCE DAILY IN THE EVENING active Not Available Not Available No t Available fluoxetine 20 mg capsule TAKE 1 CAPSULE BY MOUTH ONCE DAILY active Not Available Not Available No t Available fluticasone propionate 50 mcg/actuati on nasal spray,suspe nsion USE 1 SPRAY(S) IN EACH NOSTRIL ONCE DAILY active Not Available Not Available No t Available doxepin 5 % topical cream 01/23 completed Not Available Not Available Not Available doxycycline hyclate 100 mg tablet 11/12 completed Not Available Not Available Not Available Ventolin HFA 90 mcg/actuati on aerosol inhaler INHALE 2 PUFFS BY MOUTH 4 TIMES DAILY NEEDED active Not Available Not Available No t Available neomycin-po lymyxin-hyd rocort 3.5 mg-10,000 unit/mL-1 % ear drops,susp INSTILL 4 DROPS INTO AFFECTED EAR(S) THREE TIMES DAILY FOR 10 DAYS 12/11 completed Not Available Not Available Not Available enoxaparin 40 mg/0.4 mL subcutaneou s syringe active Not Available Not Available No t Available azithromyci n 500 mg tablet 11/12 completed Not Available Not Available Not Available bupropion HCl XL 300 mg 24 hr tablet, extended release 02/25 completed Not Available Not Available Not Available metoprolol tartrate 25 mg tablet TAKE 1/2 (ONE-HALF ) TABLET BY MOUTH TWICE DAILY FOR 90 DAYS 12/11 completed Not Available Not Available Not Available Spiriva with HandiHaler 18 mcg and inhalation capsules Inhale one puff by mouth once daily 10/25 completed Not Available Not Available Not Available Ventolin HFA 12/11 completed Not Available Not Available Not Available lidocaine (PF) 10 mg/mL (1 %) injection solution In office injection administe red by the provider 12/11 completed [facility]: 0409- 4276- 17 Not Available Not Available Not Available quetiapine 50 mg tablet Take 1 tablet every day by oral route for 30 days. active Not Available Not Available No t Available FeroSul 325 mg (65 mg iron) tablet TAKE 1 TABLET BY MOUTH ONCE DAILY 12/11 completed Not Available Not Available Not Available Calmoseptin e 0.44 %-20.6 % topical ointment APPLY OINTMENT EXTERNALL Y TWICE DAILY NEEDED 12/11 completed Not Available Not Available Not Available Calmoseptin e 0.44 %-20.6 % topical ointment in packet APPLY OINTMENT EXTERNALL Y TWICE DAILY NEEDED 12/11 completed Not Available Not Available Not Available Breo Ellipta 100 mcg-25 mcg/dose powder for inhalation Inhale 1 puff every day by inhalatio n route. 01/23 completed Not Available Not Available Not Available Jardiance 10 mg tablet TAKE 1 TABLET BY MOUTH ONCE DAILY active Not Available Not Available No t Available Entresto 49 mg-51 mg tablet TAKE 1 TABLET BY MOUTH TWICE DAILY active Not Available Not Available No t Available Fluarix Quad 1945-8778 (PF) 60 mcg (15 mcg x 4)/0.5 mL IM syringe 01/23 completed Not Available Not Available Not Available Fluarix Quad (PF) 60 mcg (15 mcg x 4)/0.5 mL IM syringe 01/23 completed Not Available Not Available Not Available Flublok Quad (PF) 180 mcg (45 mcg x 4)/0.5 mL IM syringe active Not Available Not Available N ot Available Vitals Date Recorded Body height Body mass index (BMI) Body weight Provider Name and Address Organization Details Last Updated DateTime 12/12/2023 157.48 cm 64 kg/m2 693694.33 g Ceci Chiu [facility] 12/12/2023 10:11:03 Date Recorded Heart rate Respiratory rate Oxygen saturation Oxygen saturation in Arterial blood by Pulse oximetry Systolic blood pressure Diastolic blood pressure Provider Name and Address Organization Details Last Updated DateTime 85 /min 16 /min 97 % 97 % 93 mm[Hg] 51 mm[Hg] Maria Luz Covarrubias [facility] 10/22/202 4 10:11:22 Social History Question Answer Notes LastModified by Organizat ion Details LastModified Time Tobacco Smoking Status Former Smoker Ceci Chiu null, [place] [facility] 12/12/2023 10:14:44 What Is Your Level Of Alcohol Consumption? None Information not available 12/12/2023 When Did You Quit Smoking? 1-5yearssinc elastcigaret te Information not available 12/12/2023 At What Age Did You Start Smoking Tobacco? 9 Information not available 12/12/2023 How Many Years Have You Smoked Tobacco? 50 Information not available 12/12/2023 Sex: Unknown Functional Status None recorded. Mental Status None recorded. Family History Relationship Description Onset Age of this Age Resolved Age Notes LastModified by Organization Details LastModified Time Unspecified Relation Diabetes mellitus 2 UNCLES Not available 12/12/2023 10:13:56 Father Cerebrovascu lar accident Not available 10:14:02 Father Arthritis Not available 12/12/2023 10:14:13 Mother Arthritis Not available 12/12/2023 10:14:13 Medical History Condition Response HEART DISEASE/HEART PROBLEMS Y DIABETES, TYPE Y ARTHRITIS Y ANXIETY DISORDER Y DEPRESSION (INCLUDING POST ) Y HEARTBURN / REFLUX Y HYPERTENSION Y HIGH CHOLESTEROL / HYPERLIPIDEMIA Y Gynecological HistoryNo gynecological history recorded. Obstetrics History GPAL:G 0 P 0 0 0 0 Immunizations Vaccine Type Date Status Note Provider Nam e and Address Organization Details Recorded Time Influenza, split virus, quadrivalent, preservative 6 completed Not Available [facility] 04/20/2022 18:21:10 Past Encounters Encounter ID Performer Location Encounter Start Date Encounter Closed Date Diagnosis/Indication Diagnosis SNOMED-CT Code Diagnosis ICD10 Code Diagnosis Note [id number] Paul De La O DPM [facility] [place] [address] [facility], [facility] [address] [place] [address] 12/12/2023 10:01:55 12/12/2023 14:43:34 Diabetes mellitus 09021280 E11.40 continue diabetic control per PCP recommenda Danny mendoza educated on neuropathy , diabetes, diabetic diet, and daily foot exams. Patient is to check feet daily for new wounds, blisters, redness to prevent infection and ulceration s to the feet. Patient will return to clinic in 3 months for diabetic foot workup. Diabetic p eripheral neuropathy 609305249 E11.40 as above Dystrophia unguium 66858 009 L60.3 Nails debrided without incident Health Concerns Section Related Observation LastModified by Organization Detai ls LastModified Time None Recorded Concern Status LastModified by Organization Details LastModified Time None Recorded Advance Directives Directive None Recorded Payers Encounter Date Sequence Insurance Name Policy Number Policy De La O Covered Member ID De La O Member ID Guarantor Name 12/12/2023 1 [place] Libby Tiwari [id number] Libby Tiwari 12/12/2023 2 [employer] [place] - [place] ON [place] AFTER 2020 (MEDICAID REPLACEMENT - HMO) Libby Tiwari [id number] Libby Tiwari Notes Date Note Type Note Provider Name and Address Organization Details Recorded Time 12/12/2023 text/html . Patient is a 68-year-old female who presents the office with complaints of elongated toenails. Patient presents in a motorized wheelchair she is unable to walk due to arthritis and obesity. Patient states she is unable to bend over to cut her toenails due to her lung issues from smoking. Patient states her toenails are painful. Patient states that she has stabbing aching and intermittent pain she denies any redness or drainage. Patient denies any other complaints. Paul De La O DPM [address] [facility], [facility] [address], [place], [address], [facility] [employer] 12/12/2023 11:12:13 OBGyn Episode No OBEpisode recorded.
--- OUTSIDE RECORDS SUMMARY | 2024-04-15 17:20 | XMS_ITS | Referral Summary ---
Author Organization [facility] Address [address] [place] [address] Care Team Providers Care Museum Specialist Name Role Phone Satish Ninfa IVERSON Unavailable [phone] Lev Osullivan MD Primary Care Provider [phone] Elizabeth Santos MD Unavailable Allergies No known [...] Duonebs available p.r.n. Acute diastolic heart failure ([facility]) 09/22/19 21 Assessment & Plan (09/21/2020 [...] after her most recent discharge from SNF. 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 MEDICARE O IDPA [facility] MEDICARE [employer]PA MEDICARE Advance Directives For more information, please contact: [phone] * Full Code (Latest Code Status on File) Date Activated Date Inactivated Comments 09/21/2020 1:32 PM 09/28/2020 3:44 PM Care Teams Museum Specialist Relationship Specialty Start Date End Date Lev Osullivan MD [address] [place] [address] PCP - General 07/21/20 Ninfa Covarrubias PA [address] [place] [address] Physician Natural Gas Inspector Internal Medicine 07/21/17 Elizabeth Santos MD [address] [place] [address] Consulting Physician Sleep Medicine 09/23/20
--- OUTSIDE RECORDS SUMMARY | 2024-04-15 17:23 | XMS_ITS | CONTINUITY OF CARE DOCUMENT ---
Author Name ervin mueller Address Unknown Organization [facility] Address [address] [place] [address] Phone [phone] Care Team Providers Care Vegetable Scullion Name Role Phone Allen Chambers MD Unavailable [phone] ADAN HERNÁNDEZ MD Unavailable [phone] ADAN HERNÁNDEZ MD Unavailable [phone] PROBLEMS Condition Status Date Provider Notes CHF active Dax Granda RN HTN active Allen Chambers MD PVD S/P B/L JENNIFER stents 04/11 15, R SFA stent 05/2015; Iliac vein stents b/l 2021 active Lis Acuna Dyslipidemia active Allen Chambers MD COPD active Allen Chambers MD Cellulitis, right foot active Allen Mathur Sleep apnea - on CPAP active Drake boogie Shortness of breath active Allen Chambers MD Tobacco abuse active Allen Chambers MD Carotid artery stenosis, <50% b/l active Marianna Chambers MD Leg pain, left active Allen Chambers MD Edema active Allen Chambers MD Venous insufficiency RLE active Drake smallwood Venous varicosity LLE active Drake boogie Pulmonary nodule GUY - PET 8mm 08/2018 active Drake Dietz Mass of L inner thigh active Drake boogie Obesity active Drake Dietz CAD active Drake Dietz ENCOUNTERS Date Type Provider Location Encounter Diag nosis - In-person encounter Office Visit Allen Chambers MD [facility] Office - In-person encounter Office Visit Allen Chambers MD [place] [facility] - In-person encounter Office Visit Allen Chambers MD [place] [facility] - In-person encounter Office Visit Allen Chambers MD [place] [facility] - In-person encounter Office Visit Allen Chambers MD [facility] - In-person encounter Office Visit Allen Chambers MD [place] [facility] - In-person encounter Office Visit Allen Chambers MD [place] [facility] - In-person encounter Office Visit Allen Chambers MD [place] [facility] - In-person encounter Office Visit Allen Chambers MD [facility] Sleep apnea - on CPA P - In-person encounter Office Visit Allen Chambers MD [place] [facility] PVD S/P B/L JENNIFER stents 03/2015, R SFA stent 05/2015; Iliac vein stents b/l 2022CAD - In-person encounter Office Visit Allen Chambers MD [place] [facility] Venous insufficiency RLEVenous varicosity LLEPulmonary nodule GUY - PET 8mm 08/2018Mass of L inner thighObesity - In-person encounter Office Visit Allen Chambers MD [facility] Leg pain, leftEdema - In-person encounter Office Visit Allen Chambers MD [facility] Carotid artery stenosis, <50% b/l - In-person encounter Office Visit Allen Chambers MD [place] [facility] HTNPVD S/P B/L JENNIFER stents 03/2015, [...] Arely Sahil oxygen saturation, oximetry 96 % Arely Sahil height E&M 63 [in_i] Arely Sahil Body Mass Index (Ratio) 62.35 kg/m2 Job [...] blood pressure, systolic 146 mm[Hg] Pio helle Mitchell oxygen saturation, oximetry 98 % Renae Bruce [...] blood pressure, cuff size regular Zev isjyothi [place] blood pressure, diastolic 70 mm[Hg] Zev isty Deneen blood pressure, systolic 120 mm[Hg] Wendy Sanford pulse rate 96 /min Edita Sanford oxygen saturation, oximetry 97 % Edita Sanford respiratory rate E&M 18 /min Ediat Sanford weight E&M 342 [lb_av] Ediat Sanford blood pressure, resting No Yobani roe height E&M 63 [in_i] Edita Sanford Body Mass Index (Ratio) 63.41 kg/m2 Justa apodaca Kalpana blood pressure, cuff size regular Cy celinalorraine Wil blood pressure, diastolic 80 mm[Hg] Cy celinalorraine Wil blood pressure, systolic 134 mm[Hg] Jonna wilson De La [place]re pulse rate 81 /min Cyndie Vicentebel l oxygen saturation, oximetry 95 % Cyndie De La Torre respiratory rate E&M 20 /min Cyndie De La Torre weight E&M 358 [lb_av] Cyndie Campbel l height E&M 63 [in_i] Cyndie Campbel l Body Mass Index (Ratio) 55.79 kg/m2 Saw fulton J Luis weight E&M 315 [lb_av] Earnix height E&M 63 [in_i] Earnix Body Mass Index (Ratio) 56.68 kg/m2 Saw kirstin J Luis blood pressure, diastolic, left arm 80 mm [Hg] [facility] blood pressure, systolic, left arm 127 mm [Hg] [facility] blood pressure, diastolic, right arm 87 m m[Hg] [facility] blood pressure, systolic, right arm 135 m m[Hg] [facility] respiratory rate E&M 16 /min [facility] pulse rate 102 /min [facility] blood pressure, diastolic 87 mm[Hg] To [facility] blood pressure, systolic 135 mm[Hg] Ton [facility] oxygen saturation, oximetry 96 % [facility] weight E&M 320 [lb_av] [facility] height E&M 63 [in_i] [facility] Body Mass Index (Ratio) 56.33 kg/m2 [...] weems Alejandro blood pressure, systolic 150 mm[Hg] Hiedy ri Alejandro pulse rate 94 /min Humera Víctor higginser oxygen saturation, oximetry 96 % Humera Alejandro respiratory rate E&M 16 /min Humera G víctor Body Mass Index (Ratio) 45.70 kg/m2 Corrigan i Alejandro weight E&M 258 [lb_av] Humera Víctor lder height E&M 63 [in_i] Humera Víctor higginser ALLERGIES No Known Drug Allergies REASON [...] 0-149 0 cholesterol, serum 143 mg/dL [employer] 556-369 3731/09/1 0 calcium, serum 9.7 mg/dL [facility] 8.7-10.3 0 carbon dioxide, venous blood 28 mmol/L [employer] 20-29 0 chloride, serum 102 mmol/L [employer] 96-106 0 potassium, serum 5.6 mmol/L [employer] 3.5-5.2 High 0 sodium, serum 143 mmol/L [employer] 520-790 9204/09/1 0 urea nitrogen/creatini ne ratio, serum 23 [...] Estab. 0 platelet count 319 X10E3/UL [employer] 348-351 1787/09/1 0 red blood cell distribution width 13.2 [...] 0-149 1 cholesterol, serum 166 mg/dL [facility] 172-180 8191/10/3 1 calcium, serum 9.5 mg/dL [facility] 8.7-10.3 1 carbon dioxide, venous blood 22 mmol/L [employer] 20-29 1 chloride, serum 101 mmol/L [employer] 96-106 1 potassium, serum 4.8 mmol/L [employer] 3.5-5.2 1 sodium, serum 140 mmol/L [employer] 852-512 1773/10/3 1 urea nitrogen/creatini ne ratio, serum 21 [...] Estab. 1 platelet count 303 X10E3/UL [employer] 560-412 2296/10/3 1 red blood cell distribution width 16.3 [...] 1 tablet by mouth once daily 03/21 [facility] Specialist furosemide 80 mg tablet active Take 1 tablet by mouth once daily 03/21 [facility] Specialist atorvastatin 40 mg tablet active Take 1 tablet by mouth once daily 08/19 Kamilah Muñoz Jardiance 10 mg tablet completed Take 1 tablet by mouth once a day 03/26 - 03/21 Renae Bruce Entresto 49-51 mg tablet completed Take [...] tablet once a day 05/21 Edita Brothers tramadol 50 mg tablet active 1 tablet [...] Acuna social history E&M S moking History: Jodrana judd is a former smoker. Lis Acuna [...] ewed - no changes required Drake [facility] smoking/tobacco cess ation, patient education and counseling yes Drake [facility] number of years as a smoker 53 a Drake [facility], date [facility], [facility] pack/day 0.5 - 1 Drake [facility] cigarette use yes Drake [facility] smoking status Current every day smoker A evelia [facility] social history reviewed E&M revi ewed - no changes required [facility] smoking/tobacco cess ation, patient education and counseling yes [facility] number of years as a smoker 54 a [facility] smoking, date started 1966 [facility] smoking history, tot al pack/day 1 [facility] cigarette use yes [facility] smoking status Current every day smoker T [facility] number of years as a smoker 53 a [facility] social history reviewed E&M revi ewed - no changes required [facility] smoking/tobacco cess ation, patient education and counseling yes Cyndie De La Torre smoking, date started 1966 [facility] smoking history, tot al pack/day 1 Cyndie De La Torre cigarette use yes Cyndie patiño smoking status Current every day smoker Monserrat De La Torre social history reviewed E&M revi ewed - no changes required [facility] alcohol use, average drinks per [...] Policy type / Coverage type Ian red green party ID [place] MED[place] Medicare [id number] [facility] Medicaid 3 [id number] ADVANCE DIRECTIVES Name Date DISCUSSED - NO DECISION MADE TREATMENT PLAN Date Name Performer [id number],C,quit Connor Juan eatty [id number],BConnor Beatreji y [id number],C, N o chest pain H er updated medication list for this problem includes: Plavix 75 Mg Tablet (Clopidogrel) ..... Take 1 once a day Amlodipine 10 Mg Tablet (Amlodipine) ..... 1 tablet once a day Lis Acuna [id number],C, T he Patient was reencouraged to stop smoking. Lis Acuna [id number],C, H er updated medication list for this problem includes: Atorvastatin 40 Mg Tablet (Atorvastatin) ..... Take 1 tablet by mouth once a day Lis Acuna [id number],C, P rior BP: 146/78 (04/26/2021) Labs Reviewed: [...] tablet by mouth once daily Lis Acuna [id number],C,S /P successful b/l stenting of the iliac veins. She reports improvement, however there is still swelling. We will check to see if insurance will allow Venaseal of the left GSV. Lis Acuna [id number],C,S /P successful b/l stenting of the iliac veins. She reports improvement, however there is still swelling. We will check to see if insurance will allow Venaseal of the left GSV. Lis Acuna [id number],S, T he Patient was reencouraged to stop smoking. Lis Acuna [id number],S, T he patient is using CPAP on a regular basis. The patient has been benefiting from therapy and should continue use. Lis Acuna [id number],C, H er updated medication list for this problem includes: Atorvastatin 40 Mg Tablet (Atorvastatin) ..... Take 1 tablet by mouth once a day Lis Acuna [id number],C, B P today: 146/78 P rior BP: [...] tablet by mouth once daily Lis Acuna [id number],C, C /O increasing leg swelling. Same level [...] tablet by mouth once daily Lis Mckenzieronak [id number],C, N o chest pain H er updated medication list for this problem includes: Plavix 75 Mg Tablet (Clopidogrel) ..... Take 1 once a day Amlodipine 10 Mg Tablet (Amlodipine) ..... 1 tablet once a day [facility] [id number],C, C /O increasing leg swelling. Same level [...] 1 tablet by mouth once daily Lis Mckenziegaana [id number],C, C /O increasing leg swelling. Same level of SOB. Had moderate iliac vein compression noted in 2019. We will obtain venography with IVUS to see if compression is increased and we can intervene. Will increase Entresto to 49-51 mg BID. Lis Acuna [id number],S, Lis ghotra [id number],S, T he Patient was reencouraged to stop smoking. Lis Mckenziegaana [id number],C, H er updated medication list for this problem includes: Atorvastatin 40 Mg Tablet (Atorvastatin) ..... Take 1 tablet by mouth once a day Lis Mckenziegaana [id number],C, B P today: 140/90 P rior BP: [...] tablet by mouth once daily Lis Kalpana [id number],C, Will check with insurance if she can get Venaseal since her leg swelling and heaviness bothers her. Lis Kalpana [id number],C,T he pt could not participate in the STEP HFpEF due to inability to walk 6 minutes. If she can walk in the future, will rescreen her. Will start her on Entresto 24-26 mg BID. Will check with insurance if she can get Venaseal since her leg swelling and heaviness bothers her. Lis Kalpana [id number],C,W eight loss advised. The pt could not participate in the STEP HFpEF due to inability to walk 6 minutes. If she can walk in the future, will rescreen her. Lis Mckenzieronak [id number],C,T He pt could not participate in the [...] 1 tablet once a day Lis Kalpana [id number],S, T he patient is using CPAP on a regular basis. The patient has been benefiting from therapy and should continue use. Allen Chambers MD [id number],S,T he Patient was reencouraged to stop smoking. Allen Chambers MD [id number],S, P t is interested in losing weight, bariatric surgery is recommended (She is cleared for surgery from cardiac perspective). Allen Chambers MD [id number],C, H er updated medication list for this problem includes: Atorvastatin 40 Mg Tablet (Atorvastatin) ..... Take 1 tablet by mouth once a day Allen Chambers MD [id number],C, B P today: 120/70 P rior BP: [...] by mouth once daily Allen Chambers MD [id number],S, Allen Chambers MD [id number],S, D uplex showed insufficiency of the R GSV and R femoral vein. Allen Chambers MD [id number],C,T he pt had a recent admission to [facility] in 2020 due to CHF exacerbation (pro BNP higher than 6000). She was treated with diuretics, however she is retaining fluids again. She would like to enroll in STEP HFpEF DM study. Allen Chambers MD Cardiology: W ill check venous duplex US and arterial duplex Allen Chambers MD Cardiology: Jordana mendoza was admitted to [facility] in [place] for CHF exascerbation. Echo normal EF. Feeling [...] Romel Borregozach Cardiology:Pt was ad mitted to [facility] in [place] for CHF exascerbation. Echo normal EF. Feeling [...] mouth once daily Allen Chambers MD Cardiology Allen Chambers MD Cardiology: D uplex showed insufficiency of the R GSV and R femoral vein. Allen Chambers MD Cardiology:The pt karsten mathur a recent admission to [facility] in 2020 due to CHF exacerbation (pro [...] cleared for surgery from cardiac perspective). Lis Mckenziegaana TeleHealth:AIF 01/09 19 showed patent iliac artery stents and mild PAD. [facility] TeleHealth:320 lbs -> 315 lbs Jose eduardo [facility] TeleHealth:The patie nt is using CPAP on a regular basis. The patient has been benefiting from therapy and should continue use. [facility] TeleHealth:Pt was no t able to get the MRI of her leg due to her inability to lay flat for the test. She does not feel a mass anymore in the lower ext. Will follow clinically. [facility] TeleHealth:Due for C T of the chest to f/u on her lung nodule soon. [facility] TeleHealth:PFT's [facility] minimal obstructive airway disease. [facility] TeleHealth:PFT's spike wed minimal obstructive airway disease. Still smoking. Encouraged her to stop smoking. [facility] TeleHealth:PFT's [facility] minimal obstructive airway disease. Still smoking. Encouraged her to stop smoking. [facility] TeleHealth:No chest pain. Her updated medication list for this problem includes: Lisinopril 10 Mg Oral Tablet (Lisinopril) ..... One tab. daily Aspirin 81 Mg Oral Tablet Delayed Release (Aspirin) ..... Take one pill a day Plavix 75 Mg Oral Tablet (Clopidogrel bisulfate) ..... Take one pill a day Amlodipine Besylate 5 Mg Oral Tablet (Amlodipine besylate) ..... One tab. daily [facility] Cardiology:Continues to have SOB. Extensive cardiac workup revealed the following: mild CAD, no pulmonary HTN, normal ejection fraction, normal proBNP. Cardiac source of her SOB is unlikely. PFT's are scheduled and she was advised to see a combustion analyst. [facility] Cardiology:Continues to have SOB. Extensive [...] besylate) ..... Take one pill a day [facility] Cardiology:CHOL: 166 (12/20/2018) HDL: 45 (12/20/2018) LDL: 95 (12/20/2018) TRI (12/20/2018) The following medications were changed: Pravastatin Sodium 40 Mg Oral Tablet (Pravastatin sodium) ..... Take 1 tablet once aday Her updated medication list for this problem includes: Atorvastatin Calcium 40 Mg Oral Tablet (Atorvastatin calcium) ..... Take one tablet daily [facility] Cardiology:BP today: 135/87 P rior BP: 134/78 (12/19/2018) Her updated medication list for this problem includes: Amlodipine Besylate 10 Mg Oral Tablet (Amlodipine besylate) ..... Take one pill a day Hydrochlorothiazide 25 Mg Oral Tablet (Hydrochlorothiazide) ..... Take one pill a day [facility] Cardiology:AIF showe d patent iliac artery stents and no signficant PAD currently. [facility] Cardiology:Will reschedule her M RI. [facility] Cardiology:She will need f/u CT of the chest for lung nodule in May 2019. [facility] Cardiology:She did n ot have significant iliac vein compression and we will treat her swelling with diuretics. Drake [facility] Cardiology:Continues to have SOB. Extensive cardiac workup revealed the following: mild CAD, no pulmonary HTN, normal ejection fraction, normal proBNP. Cardiac source of her SOB is unlikely. Recommending pulmonary consultation. She is scheduled for PFT's. [facility] Cardiology follow up :Her updated medication list for this problem includes: Pravastatin Sodium 40 Mg Oral Tablet (Pravastatin sodium) ..... Take 1 tablet once aday Orders: L IPID PANEL (7600) [facility] Cardiology follow up :BP today: 134/78 P rior BP: 130/68 (06/25/2018) Her updated medication list for this problem includes: Amlodipine Besylate 10 Mg Oral Tablet (Amlodipine besylate) ..... Take one pill a day Hydrochlorothiazide 25 Mg Oral Tablet (Hydrochlorothiazide) ..... Take one pill a day [facility] Cardiology follow up :Duplex was limited technically but did not show significant arterial disease. [facility] Cardiology follow up :Duplex shows < 50% stenosis of the ICAs bilaterally. [facility] Cardiology follow up :Per duplex: A unknown mass of mixed echogenicity was seen in the area of pain which extended from the left mid to distal inner thigh at approximately the same depth as the GSV. No vascularization was seen throughout the mass. As recommended by the radiologist, she is scheduled for MRI for further assessment. [facility] Cardiology follow up :Nodule was noted on CT and PET scan was performed as recommended which showed: 8 mm subpleural pulmonary nodule in the lateral left upper lobe is FDG negative. No other potential sites of malignancy identified. Per radiologist's recommendation, she is scheduled for f/u CT imaging to confirm stability in size. [facility] Cardiology follow up :Duplex showed insufficiency of the R GSV and R femoral vein. [facility] Cardiology follow up :Echo showed [...] Will proceed to venography w/IVUS. Drake [facility] Cardiology follow up :Echo showed normal EF. CT of the chest showed coronary calcifications. She is still SOB and cannot walk short distances. In the past, BNP was elevated to 232. Will proceed to R/L heart cath and schedule PFT's. Will check proBNP. [facility] Cardiology follow up :Orders: C arotid Duplex Bilateral (CPT-61787) [facility] Cardiology follow up :BP today: 130/68 P rior BP: 124/83 (02/01/2016) Her updated medication list for this problem includes: Amlodipine Besylate 10 Mg Oral Tablet (Amlodipine besylate) ..... Take one pill a day Hydrochlorothiazide 25 Mg Oral Tablet (Hydrochlorothiazide) ..... Take one pill a day Orders: C omplete Echo (CPT-02242) [facility] Cardiology follow up :Advised to [...] is willing to undergo diagnosis and treatment. [facility] Cardiology follow up Drake smallwood Cardiology follow up :Orders: A rterial Duplex Bi-Lower EX (CPT-16475) [facility] Cardiology follow up :Orders: V enous Doppler Bilateral LE - Reflux (CPT-32933) [facility] Cardiology follow up :Orders: A rterial Duplex Bi-Lower EX (CPT-36070) V enous Doppler Bilateral LE - Reflux (CPT-98523) Drake [facility] Cardiology:<50 stenosis of ICA b ilaterally. Allen [...] V enous Doppler Bilateral LE - Standing (CPT-72206) A rterial Duplex Bi-Lower EX (CPT-68558) Allen Chambers MD Cardiology New Patie nt:The pt has hx of interventions of the arteries of the lower extremities in the past year by Dr. Moore at [facility] ([place]). Now complains of worsening pain in both [...] CT Chest without con trast DLCO - 85238 FRC - 03653 FVC - 74686 PROTHROMBIN TIME WIT H INR LIPID PANEL [...] Chambers MD completed FVC / MVV with [facility] hodilator - 63902 Allen Chambers MD completed BLOOD COUNT HEMOGLOBIN Allen Chambers MD completed FRC - 17590 Allen Chambers MD completed SpO2 w/o 6min walk/titration Allen Chambers MD completed DLCO - 95483 Allen Chambers MD complete d Counseling LDCT Allen Chambers MD compl eted EKG Allen Chambers MD completed SNOMED-CT: 402624816 Smoking Cessation Counseling Allen Chambers MD completed SNOMED-CT: [id number] 396686 Current Medications Documented Allen Chambers MD completed SNOMED-CT: 667843663 Smoking Cessation Counseling Allen Chambers MD completed EKG Allen Chambers MD completed SNOMED-CT: 548981129 571072 Current Medications Documented Allen Chambers MD completed
== END 2024-04-15 15:41 | disposition home or self-care (01) ==
PROVIDERS: Emergency Provider Nurse Practitioner; PCP Family Medicine
DX: H74.8X3 Other specified disorders of middle ear and mastoid, bilateral (principal); I11.0 Hypertensive heart disease with heart failure; I50.9 Heart failure, unspecified; E11.9 Type 2 diabetes mellitus without complications; Z79.84 Long term (current) use of oral hypoglycemic drugs; J44.9 Chronic obstructive pulmonary disease, unspecified; E78.00 Pure hypercholesterolemia, unspecified
CPT/HCPCS: 99213; G0463

== ENCOUNTER 2024-09-19 13:49 | Emergency (ER) | payer MEDICARE, MEDICAID, SELFPAY ==
--- OUTSIDE RECORDS SUMMARY | 2024-09-19 13:53 | XMS_ITS | Encounter Summary ---
Author Organization [facility] Address [address] [place] [address] Phone Care Team Providers Care Health Policy Manager Name Role Phone Lev Osullivan MD Primary Care Provider [phone] Encounter Details Date Type Department Care Team (Late st Contact Info) Description 05/29/2024 Transcribe Orders [facility] [address] [place] [id number] Nancy Pro MD [address] [place] [address] Obstructive sleep apnea (adult) (pediatric) (Primary Dx); Atherosclerosis of chemehuevi coronary artery, unspecified whether angina present, unspecified whether chemehuevi or transplanted heart; Acute diastolic heart failure (HCC); Morbid obesity (HCC); BMI 70 and over, adult (HCC); Type 2 diabetes mellitus without complication, unspecified whether 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 No 05/01/2024 Social Connection and Isolation Panel Answer Date Recorded In a typical week, how many times do you talk on the phone with family, friends, or neighbors? Three times a week 03/30/19 24 How often do you get togethe r with friends or relatives? Three times a week 03/30/2023 How often do you attend chur ch or rastafari services? 1 to 4 times per year 03/30/2023 Do you belong to any clubs o r organizations such as catholic groups, unions, fraternal or athletic groups, or [...] care, and heating? Not very hard 03/30/2023 [facility] - Occupational Stress Questionnaire Answer Date Recorded [...] the money to buy more. Never true 05/02/19 25 Within the past 12 months, t he food you bought just didn't last and you didn't have money to get more. Never true 05/01/2024 PRAPARE - Transportation Answer Date Re corded In the past 12 months, has l ack of transportation kept you from medical appointments or from getting medications? No 04/20 In the past 12 months, has l ack of transportation kept you from meetings, work, or from getting things needed for daily living? No 05/01/2024 Housing Stability Vital Sign Answer Aj e [...] place to sleep or slept in a jail (including now)? No 03/30/2023 Housing Stability Vital Sign Answer Aj e Recorded In the last 12 months, was t here a time when you were not able to pay the mortgage or rent on time? No 05/01/2024 In the past 12 months, how m any times have you moved where you were living? 0 05/01/2024 At any time in the past 12 m [facility], were you homeless or living in a jail (including now)? No 05/01/2024 Sexually Active Control Partners Comments Never rarely- using n o protections Comments No Sex and Gender Information Value Date Recorded Sex Assigned at Not on file Legal Sex Female 8:37 PM CDT Gender Identity Not on file Sexual Orientation Not on file documented as of this encounter Plan of Treatment Not on file documented as of this encounter Results * (ABNORMAL) CMP (COMPREHENSIVE METABOLIC PANEL) (05/30/2024 9:01 AM CDT) SODIUM 136 136 - 145 mmol/L 05/30/2024 9:43 AM CDT [facility] POTASSIUM 4.7 3.5 - 5.1 mmol/L 05/30/2024 9:43 AM CDT [facility] CHLORIDE 102 98 - 107 mmol/L 05/30/2024 9:43 AM CDT [facility] CO2, VENOUS 24 22 - 30 mmol/L 05/30/2024 9:43 AM CDT [facility] ANION GAP 14.7 <18.0 mmol/L 05/30/2024 9:43 AM T [facility] GLUCOSE 186(H) 70 - 99 mg/dL 05/30/2024 9:43 AM CDT [facility] BUN 12 10 - 20 mg/dL 05/30/2024 9:43 AM [facility] CREATININE, BLOOD 0.71 0.60 - 1.00 mg/dL 05/30/2024 9:43 AM CDT [facility] BUN/CREATININE RATIO 17 12 - 20 ratio 05/30/2024 9:43 AM [facility] TOTAL PROTEIN 7.7 6.0 - 8.0 g/dL 05/30/2024 9:43 AM T [facility] ALBUMIN 3.6 3.5 - 5.0 g/dL 05/30/2024 9:43 AM [facility] A/G RATIO 0.9(L) 1.0 - 2.2 05/30/2024 9:43 AM [facility] CALCIUM 9.1 8.7 - 10.5 mg/dL 05/30/2024 9:43 AM [facility] T BILI 0.7 0.2 - 1.2 mg/dL 05/30/2024 9:43 AM [facility] SGOT (AST) 72(H) <43 U/L 05/30/2024 9:43 AM T [facility] SGPT (ALT) 47 <56 U/L 05/30/2024 9:43 AM [facility] ALKALINE PHOSPHATASE 163(H) 40 - 150 U/L 05/30/2024 9:43 AM [facility] IS THE PATIENT REQUIRED TO BE FASTING? No 05/30/2024 9:43 AM [facility] GFR, ESTIMATED >60 >=60 05/30/2024 9:43 AM T [facility] Comment: Creatinine Clearance is the preferred criteria for selecting drug dose adjustments in renally impaired patients. The GFR is provided as additional pertinent clinical information. GFR is reported in mL/min/1.73 sq m. Calculation based on the Chronic Kidney Disease Epidemiology Collaboration (CKD- EPI) equation refit without adjustment for race. GFR, EST. >60 >=60 025 9:43 AM CDT [facility] GFR, EST. NONAFRICAN >60 >=60 05/30/2024 9:43 AM CDT [facility] Blood Venipuncture / Unknown 05/30/2024 9:01 AM CDT 05/30/2024 9:12 AM CDT Nancy Pro MD CHEMISTRY ORDERABLES Fin al Result Performing Organization Address [facility] Co de Phone Number [facility] [place] [address] * (ABNORMAL) HEMOGLOBIN A1C W/ ESTIMATED GLUCOSE (05/30/2024 9:01 AM CDT) HGB-A1C 7.7(H) 4.0 - 6.0 % 05/30/2024 10:07 AM CDT [facility] Est Average Glucose 174.3 mg/dL 05/30/2024 10:07 AM CDT [facility] Blood Venipuncture / Unknown 05/30/2024 9:01 AM CDT 05/30/2024 9:12 AM CDT Narrative [facility] - 05/30/2024 10:07 AM CDT HEMOGLOBIN A1C: DIABETIC PATIENTS: WELL-CONTROLLED: 6.2 - 7.0 INTERMEDIATE WELL-CONTROLLED: 7.0 - 9.0 POORLY-CONTROLLED: >9.0 Specimens containing greater than 5% of Hemoglobin F may result in lower than expected % HbA1C results. Nancy Pro MD CHEMISTRY ORDERABLES Fin al Result Performing Organization Address [facility] Co de Phone Number [facility] [place] [address] * VITAMIN D, 25 HYDROXY TOTAL (05/30/2024 9:01 AM CDT) VITAMIN D, 25 HYDROX 21.4 ng/mL 05/30/2024 9:59 AM CDT [facility] Blood Venipuncture / Unknown 05/30/2024 9:01 AM CDT 05/30/2024 9:12 AM CDT Narrative [facility] - 05/30/2024 9:59 AM CDT Published reference ranges for Vitamin D vary depending on time and place and method of testing, and on patient's age, sex, ethnicity and levels of other measured analytes such as parathormone, calcium and phosphorus. The result should be evaluated in conjunction with clinical findings and suspicions. [employer] and [employer] Clinical Practice Guidelines: Status Vitamin D levels (ng/mL) Deficient <=20 At risk of inadequacy 21-29 Sufficient 30-100 Centers of Disease Control and Prevention Guidelines: Status Vitamin D levels (ng/mL) Deficient <13 At risk of inadequacy 13-19 Sufficient 20-50 Possibly harmful >50 References: [employer], 2010 Dietary reference intakes for calcium and vitamin D. [place]: The National Academies Press. Rosy M, Bobby N, Priya WALDEN, et al., Evaluation, treatment, and prevention of Vitamin D deficiency: an Endocrinology Clinical Practice Guideline. JCEM 2011 96: 7 2082-4020. [place] A, Braydon C, Kingston D, et al., Vitamin D Status: [place], 8356-5715, NVHS data brief, no. 59, MD [place]: National Center for Health Statistics. 2011. us Nancy Pro MD CHEMISTRY ORDERABLES Fin al Result [facility] [place] [address] * THYROID STIMULATING HORMONE (TSH) (05/30/2024 9:01 AM CDT) TSH 3.342 0.300 - 5.000 mIU/L 05/30/2024 9:59 AM CDT [facility] Blood Venipuncture / Unknown 05/30/2024 9:01 AM CDT 05/30/2024 9:12 AM CDT us Nancy Pro MD CHEMISTRY ORDERABLES Fin al Result [facility] [address] [place] [address] documented in this encounter Visit Diagnoses Diagnosis Obstructive sleep apnea (adult) (pediatric)- Primary Atherosclerosis of chemehuevi coronary artery, unspecified whether angina present, unspecified whether chemehuevi or transplanted heart Acute diastolic heart failure (HCC) Acute diastolic heart failure Morbid obesity (HCC) Morbid obesity BMI 70 and over, adult (HCC) Body Mass Index 70 and over, adult Type 2 diabetes mellitus without complication, unspecified whether 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
--- OUTSIDE RECORDS SUMMARY | 2024-09-19 13:53 | XMS_ITS | Referral Summary ---
Author Organization [facility] Address [address] [place] [address] Care Team Providers Care Gas Welder Apprentice Name Role Phone Satish Ninfa IVERSON Unavailable [phone] Lev Osullivan MD Primary Care Provider [phone] Elizabeth Santos MD Unavailable Encounters Date Type Department Care Team Description 08/30/2024 1:00 PM CDT Clinical Support [facility] Metabolic Weight Management [address] [place] [address] Office Building [address], [address] [place] [phone] 08/02/2024 Telephone [facility] Metabolic Weight Management [address] [place] [address] Office Building [address], [address] [place] [phone] Maryann Curiel, SUPERVISOR ENGRAVING [employer] note /Lab result 08/02/2024 Orders Only [facility] Metabolic Weight Management [address] [place] [address] Office Building [address], [address] [place] [phone] Nancy Pro MD Type 2 diabetes mellitus without complication, without long-term current use of insulin (HCC) (Primary Dx); Class 3 severe obesity with serious comorbidity and body mass index (BMI) greater than or equal to 70 in adult 07/31/2024 Telephone [facility] Metabolic Weight Management [address] [place] [address] Medical Office Building [address], [address] [place] [phone] Jill Corrales RN update 07/30/2024 5:10 PM CDT Lab [facility] [id number] [place] [address] Class 3 severe obesity with serious comorbidity and body mass index (BMI) greater than or equal to 70 in adult; Other fatigue; Metabolic and nutritional disorder 07/30/2024 4:20 PM CDT Office Visit [facility] Metabolic Weight Management [address] [place] [address] Office [facility] 4, [address] [place] [phone] Nancy Pro MD Encounter for weight management (Primary Dx); Type 2 diabetes mellitus without complication, without long-term current use of insulin (HCC); Class 3 severe obesity with serious comorbidity and body mass index (BMI) greater than or equal to 70 in adult; SOB (shortness of breath); Obstructive sleep apnea; Other fatigue; Metabolic and nutritional disorder 07/10/2024 Telephone [facility] Metabolic Weight Management [address] [place] [address] Office [place] [address], [address] [phone] Maryann Curiel, SUPERVISOR ENGRAVING Prior Auth 07/10/2024 Orders Only [facility] Metabolic Weight Management [address] [place] [address] Office [facility] 4, [address] [phone] Nancy Pro MD Obstructive sleep apnea (Primary Dx) 07/09/2024 Telephone [facility] Metabolic Weight Management [address] [place] [address] Office [facility] 4, [address] [phone] Maryann Curiel, SUPERVISOR ENGRAVING Med Management 07/03/2024 Telephone [facility] Metabolic Weight Management [address] [place] [address] Office [place] [address], [address] [phone] Jill Corrales RN Medication Problem 06/28/2024 11:00 AM CDT Office Visit [facility] Metabolic Weight Management [address] [place] [address] Office [facility] 4, [address] [phone] Nancy Pro MD Type 2 diabetes mellitus without complication, without long-term current use of insulin (HCC) (Primary Dx); Encounter for weight management; Class 3 severe obesity with serious comorbidity and body mass index (BMI) greater than or equal to 70 in adult from Last 3 Months Allergies Active Allergy Reactions Criticality Noted Date Comments Potassium Chloride Other (See comments) 025 potassium chloride Semaglutide Other (See comments) 07/30/2024 Ozempic Medications aspirin 81 mg chewable tablet Take 1 tablet (81 mg total) by mouth daily Active albuterol 2.5 mg /3 mL (0.083 %) nebulizer solution Take 3 mL (2.5 mg total) by nebulization every 6 (six) hours as needed for wheezing Active meloxicam (MOBIC) 7.5 mg tablet Take 1 tablet (7.5 mg total) by mouth 2 (two) times a day Active oxybutynin XL (DITROPAN-XL) 5 mg 24 hr tablet Take 1 tablet (5 mg total) by mouth daily with dinner Active hydrOXYzine (ATARAX) 25 mg tablet Take 1 tablet (25 mg total) by mouth 3 (three) times a day Active FLUoxetine (FLUoxetine) 10 mg tablet/capsule Take 1 tablet/capsule (10 mg total) by mouth daily Active amLODIPine (NORVASC) 10 mg tablet Take 1 tablet (10 mg total) by mouth daily Active pravastatin (PRAVACHOL) 40 mg tablet Take 1 tablet (40 mg total) by mouth nightly Active fluticasone propion-salmete roL (ADVAIR DISKUS) 250-50 mcg/dose diskus inhaler Inhale 1 puff 2 (two) times a day Rinse mouth with water after use. Do not swallow. Active famotidine (PEPCID) 20 mg tablet Take 1 tablet (20 mg total) by mouth 2 (two) times a day Active traZODone (DESYREL) 50 mg tablet Take 1 tablet (50 mg total) by mouth nightly Active clopidogreL (PLAVIX) 75 mg tablet Take 1 tablet (75 mg total) by mouth daily Active furosemide (LASIX) 80 mg tablet Take 1 tablet (80 mg total) by mouth 2 (two) times a day 60 tablet 1 1 Active acetaZOLAMIDE (DIAMOX) 250 mg tablet Take 1 tablet (250 mg total) by mouth daily 30 tablet 1 Active Additional Information Patient not taking.Reported on 07/30/2024 fluticasone propionate (FLONASE) 50 mcg/actuation nasal spray Administer 2 sprays into each nostril daily 1 Inhaler 1 Active Additional Information Patient not taking.Reported on 07/30/2024 nystatin-triamc inolone creamIndication s:cutaneous candidiasis Apply topically 2 (two) times a day 240 g 2 4 Active triamcinolone (KENALOG) 0.1 % cream Apply topically daily Apply to affected area with nystatin for one week, BID 28.4 g 1 4 Active Jardiance 10 mg tablet Take 1 tablet (10 mg total) by mouth daily Active fluconazole (DIFLUCAN) 150 mg tablet Take 1 tablet (150 mg total) by mouth once a week 5 Active nystatin cream 5 Active acetaminophen-c odeine (TYLENOL with CODEINE #3) 300-30 mg per tablet Take 1 tablet by mouth 2 (two) times a day as needed 5 Active busPIRone (BUSPAR) 5 mg tablet Take 1 tablet (5 mg total) by mouth 2 (two) times a day as needed 5 Active miconazole 2 % cream Apply topically 2 (two) times a day 3 Active Entresto 49-51 mg tablet Take 1 tablet by mouth 2 (two) times a day 5 Active tirzepatide, weight loss, (Zepbound) 2.5 mg/0.5 mL pen injectorIndicat ions:obstructiv e sleep apnea syndrome,apnea/ hypopnea index of 20 Inject 0.5 mL (2.5 mg total) under the skin every 7 days 2 mL 5 Active tirzepatide, weight loss, (Zepbound) 5 mg/0.5 mL pen injectorIndicat ions:obstructiv e sleep apnea syndrome,apnea/ hypopnea index of 20 Inject 0.5 mL (5 mg total) under the skin every 7 days Start after taking 2.5 mg weekly for 4 weeks. 2 mL 2 5 Active Additional Information Patient not taking.Reported on 07/30/2024 ergocalciferol (VITAMIN D) 50,000 unit capsule Take 1 capsule (50,000 Units total) by mouth once a week 5 Active gabapentin (NEURONTIN) 100 mg capsule Take 1 capsule (100 mg total) by mouth 2 (two) times a day Active metFORMIN (GLUCOPHAGE) 500 mg tablet Take 1 tablet (500 mg total) by mouth Active potassium chloride ER 20 mEq CR tablet TAKE 2 TABLETS BY MOUTH TWICE DAILY WITH FUROSEMIDE 5 Active sertraline (ZOLOFT) 25 mg tablet Take 1 tablet (25 mg total) by mouth daily Active terbinafine (LamiSIL) 250 mg tablet Take 1 tablet (250 mg total) by mouth daily Active Active Problems Problem Noted Date Diagnosed Date SOB (shortness of breath) 07/31/2024 BMI 70 and over, adult 06/06/2024 Type 2 diabetes mellitus wit hout complication, without long-term current use of insulin 06/06/2024 Encounter for weight management 05/28/2024 Gastroesophageal reflux disease 09/21/2020 COPD (chronic obstructive pulmonary disease) 03/2020 Assessment & Plan (09/21/2020 5:16 PM CDT): Nonproductive cough and lack of wheezing inconsistent with acute COPD exacerbation. Stop steroids and antibiotics. Continue home COPD regimen, Duonebs available p.r.n. Acute diastolic heart failure 09/21/2020 Assessment & Plan (09/21/2020 5:17 PM CDT): [...] ordered. Cardiology consulted. Obstructive sleep apnea 09/21/2020 Overview (05/28/2024): 2013 PSG -- Class III morbid obesity. Moderately severe obstructive sleep apnea with apnea/hypopnea index of 20. Severe sleep hypoxemia secondary to sleep apnea. Surprisingly preserved sleep efficiency despite sleep apnea. Assessment & Plan (09/21/2020 5:18 PM CDT): Home CPAP unit has been broken since she recently returned home from rehab. Will provide hospital CPAP unit while inpatient. She has been trying to reschedule a new sleep study so that she can have a new unit covered by insurance, but has been having difficulty because of COVID-19. Depression 09/21/2020 Arteriosclerosis of coronary artery 01/10/2019 Class 3 severe obesity with serious comorbidity and body mass index (BMI) greater than or equal to 70 in adult 08/18/2015 Assessment & Plan (09/21/2020 5:26 PM CDT): Has been trying to get an appointment with Dr. Mcneal for gastric sleeve, encouraged continued attempts at weight loss. Acute respiratory failure with hypoxia Resolved Problems Problem Noted Date Diagnosed Date Resolved Date ETOH abuse 02/02/2015 09/26/2020 Assessment & Plan (09/21/2020 5:19 PM CDT): Patient reports she stopped drinking after her most recent discharge from SNF. Social History Tobacco Use Types Packs/Day Years Used Date Smoking Tobacco: Former Cigarettes Alcohol Use Standard Drinks/Week Comments Yes 0 (1 standard drink = 0.6 oz pur e alcohol) AUDIT-C Answer Date Recorded Q1: How often do you have a drink containing alcohol? Never 07/30/2024 Q2: How many drinks containi ng alcohol do you have on a typical day when you are drinking? Patient does not drink Q3: How often do you have si x or more drinks on one occasion? 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 Gender Identity Not on file Sexual Orientation Not on file Last Filed Vital Signs Vital Sign Reading Time Taken Comments Blood Pressure 96/61 07/30/2024 4:29 PM CDT Pulse 90 07/30/2024 4:29 PM CDT Temperature 37 C (98.6 F) 07/30/2024 4:29 PM CDT Respiratory Rate 18 12/06/2023 3:17 PM CDT Oxygen Saturation 96% 07/30/2024 4:29 PM CDT Inhaled Oxygen Concentration - - Weight 153.9 kg (339 lb 3.2 oz) 025 12:26 PM CDT Height 157.5 cm (5' 2) 08/30/2024 12:2 6 PM CDT Body Mass Index 62.04 08/30/2024 12:26 PM CDT Plan of Treatment Not on file Procedures Procedure Name Priority Date/Time Associated Diagnosis Comments CBC WITHOUT DIFFERENTIAL Routine 07/30/2024 5:17 PM CDT Class 3 severe obesity with serious comorbidity and body mass index (BMI) greater than or equal to 70 in adult Other fatigue Metabolic and nutritional disorder EGFR Routine 09/28/2020 6:45 AM CDT LIPID PANEL Routine 09/23/2020 3:35 AM CDT HEMOGLOBIN A1C Add-On 09/22/2020 3:53 AM CDT from Last 3 Months or Most Recently Relevant to Health Maintenance Results * (ABNORMAL) CBC without differential (07/30/2024 5:17 PM CDT) WBC 14.84(H) 3.80 - 9.90 K/cumm Hgb 14.8 11.9 - 15.5 g/dL [facility] Hct 46.7(H) 35.6 - 45.5 % [facility] Plt 364 150 - 400 K/cumm [facility] MPV 9.9 9.1 - 12.3 fL [facility] RBC 5.13 3.90 - 5.20 M/cumm [facility] MCV 91.0 81.3 - 96.4 fL [facility] MCH 28.8 27.1 - 33.3 pg [facility] MCHC 31.7(L) 32.3 - 35.7 g/dL [facility] RDW CV 16.3(H) 11.1 - 14.9 % [facility] RDW SD 54.0(H) 35.7 - 48.[address] [facility] NRBC abs 0.00 0.00 - 0.01 K/cumm [facility] Blood 07/30/2024 5:17 PM CDT 07/30/2024 5:20 PM CDT Nancy Pro MD LAB BLOOD ORDERABLES Fin al Result Performing Organization Address [facility]/ZIP Co de Phone Number DEBBIE WEINBERGCH [address] [facility] Department [place] [address] * eGFR (09/28/2020 6:45 AM CDT) eGFR 44 mL/min/1.7 3 m2 DEBBIE INDY (CROSBY) Comment: Interpretive Data Reference Interval Normal >/= 90 mL/min/1.73m2 Mildly decreased* 60 - 89 mL/min/1.73m2 Mildly to moderately decreased 45 - 59 mL/min/1.73m2 Moderately to severely decreased 30 - 44 mL/min/1.73m2 Severely decreased 15 - 29 mL/min/1.73m2 Kidney Failure < 15 mL/min/1.73m2 *Relative to young adult level Estimated glomerular filtration rate is determined by the CKD-EPI equation recommended by the National Kidney Foundation (KDIGO 2012 Clinical Practice Guideline for the Evaluation and Management of Chronic Kidney Disease. Kidney Intnl Suppl Feb 2012;3:1). The CKD-EPI equation should not be used for patients with unstable renal function and has not been validated in children and those over 70. Current interpretive data was last reviewed 2020 Blood specimen (specimen) 09/28/2020 6:45 AM CDT 09/28/2020 6:47 AM CDT us Jaki Yousif MD LAB BLOOD ORDERABLES Fin al Result DEBBIE PUTNAM (MARCY) 1 [facility] Department [place] [address] * (ABNORMAL) Lipid panel (09/23/2020 3:35 AM CDT) Cholesterol 90 30 - 199 mg/dL [facility] (MARCY) Comment: Interpretive Data Ages < or = 19 years Acceptable: <170 mg/dL Borderline high: 170-199 mg/dL High: >or= 200 mg/dL Ages > or = 20 years Desirable: <200 mg/dL Borderline high: 200-239 mg/dL High: >or= 240 mg/dL Literature References: 1. Expert Panel on Integrated Guidelines for Cardiovascular Health and Risk Reduction in Children and Adolescents. Pediatrics 2011;128:S213 2. NCEP Expert Panel. Circulation 2004;110:227 Current Interpretive Data was last revised on 2017. Triglycerides 61 <=149 mg/dL DEBBIE PUTNAM (MARCY) Comment: Interpretive Data Ages < or = 9 years Acceptable: <75 mg/dL Borderline high: 75-99 mg/dL High: >or= 100 mg/dL Ages 10 to 20 years Acceptable: <90 mg/dL Borderline high: 90-129 mg/dL High: >or= 130 mg/dL Ages > or = 20 years Desirable: <150 mg/dL Borderline high: 150-199 mg/dL High: 200-499 mg/dL Very high: >or= 499 mg/dL Literature References: 1. Expert Panel on Integrated Guidelines for Cardiovascular Health and Risk Reduction in Children and Adolescents. Pediatrics 2011;128:S213 2. NCEP Expert Panel. Circulation 2004;110:227 Current Interpretive Data was last revised on 2017. HDL 37(L) >=40 mg/dL DEBBIE SIDDIQUI H (MARCY) Comment: Interpretive Data Ages < or = 19 years Acceptable: >45 mg/dL Borderline low: 40-45 mg/dL Low: <40 mg/dL Ages > or = 20 years Desirable: >or= 60 mg/dL Low: <40 mg/dL Literature References: 1. Expert Panel on Integrated Guidelines for Cardiovascular Health and Risk Reduction in Children and Adolescents. Pediatrics 2011;128:S213 2. NCEP Expert Panel. Circulation 2004;110:227 Current Interpretive Data was last revised on 2017. LDL, calculated 41 <=129 mg/dL [facility] ([place]ARC[place]) Comment: Interpretive Data Ages < or = 19 years Acceptable: <110 mg/dL Borderline high: 110-129 mg/dL High: >or= 130 mg/dL Ages > or = 20 years Optimal: <100 mg/dL Near optimal: 100-129 mg/dL Borderline high: 130-159 mg/dL High: >160 mg/dL Literature References: 1. Expert Panel on Integrated Guidelines for Cardiovascular Health and Risk Reduction in Children and Adolescents. Pediatrics 2011;128:S213 2. NCEP Expert Panel. Circulation 2004;110:227 Current Interpretive Data was last revised on 2017. Non-HDL Cholesterol 53 mg/dL DEBBIE PUTNAM (MARCY) Comment: Interpretive Data Ages < or = 19 years Acceptable: <120 mg/dL Borderline high: 120-144 mg/dL High: >145 mg/dL Ages > or = 20 years When triglycerides are >200 mg/dL, Non-HDL cholesterol is a secondary target of therapy with treatment goals that are 30 mg/dL greater than the LDL cholesterol target. Literature References: 1. Expert Panel on Integrated Guidelines for Cardiovascular Health and Risk Reduction in Children and Adolescents. Pediatrics 2011;128:S213 2. NCEP Expert Panel. Circulation 2004;110:227 Current Interpretive Data was last revised on 2017. Chol/HDL ratio 2 KIMBERLI PUTNAM (MARCY) Blood specimen (specimen) 09/23/2020 3:35 AM CDT 09/23/2020 4:29 AM CDT Jaki Yousif MD LAB BLOOD ORDERABLES Fin al Result DEBBIE PUTNAM ([place]) 1 [facility] Department [place] [address] * (ABNORMAL) Hemoglobin A1c (09/22/2020 3:53 AM CDT) Hgb A1C 6.4(H) 4.0 - 5.6 % [facility]E PUTNAM (MARCY) Estimated Average Glucose 137 mg/dL [facility] PUTNAM (MARCY) Comment: The ADA recommends reporting an estimated Average Glucose (eAG) with all Hemoglobin A1c results using the equation derived from a study of 507 normal and diabetic adults. Minority populations were underrepresented and children were not included. (Diabetes Care 31:9033-9893, 2007). The eAG is not equivalent to a fasting glucose. Blood specimen (specimen) 09/22/2020 3:53 AM CDT 09/22/2020 9:51 AM CDT Jaki Yousif MD LAB BLOOD ORDERABLES Fin al Result [facility] ([place]) 1 [facility] Department [place] [address] from Last 3 Months or Most Recently Relevant to Health Maintenance Insurance [employer] MED[employer]ARE HMO [facility] MEDICARE [facility] MEDICARE Advance Directives For more information, please contact: [phone] * Full Code (Latest Code Status on File) Date Activated Date Inactivated Comments 09/21/2020 1:32 PM 09/28/2020 3:44 PM Care Teams Gas Welder Apprentice Relationship Specialty Start Date End Date Lev Osullivan MD [address] [place] [address] PCP - General 07/21/20 Ninfa Covarrubias PA [address] [place] [address] Physician Aquatic Instructor Internal Medicine 07/21/17 Elizabeth Santos MD [address] [place] [address] Consulting Physician Sleep Medicine 09/23/20
--- OUTSIDE RECORDS SUMMARY | 2024-09-19 13:53 | XMS_ITS | Clinical Summary ---
Author Organization [facility] Address [address] [address] Phone Care Team Providers Care Project Coordinator Name Role Phone Lev Osullivan MD Primary Care Provider [phone] Allergies Active Allergy Reactions Criticality Noted Date [...] Tablet by mouth 2 times daily. Active Empagliflozin (Jardiance) 10 MG Tablet Take [...] (Description and Location) 56 g 3 Active Additional Information Patient not taking.Reported on 05/01/2024 Menthol-Zinc Oxide (Moisture Barrier) 0.44-20.6 % Ointment Application Site: affected areas twice daily (Description and Location) 113 g 3 Active acetaminophen-co deine (TYLENOL #3) 300-30 MG TabletIndication s:Acute on chronic diastolic congestive heart failure (HCC) Take 1 Tablet by mouth 2 times daily as needed for Moderate or more severe pain. 15 Tablet 5 Active Active Problems Problem Noted Date Diagnosed [...] Problem Noted Date Diagnosed Date Resolved Date Acute on chronic diastolic c ongestive heart failure 05/02/2024 05/06/2024 Dyspnea 05/01/2024 05/02/2024 CHF exacerbation 03/30/2023 04/01/2023 Cellulitis and abscess of toe 02/16/2015 04/01/2023 Immunizations Immunization Administration Dates Next Due Covid-19 [...] e alcohol) a fifth every other day [facility] Utilities Answer Date Recorded In the past 12 months has e [place], gas, oil, or water [facility] threatened to shut off services in your home? No 05/01/2024 Social Connection and Isolation Panel Answer Date Recorded In a typical week, how many times do you talk on the phone with family, friends, or neighbors? Three times a week 03/30/19 How often do you get togethe r with friends or relatives? Three times a week 03/30/2023 How often do you attend [facility] or gnosticism services? 1 to 4 times per year 03/30/2023 Do you belong to any clubs o r organizations such as adventist groups, unions, fraternal or athletic groups, or [...] care, and heating? Not very hard 03/30/2023 [facility] Occupational Stress Questionnaire Answer Date [...] place to sleep or slept in a retirement (including now)? No 03/30/2023 Housing Stability Vital Sign Answer Aj e Recorded In the last 12 months, was t here a time when you were not able to pay the mortgage or rent on time? No 05/01/2024 In the past 12 months, how m any times have you moved where you were living? 0 05/01/2024 At any time in the past 12 m [facility], were you homeless or living in a retirement (including now)? No 05/01/2024 Sexually Active Control Partners Comments Never rarely- using n o protections Comments No Sex and Gender Information Value Date Recorded Sex Assigned at Not on file Legal Sex Female 8:37 PM CDT Gender Identity Not on file Sexual Orientation Not on file Last Filed Vital Signs Vital Sign Reading Time Taken Comments Blood Pressure 129/75 05/06/2024 6:48 PM CDT Pulse 91 05/06/2024 6:48 PM CDT Temperature 36.8 C (98.2 F) 05/06/2024 3:09 PM CDT Respiratory Rate 24 05/06/2024 6:48 PM CDT Oxygen Saturation 96% 05/06/2024 6:48 PM CDT Inhaled Oxygen Concentration - - Weight 167.8 kg (369 lb 14.9 oz) 05/06/2024 3:09 PM CDT Height 157.5 cm (5' 2) 05/06/2024 3:09 PM CDT Body Mass Index 67.66 05/06/2024 3:09 PM CDT Plan of Treatment Health Maintenance Due Date Last Done Comments DEXA Bone Density 1955 Hepatitis C Virus (HCV) Screening 1955 TdaP Immunization 1955 Cologuard 1998 Colonoscopy 1998 Colorectal Cancer Screening 1998 Immunochemical Fecal Occult Blood 1998 Respiratory Syncytial Virus (RSV) Immunization (Adult) (1 - Risk 60-74 years 1-dose series) 2013 SARS-COV-2 Immunization ( season) 2023 05/27/2020 Mammogram 10/09/2024 10/10/2023, 06/0 02/2020, 07/21/2020, Additional history exists Influenza Immunization (#1) 10/21/202411/21, 02/21/2023, 01/04/2021, Additional history exists Pneumococcal Immunization (50+ years) Completed 01/04/2021, 11/28/2018, 11/28/2018, Additional history exists Pneumococcal Immunization Combined Discontinued 01/04/2021, 11/28/2018, 11/28/2018, Additional history exists Zoster Immunization Completed 12/14/2021, 2 Hepatitis B Immunization Aged Out No longer eligible based on patient's age to complete this topic Human Papillomavirus (HPV) Immunization Aged Out No longer eligible based on patient's age to complete this topic Meningococcal Immunization (ACWY) Aged Out No longer eligible based on patient's age to complete this topic Rotavirus Immunization Aged Out No lo nger eligible based on patient's age to complete this topic Medical Devices Implanted Type Area Descriptive Catalog Librarian Device Identifier Shelf Expiration Date Model / Serial / Lot Pkg Assy [id number] Smart Davi 80cm - [id number] Implanted:Qty: 1 on 04/17/2015 by Ron Moore MD at [facility] IMPLANT Right: Iliac JNJ / CORD 11/19/2016 [id number] / / [id number] Stent Biliary Transhepatic Self-Expandin - [id number] Implanted:Qty: 1 on 04/17/2015 by Ron Moore MD at [facility] IMPLANT Left: Iliac JNJ / CORD 07/20/2016 [id number] / / [id number] Angioseal Vip 6fr - [id number] Implanted:Qty: 1 on 04/17/2015 by Ron Moore MD at [facility] IMPLANT Right: Groin ST ANITA / ATRIAL FIB 09/20/2015 [id number] / / [id number] Angioseal Vip 6fr - [id number] Implanted:Qty: 1 on 04/17/2015 by Ron Moore MD at [facility] IMPLANT Left: Groin ST ANITA / ATRIAL FIB 09/20/2015 [id number] / / [id number] Angioseal Vip 6fr - [id number] Implanted:Qty: 1 on 06/03/2015 by Ron Moore MD at [facility] IMPLANT Left: Groin ST ANITA / ATRIAL FIB 09/20/2015 [id number] / / [id number] Smart Control Implanted:Qty: 1 on 06/03/2015 by Ron Moore MD at [facility] Right: Leg CORDIS 11/19/2016 [id number] / NA / [id number] Procedures Procedure Name Priority Date/Time Associated Diagnosis [...] copy. Current study was also evaluated with [employer] version 7.2. CLINICAL: Diagnostic study. Left purple [...] to exams dated: 07/21/2020, 09/17/2018, and 03/17/2014 [facility]. BREAST TISSUE:There are scattered fibroglandular densities in [...] signed by: Kalee Pineda M.D. ll/:10/10/2023 12:28:35 Veterinary Assistant Technician(s): Marilin Ricci RT(R)(M), [facility]; Cassie Padilla, [facility] letter sent: Birad 3 Followup Reading location: [facility] OVERALL STUDY BIRADS: 3 Probably benign [...] to exams dated: 07/21/2020, 09/17/2018, and 03/17/2014 [facility]. BREAST TISSUE:There are scattered fibroglandular densities in [...] signed by: Kalee Pineda M.D. 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 PRE-ARREST: Use entire range of life support measures to stabilize the patient. * Full Code Date Activated Date Inactivated Comments 03/30/2023 2:29 [...] 1:40 PM 10/13/2022 8:29 AM Care Teams Project Coordinator Relationship Specialty Start Date End Date Lev Osullivan MD [address] [place] [address] [place] [address] PCP - General Family Medicine 07/12/19
--- OUTSIDE RECORDS SUMMARY | 2024-09-19 13:53 | XMS_ITS | Clinical Summary ---
Author Organization [facility] Address [address] [place] [address] Care Team Providers Care Lawn Caretaker Name Role Phone Satish Ninfa IVERSON Unavailable [phone] Lev Osullivan MD Primary Care Provider [phone] Elizabeth Santos MD Unavailable Allergies Active Allergy Reactions Criticality Noted Date [...] 2 (two) times a day 5 Active metFORMIN (GLUCOPHAGE) 500 mg tablet Take 1 tablet (500 mg total) by mouth 5 Active potassium chloride ER 20 mEq CR tablet TAKE 2 TABLETS BY MOUTH TWICE DAILY WITH FUROSEMIDE 5 Active sertraline (ZOLOFT) 25 mg tablet Take 1 tablet (25 mg total) by mouth daily 5 Active terbinafine (LamiSIL) 250 mg tablet Take [...] steroids and antibiotics. Continue home COPD regimen, Duonejohn paul available p.r.n. Acute diastolic heart failure 09/21/2020 [...] after her most recent discharge from SNF. Encounters Date Type Department Care Team Description 08/30/2024 1:00 PM CDT Clinical Support [facility] Metabolic Weight Management [address] [place] [address] Medical Office Building [address] [place] [address] 08/02/2024 Telephone [facility] Metabolic Weight Management [address] [place] [address] Office Building [address] [place] [address] Maryann Curiel CMA [place] note /Lab result 08/02/2024 Orders Only [facility] Metabolic Weight Management [address] [place] [address] Office [address], [address] [place] [address] Nancy Pro MD Type 2 diabetes mellitus without complication, without long-term current use of insulin (HCC) (Primary Dx); Class 3 severe obesity with serious comorbidity and body mass index (BMI) greater than or equal to 70 in adult 07/31/2024 Telephone [facility] Metabolic Weight Management [address] [place] [address] Office [address] [place] [phone] Jill Corrales RN update 07/30/2024 5:10 PM CDT Lab [facility] [address] [place], [place] [id number] Class 3 severe obesity with serious comorbidity and body mass index (BMI) greater than or equal to 70 in adult; Other fatigue; Metabolic and nutritional disorder 07/30/2024 4:20 PM CDT Office Visit [facility] Metabolic Weight Management [address] [place] [address] Office [facility] [address] [place] [phone] Nancy Pro MD Encounter for weight management (Primary Dx); Type 2 diabetes mellitus without complication, without long-term current use of insulin (HCC); Class 3 severe obesity with serious comorbidity and body mass index (BMI) greater than or equal to 70 in adult; SOB (shortness of breath); Obstructive sleep apnea; Other fatigue; Metabolic and nutritional disorder 07/10/2024 Telephone [facility] Metabolic Weight Management [address] [place] [address] Office [address] [place] [phone] Maryann Curiel CMA Prior Auth 07/10/2024 Orders Only [facility] Metabolic Weight Management [address] [place] [address] Office [address] [place] [address] Nancy Pro MD Obstructive sleep apnea (Primary Dx) 07/09/2024 Telephone [facility] Metabolic Weight Management [address] [facility] Medical Office Building [address] [place] [phone] Rowandam[place]areen MaryannDORI Med Management 07/03/2024 Telephone [facility] Metabolic Weight Management [address] [place] [address] Office [address] [place] [address] Jill Corrales RN Medication Problem 06/28/2024 11:00 AM CDT Office Visit [facility] Metabolic Weight Management [address] [place] [address] Office [address] [place] [address] Nancy Pro MD Type 2 diabetes mellitus without complication, without long-term current use of insulin (HCC) (Primary Dx); Encounter for weight management; Class 3 severe obesity with serious comorbidity and body mass index (BMI) greater than or equal to 70 in adult from Last 3 Months Surgical History Surgery Date Site/Laterality Comments PERIPHERAL ARTERIAL STENT GRAFT Medical History Medical History Date Comments COPD (chronic obstructive pulmonary disease) (HC C) Arthritis Hypertension High cholesterol Cardiovascular disease Peripheral arterial disease with history of brendan scularization Obstructive sleep apnea Morbid obesity (HCC) GERD [...] on file 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[employer] Gender Identity Not on file Sexual Orientation [...] 08/30/2024 12:26 PM CDT Plan of Treatment Health Maintenance Due Date Last Done Comments Albumin Creatinine Ratio, Urine 1955 Colon Cancer Screening-Colonoscopy 1953 Hepatitis C Screening 1953 Osteoporosis Screening-Bone Density Scan 1953 Dilated Eye Exam 1953 Foot Exam 1953 DTaP/Tdap/Td Vaccine (1 - Tdap) 1964 Hepatitis B Screening 08/24/1971 Well Visit 65+ 2018 Hemoglobin A1C 03/25/2021 09/22/2020 Breast Cancer Screening-Mammogram 07/23/2021 07/23/2020, 07/21/2020, 07/21/2020, Additional history exists Lipid Panel 09/23/2021 09/23/2020 Fall Risk Assessment 09/28/2021 09/28/2020 eGFR 09/28/2021 09/28/2020, 08/0 09/2020, 09/26/2020, Additional history exists Covid-19 Vaccine (2 - 2023-2 5 season) 2023 05/27/2020 Influenza Vaccine (#1) 2024 , 11/28/2019, 11/28/2018, Additional history exists Depression Screening 11/02/2024 11/03/2023, 11/03/2023, 10/26/2023 Pneumococcal vaccine 65+ Completed 021, 11/28/2018, 01/09/2013 Zoster Vaccine Completed 12/14/2021, 09/29/2021 Procedures Procedure Name Priority Date/Time Associated Diagnosis [...] K/cumm Hgb 14.8 11.9 - 15.5 g/dL [facility] Hct 46.7(H) 35.6 - 45.5 % [facility] Plt 364 150 - 400 K/cumm [facility] MPV 9.9 9.1 - 12.3 fL [facility] RBC 5.13 3.90 - 5.20 M/cumm [facility] MCV 91.0 81.3 - 96.4 fL [facility] MCH 28.8 27.1 - 33.3 pg [facility] MCHC 31.7(L) 32.3 - 35.7 g/dL [facility] RDW CV 16.3(H) 11.1 - 14.9 % [facility] RDW SD 54.0(H) 35.7 - 48.1 fL [facility] NRBC abs 0.00 0.00 - 0.01 K/cumm [facility] Blood 07/30/2024 5:17 PM CDT 07/30/2024 5:20 PM CDT Nancy Pro MD LAB BLOOD ORDERABLES Fin al Result Performing Organization Address City/[facility]/ZIP Co de Phone Number [facility] [address] [facility]. [place] [address] * eGFR (09/28/2020 6:45 AM CDT) eGFR 44 mL/min/1.7 3 m2 [facility] ([place]) Comment: Interpretive Data Reference Interval Normal >/= [...] 6:45 AM CDT 09/28/2020 6:47 AM CDT Jaki Yousif MD LAB BLOOD ORDERABLES Fin al Result Performing Organization Address City/[facility]/ZIP Co de Phone Number [facility] [place] ([place]) [address] [facility] Department [place] [address] * (ABNORMAL) Lipid panel (09/23/2020 3:35 AM CDT) Cholesterol 90 30 - 199 mg/dL [facility] ([place]) Comment: Interpretive Data Ages < or [...] on 2017. HDL 37(L) >=40 mg/dL [facility] [place] ([place]) Comment: Interpretive Data Ages < or [...] 2017. LDL, calculated 41 <=129 mg/dL [facility] [place] ([place]) Comment: Interpretive Data [...] on 2017. Non-HDL Cholesterol 53 mg/dL [facility]) Comment: Interpretive Data Ages < or = [...] on 2017. Chol/HDL ratio 2 [facility]IMBERLI [place] ([place]) Blood specimen (specimen) 09/23/2020 3:35 AM CDT 09/23/2020 4:29 AM CDT Jaki Yousif MD LAB BLOOD ORDERABLES Fin al Result [facility] [place] ([place]) [facility] Department of Laboratories [place] [id number] * (ABNORMAL) Hemoglobin A1c (09/22/2020 3:53 AM CDT) Hgb A1C 6.4(H) 4.0 - 5.6 % [facility] [place] ([place]) Estimated Average Glucose 137 mg/dL [facility] [place] ([place]) Comment: The ADA recommends reporting an estimated Average Glucose (eAG) with all Hemoglobin A1c results using the equation derived from a study of 507 normal and diabetic adults. Minority populations were underrepresented and children were not included. (Diabetes Care 31:1841-4512, 2008). The eAG is not equivalent to a fasting glucose. Blood specimen (specimen) 09/22/2020 3:53 AM CDT 09/22/2020 9:51 AM CDT Jaki Yousif MD LAB BLOOD ORDERABLES Fin al Result [facility] [place]) [facility] [place] [address] from Last 3 Months or Most Recently Relevant to Health Maintenance Insurance [facility] MEDICARE HMO IDPA [facility] MEDICARE [place] MEDICARE Advance Directives For more information, please contact: [phone] * Full Code (Latest Code Status on File) Date Activated Date Inactivated Comments 09/21/2020 1:32 PM 09/28/2020 3:44 PM Care Teams Lawn Caretaker Relationship Specialty Start Date End Date Lev Osullivan MD [address] [place] [address] PCP - General 07/21/20 Ninfa Covarrubias PA [address] [place] [address] Physician Special Client Bus Driver Internal Medicine 07/21/17 Elizabeth Santos MD [address] [place] [address] Consulting Physician Sleep Medicine 09/23/20
[2024-09-19 13:58] VITALS: BP 104/52; PULSE 90; RESP 20; TEMP 36.6; O2SAT 98
--- NOTE | 2024-09-19 14:29 | ED_ITS ---
HPI - Ear Problem General Chief complaint: Ear Stated complaint: Ear Problem Time Seen by Provider: 09/19/24 14:03 Source: patient and RN notes reviewed Mode of arrival: ambulatory Limitations: no limitations History of Present Illness HPI Narrative: Patient presents today complaining of right ear clogging x5 months, with popping and sharp pain of the left ear and draining of the left ear while she sleeps. No OTC interventions prior to arrival. Patient has been using Q-tips in her ear until about 6 months ago, now she only uses her finger on a washcloth to clean her ears out. No recent illness. Related Data Home Medications ?Medication ?Instructions ?Recorded ?Confirmed ?Last Taken ?Type acetaminophen 300 mg-codeine 30 mg 1 tablet PO BID 10/05/23 10/05/23 Unknown History tablet atorvastatin 40 mg tablet 40 mg PO DAILY 10/05/23 10/05/23 Unknown History buspirone 5 mg tablet 5 mg PO DAILY 10/05/23 10/05/23 Unknown History cetirizine 10 mg tablet 10 mg PO DAILY 10/05/23 10/05/23 Unknown History clopidogrel 75 mg tablet 75 mg PO DAILY 10/05/23 10/05/23 Unknown History empagliflozin 10 mg tablet 10 mg PO DAILY 10/05/23 10/05/23 Unknown History (Jardiance) furosemide 80 mg tablet 80 mg PO DAILY 10/05/23 10/05/23 Unknown History nystatin-triamcinolone 100,000 1 applic topical BID 10/05/23 10/05/23 Unknown History unit/g-0.1 % topical cream omeprazole 20 mg capsule,delayed 20 mg PO DAILY 10/05/23 10/05/23 Unknown History release sacubitril 49 mg-valsartan 51 mg 1 tablet PO BID 10/05/23 10/05/23 Unknown History tablet (Entresto) albuterol sulfate 90 mcg/actuation inhalation 04/15/24 Unknown History aerosol inhaler (Ventolin HFA) fluoxetine 20 mg capsule mg 04/15/24 Unknown History gabapentin 100 mg capsule mg 04/15/24 Unknown History oxybutynin chloride 5 mg tablet mg 04/15/24 Unknown History sertraline 25 mg tablet mg 04/15/24 Unknown History trazodone 50 mg tablet mg 04/15/24 Unknown History albuterol sulfate 1.25 mg/3 mL mg 09/19/24 Unknown History solution for nebulization cholecalciferol (vitamin D3) 1,250 09/19/24 Unknown History mcg (50,000 unit) capsule ergocalciferol (vitamin D2) 1,250 09/19/24 Unknown History mcg (50,000 unit) capsule fluconazole 150 mg tablet mg 09/19/24 Unknown History fluticasone propionate 230 inhalation 09/19/24 Unknown History mcg-salmeterol 21 mcg/actuation HFA inhaler (Advair HFA) metformin 500 mg tablet mg 09/19/24 Unknown History tirzepatide (weight loss) 5 mg/0.5 mg subcut 09/19/24 Unknown History mL subcutaneous pen injector (Zepbound) Allergies Allergy/AdvReac Type Severity Reaction Status Date / Time No Known Allergies Allergy Verified 09/19/24 14:03 [facility] Past Medical History Medical History (Updated 09/19/24 @ 14:37 by Nancy Delgado, [facility], ) Diabetes High cholesterol Hypertension Comments At time of signature, I have reviewed and agree with nursing past medical, surgical, social and family history unless otherwise noted. Please see nursing chart for further information. There is no relevant family history pertinent to the presenting complaint Exam Narrative: GENERAL: Chronically ill-appearing, over-nourished, and in no acute distress. HEAD: Normocephalic, atraumatic. EYES: EOMI. No redness or drainage. Conjunctivae normal. ENT: Mucous membranes pink and moist. Left TM and canal normal. Right ear: Canal normal. TM occluded with cerumen. See procedure note NECK: Normal AROM. CHEST: No respiratory distress. EXTREMITIES: Patient wheelchair bound due to bilateral knee arthritis bone on bone. SKIN: Warm, dry, no rash. Capillary refill normal. Normal skin turgor. NEURO: No focal deficits. Alert and oriented x3. PSYCH: Normal affect. No signs of depression or anxiety. Course Course Level of Care: Express Care Visit Vital Signs Vital signs: Vital Signs Temperature 97.8 F 09/19/24 13:58 Pulse Rate 90 09/19/24 13:58 Respiratory Rate 20 09/19/24 13:58 Blood Pressure 104/52 L 09/19/24 13:58 Pulse Oximetry 98 09/19/24 13:58 Oxygen Delivery Room Air 09/19/24 13:58 Temperature 97.8 F 09/19/24 13:58 Pulse Rate 90 09/19/24 13:58 Respiratory Rate 20 09/19/24 13:58 Blood Pressure 104/52 L 09/19/24 13:58 Pulse Oximetry 98 09/19/24 13:58 Oxygen Delivery Room Air 09/19/24 13:58 Reviewed Procedures Ear Wax Removal Right Ear: Ear Wax Removal Date: 09/19/24 Ear Wax Removal Time: 14:30 Cerumenolytic Used: other (water with small amount of peroxide) Results: Re-examined: some cerumen remains and other (piece of Qtip remains as well) TM Examination: other (unable to visualize) Ear Canal Exam: atraumatic Patient Tolerated Procedure: well Complications: no problems Technique: ear canal irrigated Additional Comments: Small piece of cotton consistent with Qtip removed along with flecks of cerumen. Medical Decision Making MDM Narrative Medical decision making narrative: 69-year-old female patient with history of hypertension, high cholesterol, diabetes, wheelchair bound, presents with right ear clogging, and left ear pain and popping. No OTC interventions prior to arrival. Upon exam, left ear canal and TM normal. Right ear shows cerumen impaction. Upon irrigation, small piece of cotton, presumably from a Q-tip, was removed along with flecks of cerumen. Remaining canal material is deep in canal. Recommend visit to ENT for complete, safe removal. Patient agrees with plan. VSS. Differential Diagnosis Differential Diagnosis: Otitis media, otitis externa, ruptured TM, serous otitis, cerumen impaction, foreign body Vital Signs Vital Signs: Vital Signs Temperature 97.8 F 09/19/24 13:58 Pulse Rate 90 09/19/24 13:58 Respiratory Rate 20 09/19/24 13:58 Blood Pressure 104/52 L 09/19/24 13:58 Pulse Oximetry 98 09/19/24 13:58 Oxygen Delivery Room Air 09/19/24 13:58 Temperature 97.8 F 09/19/24 13:58 Pulse Rate 90 09/19/24 13:58 Respiratory Rate 20 09/19/24 13:58 Blood Pressure 104/52 L 09/19/24 13:58 Pulse Oximetry 98 09/19/24 13:58 Oxygen Delivery Room Air 09/19/24 13:58 Critical Care Time Critical Care Time Critical Care Time: No Discharge Plan Discharge Clinical Impression: Impacted cerumen of right ear Foreign body in right ear Qualifiers: Encounter type: initial encounter Qualified Code(s): T16.1XXA - Foreign body in right ear, initial encounter Patient Disposition: Home Condition: Stable Additional Instructions: Small amount of ear wax and small piece of Qtip removed from your right ear canal, but some still remains deep in the canal. Please schedule a visit with ENT for further evaluation. Patient Language: Swedish Prescriptions: No Action buspirone 5 mg tablet 5 mg PO DAILY furosemide 80 mg tablet 80 mg PO DAILY Jardiance 10 mg tablet 10 mg PO DAILY Entresto 49-51 mg tablet 1 tablet PO BID acetaminophen-codeine 300-30 mg tablet 1 tablet PO BID nystatin-triamcinolone 100,000-0.1 unit/g-% cream 1 applic TOPICAL BID atorvastatin 40 mg tablet 40 mg PO DAILY cetirizine 10 mg tablet 10 mg PO DAILY omeprazole 20 mg capsule,delayed release(DR/EC) 20 mg PO DAILY clopidogrel 75 mg tablet 75 mg PO DAILY trazodone 50 mg tablet sertraline 25 mg tablet gabapentin 100 mg capsule albuterol sulfate [Ventolin HFA] 90 mcg/actuation HFA aerosol inhaler INHALATION oxybutynin chloride 5 mg tablet fluoxetine 20 mg capsule metformin 500 mg tablet fluconazole 150 mg tablet albuterol sulfate 1.25 mg/3 mL solution for nebulization ergocalciferol (vitamin D2) 1,250 mcg (50,000 unit) capsule fluticasone propion-salmeterol [Advair HFA] 230-21 mcg/actuation HFA aerosol inhaler INHALATION cholecalciferol (vitamin D3) 1,250 mcg (50,000 unit) capsule Zepbound 5 mg/0.5 mL pen injector SUBCUT Follow-up/Referrals: Tyler Mclaughlin MD [Physician] - [facility],Lev Art MD [Primary Care Provider] - Time of Disposition: 14:33
== END 2024-09-19 14:41 | disposition home or self-care (01) ==
PROVIDERS: Emergency Provider Nurse Practitioner; PCP Family Medicine
DX: H61.21 Impacted cerumen, right ear (principal); T16.1XXA Foreign body in right ear, initial encounter; E11.9 Type 2 diabetes mellitus without complications; I10 Essential (primary) hypertension; Z79.899 Other long term (current) drug therapy; Z79.84 Long term (current) use of oral hypoglycemic drugs
CPT/HCPCS: 69209; 99212; A9270; G0463

== ENCOUNTER 2024-11-06 14:45 | Emergency (ER) | payer MEDICARE, MEDICAID, SELFPAY ==
[2024-11-06 14:50] VITALS: BP 110/46; PULSE 87; RESP 16; TEMP 35.5; O2SAT 97
--- OUTSIDE RECORDS SUMMARY | 2024-11-06 15:24 | XMS_ITS | Clinical Summary ---
Author Organization [facility] Address [address] [place] [address] Care Team Providers Care Telecommunications Consultant Name Role Phone Satish Ninfa IVERSON Unavailable [phone] Lev Osullivan MD Primary Care Provider Elizabeth Santos MD Unavailable Allergies Active Allergy [...] mg total) by mouth nightly Active fluticasone propion-salmet Michael (ADVAIR DISKUS) 250-50 mcg/dose diskus inhaler Inhale [...] (two) times a day 60 tablet 1 09/28/19 21 Active acetaZOLAMIDE (DIAMOX) 250 mg tablet Take 1 tablet (250 mg total) by mouth daily 30 tablet 09/28/19 21 Active Additional Information Patient not taking.Reported on 07/30/2024 fluticasone propionate (FLONASE) 50 mcg/actuation nasal spray Administer 2 sprays into each nostril daily 1 Inhaler 09/29/19 21 Active Additional Information Patient not taking.Reported on 07/30/2024 nystatin-triam cinolone creamIndicatio ns:cutaneous candidiasis Apply topically 2 (two) times a day 240 g 2 05/19/19 24 Active triamcinolone (KENALOG) 0.1 % cream Apply topically daily Apply to affected area with nystatin for one week, BID 28.4 g 1 08/17/19 24 Active Jardiance 10 mg tablet Take 1 tablet (10 mg total) by mouth daily Active fluconazole (DIFLUCAN) 150 mg tablet Take 1 tablet (150 mg total) by mouth once a week 06/20/19 25 Active nystatin cream 06/27/19 25 Active acetaminophen- codeine (TYLENOL with CODEINE #3) 300-30 mg per tablet Take 1 tablet by mouth 2 (two) times a day as needed 06/15/19 25 Active busPIRone (BUSPAR) 5 mg tablet Take 1 tablet (5 mg total) by mouth 2 (two) times a day as needed 06/22/19 25 Active miconazole 2 % cream Apply topically 2 (two) times a day 01/31/20 23 Active Entresto 49-51 mg tablet Take 1 tablet by mouth 2 (two) times a day 06/18/19 25 Active tirzepatide, weight loss, (Zepbound) 2.5 mg/0.5 mL pen injectorIndica tions:obstruct danis sleep apnea syndrome,apnea /hypopnea index of 20 Inject 0.5 mL (2.5 mg total) under the skin every 7 days 2 mL 07/11/19 25 Active ergocalciferol (VITAMIN D) 50,000 unit capsule Take 1 capsule (50,000 Units total) by mouth once a week 06/27/19 25 Active gabapentin (NEURONTIN) 100 mg capsule Take 1 capsule (100 mg total) by mouth 2 (two) times a day 07/02/19 25 Active metFORMIN (GLUCOPHAGE) 500 mg tablet Take 1 tablet (500 mg total) by mouth 07/24/19 25 Active potassium chloride ER 20 mEq CR tablet TAKE 2 TABLETS BY MOUTH TWICE DAILY WITH FUROSEMIDE 07/13/19 25 Active sertraline (ZOLOFT) 25 mg tablet Take 1 tablet (25 mg total) by mouth daily 07/17/19 25 Active terbinafine (LamiSIL) 250 mg tablet Take 1 tablet (250 mg total) by mouth daily Active Zepbound 5 mg/0.5 mL pen injectorIndica tions:obstruct danis sleep apnea syndrome,apnea /hypopnea index of 20 INJECT 0.5 ML (5 MG TOTAL) UNDER THE SKIN EVERY 7 DAYS. START AFTER TAKING 2.5 MG WEEKLY FOR 4 WEEKS. 2 mL 1 10/18/19 25 Active tirzepatide, weight loss, (Zepbound) 5 mg/0.5 mL pen injectorIndica tions:obstruct danis sleep apnea syndrome,apnea /hypopnea index of 20 Inject 0.5 mL (5 mg total) under the skin every 7 days Start after taking 2.5 mg weekly for 4 weeks. 2 mL 2 07/11/19 25 025 Discontinued Active Problems Problem Noted Date Diagnosed Date [...] consulted. Obstructive sleep apnea 09/21/2020 Overview (05/28/2024): 2014 PSG -- Class III morbid obesity. Moderately [...] Encounters Date Type Department Care Team Description 10/29/2024 1:00 PM CDT Clinical Support [facility] Medicine Metabolic Weight Management [address] [place] [address] 10/29/2024 Telephone [facility] Metabolic Weight Management [address], [address] [place] [phone] Emily Johnson 09/24/2024 1:00 PM CDT Clinical Support [facility] Metabolic Weight Management [address], [address] [place] [phone] 09/23/2024 Telephone [facility] Metabolic Weight Management [address], [address] [place] [phone] Maryann Curiel, DORI Appointment 08/30/2024 1:00 PM CDT Clinical Support [facility] Metabolic Weight Management [address], [address] [place] [phone] from Last 3 Months Surgical History Surgery Date Site/Laterality Comments PERIPHERAL ARTERIAL STENT GRAFT Medical History Medical History Date Comments COPD (chronic obstructive pulmonary disease) Arthritis Hypertension High cholesterol Cardiovascular disease Peripheral [...] on file 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 She could not stand still on the scale, as she was barely able to stand Height 157.5 cm (5' 2.01) 10/29/2024 1 2:58 PM CDT Body Mass Index 59.61 10/29/2024 12:58 PM CDT Plan of Treatment Health Maintenance [...] Additional history exists Covid-19 Vaccine (2 - 2024-2 6 season) 2024 05/27/2020 Influenza Vaccine (#1) 2024 4, 11/28/2019, 11/28/2018, Additional history exists Depression Screening 11/02/2024 11/03/2023, 11/03/2023, 10/26/2023 Pneumococcal vaccine 65+ Completed 021, 11/28/2018, 01/09/2013 Zoster Vaccine Completed 12/14/2021, 09/29/2021 Procedures Procedure Name Priority Date/Time Associated Diagnosis Comments EGFR Routine 09/28/2020 6:45 AM CDT LIPID PANEL Routine 09/23/2020 3:35 AM CDT HEMOGLOBIN A1C Add-On 09/22/2020 3:53 AM CDT from Last 3 Months or Most Recently Relevant to Health Maintenance Results * eGFR (09/28/2020 6:45 AM CDT) eGFR 44 mL/min/1.7 3 m2 DEBBIE PUTNAM (MARCY) Comment: Interpretive Data Reference Interval Normal >/= [...] Fin al Result DEBBIE PUTNAM (MARCY) [address] [facility] [place] [address] * (ABNORMAL) Lipid panel (09/23/2020 3:35 AM CDT) Cholesterol 90 30 - 199 mg/dL DEBBIE PUTNAM (MARCY) Comment: Interpretive Data [...] 3:35 AM CDT 09/23/2020 4:29 AM CDT us Jaki Yousif MD LAB BLOOD ORDERABLES Fin al Result DEBBIE PUTNAM (MARCY) 1 [facility] Department of Laboratories [place], [place] [id number] * (ABNORMAL) Hemoglobin A1c (09/22/2020 3:53 AM [...] and children were not included. (Diabetes Care 31:3329-4981, 2008). The eAG is not equivalent to a fasting glucose. Blood specimen (specimen) 09/22/2020 3:53 AM CDT 09/22/2020 9:51 AM CDT us Jaki Yousif MD LAB BLOOD ORDERABLES Fin al Result DEBBIE PUTNAM (GALLOWAY) 1 [facility] Department [place] [address] from Last 3 Months or Most Recently Relevant to Health Maintenance Insurance [facility] MEDIC[facility] H[facility] OTHER Address: [address] [address] [place] [address] [employer] MEDICARE [facility] Address: [address] [address] [place] [address] [facility] MEDICARE Advance Directives For more information, please contact: [phone] * Full Code (Latest Code Status on File) Date Activated Date Inactivated Comments 09/21/2020 1:32 PM 09/28/2020 3:44 PM Care Teams Telecommunications Consultant Relationship Specialty Start Date End Date Lev Osullivan MD [address] [place] [address] PCP - General 07/21/20 Ninfa Covarrubias PA [address] [place] [address] Physician Auto Service Instructor Internal Medicine 07/21/17 Elizabeth Santos MD [address] [place] [address] Consulting Physician Sleep Medicine 09/23/20
--- OUTSIDE RECORDS SUMMARY | 2024-11-06 15:24 | XMS_ITS | Encounter Summary ---
Author Organization [facility] Address [address] [place] [address] Phone Care Team Providers Care Pulley Worker Name Role Phone Lev Osullivan MD Primary Care Provider [phone] Encounter Details Date Type Department Care Team (Late st Contact Info) Description 05/29/2024 Transcribe Orders [facility] Laboratory Services [address] [place] [address] Nancy Pro MD [address] [place] [address] Obstructive sleep apnea (adult) (pediatric) (Primary Dx); Atherosclerosis of [place] coronary artery, unspecified whether angina present, unspecified whether [place] or transplanted heart; Acute diastolic heart failure (HCC); Morbid obesity (HCC); BMI 70 and over, adult (HCC); Type 2 diabetes mellitus without complication, unspecified whether chcf insulin use Social History Tobacco Use Types Packs/Day Years Used Date Smoking Tobacco: Former Cigarettes 0.5 25 0 09/04/1994 - 09/05/2019 Smokeless Tobacco: Never Alcohol Use Standard Drinks/Week Comments Never 0 (1 standard drink = 0.6 oz pur e alcohol) a fifth every other day [facility] Utilities Answer Date Recorded In the past 12 months has [employer], gas, oil, or water company threatened to [...] often do you attend chur ch or moravian services? 1 to 4 times per year 03/30/2023 Do you belong to any clubs o r organizations such as confucianist groups, unions, fraternal or athletic groups, or [...] care, and heating? Not very hard 03/30/2023 [facility] - [...] place to sleep or slept in a senior living (including now)? No 03/30/2023 Housing Stability Vital Sign Answer Aj e Recorded In the last 12 months, was t here a time when you were not able to pay the mortgage or rent on time? No 05/01/2024 In the past 12 months, how m any times have you moved where you were living? 0 05/01/2024 At any time in the past 12 m [facility], were you homeless or living in a senior living (including now)? No 05/01/2024 Sexually Active Control [...] - 145 mmol/L 05/30/2024 9:43 AM CDT [facility] POTASSIUM 4.7 3.5 - 5.1 mmol/L 05/30/2024 9:43 AM CDT [facility] CHLORIDE 102 98 - 107 mmol/L 05/30/2024 9:43 AM CDT [facility] CO2, VENOUS 24 22 - 30 mmol/L 05/30/2024 9:43 AM CDT [facility] ANION GAP 14.7 <18.0 mmol/L 05/30/2024 9:43 AM T [facility] GLUCOSE 186(H) 70 - 99 mg/dL 05/30/2024 9:43 AM CDT [facility] BUN 12 10 - 20 mg/dL 05/30/2024 9:43 AM [facility] CREATININE, BLOOD 0.71 0.60 - 1.00 mg/dL 05/30/2024 9:43 AM CDT [facility] BUN/CREATININE RATIO 17 12 - 20 ratio 05/30/2024 9:43 AM [facility] TOTAL PROTEIN 7.7 6.0 - 8.0 g/dL 05/30/2024 9:43 AM T [facility] ALBUMIN 3.6 3.5 - 5.0 g/dL 05/30/2024 9:43 AM [facility] A/G RATIO 0.9(L) 1.0 - 2.2 05/30/2024 9:43 AM [facility] CALCIUM 9.1 8.7 - 10.5 mg/dL 05/30/2024 9:43 AM [facility] T BILI 0.7 0.2 - 1.2 mg/dL 05/30/2024 9:43 AM [facility] SGOT (AST) 72(H) <43 U/L 05/30/2024 9:43 AM T [facility] SGPT (ALT) 47 <56 U/L 05/30/2024 9:43 AM [facility] ALKALINE PHOSPHATASE 163(H) 40 - 150 U/L 05/30/2024 9:43 AM [facility] IS THE PATIENT REQUIRED TO BE FASTING? No 05/30/2024 9:43 AM [facility] GFR, ESTIMATED >60 >=60 05/30/2024 9:43 AM T [facility] Comment: Creatinine Clearance is the preferred criteria for selecting drug dose adjustments in renally impaired patients. The GFR is provided as additional pertinent clinical information. GFR is reported in mL/min/1.73 sq m. Calculation based on the Chronic Kidney Disease Epidemiology Collaboration (CKD- EPI) equation refit without adjustment for race. GFR, EST. >60 >=60 025 9:43 AM CDT [facility] GFR, EST. NONAFRICAN >60 >=60 05/30/2024 9:43 AM CDT [facility] Blood Venipuncture / Unknown 05/30/2024 9:01 AM CDT 05/30/2024 9:12 AM CDT Nancy Pro MD CHEMISTRY ORDERABLES Fin al Result Performing Organization Address City/[facility] Co de Phone Number [facility] [address] [place] [address] * (ABNORMAL) HEMOGLOBIN A1C W/ ESTIMATED GLUCOSE (05/30/2024 9:01 AM CDT) HGB-A1C 7.7(H) 4.0 - 6.0 % 05/30/2024 10:07 AM CDT [facility] Est Average Glucose 174.3 mg/dL 05/30/2024 10:07 AM CDT [facility] Blood Venipuncture / Unknown 05/30/2024 9:01 AM CDT 05/30/2024 9:12 AM CDT Narrative [facility] - 05/30/2024 10:07 AM CDT HEMOGLOBIN A1C: DIABETIC PATIENTS: WELL-CONTROLLED: 6.2 - 7.0 INTERMEDIATE WELL-CONTROLLED: 7.0 - 9.0 POORLY-CONTROLLED: >9.0 Specimens containing greater than 5% of Hemoglobin F may result in lower than expected % HbA1C results. Nancy Pro MD CHEMISTRY ORDERABLES Fin al Result Performing Organization Address City/[facility] Co de Phone Number [facility] [address] [place] [address] * VITAMIN D, 25 HYDROXY TOTAL (05/30/2024 9:01 AM CDT) VITAMIN D, 25 HYDROX 21.4 ng/mL 05/30/2024 9:59 AM CDT [facility] Blood Venipuncture / Unknown 05/30/2024 9:01 AM CDT 05/30/2024 9:12 AM CDT Narrative [facility] - 05/30/2024 9:59 AM CDT Published reference ranges for Vitamin D vary depending on time and place and method of testing, and on patient's age, sex, ethnicity and levels of other measured analytes such as parathormone, calcium and phosphorus. The result should be evaluated in conjunction with clinical findings and suspicions. [employer] and Endocrine Clinical Practice Guidelines: Status Vitamin D levels (ng/mL) Deficient <=20 At risk of inadequacy 21-29 Sufficient 30-100 Centers of Disease Control and Prevention Guidelines: Status Vitamin D levels (ng/mL) Deficient <13 At risk of inadequacy 13-19 Sufficient 20-50 Possibly harmful >50 References: [employer], 2010 Dietary reference intakes for calcium and vitamin D. [place]: The National Academies Press. Rosy M, Bobby N, Priya WALDEN, et al., Evaluation, treatment, and prevention of Vitamin D deficiency: an Endocrinology Clinical Practice Guideline. JCEM 2011 96: 7 6674-0180. [place] A, Braydon C, Kingston D, et al., Vitamin D Status: [place], 1493-0886, FLHS data brief, no. 59, MD [place]: National Center for Health Statistics. 2011. us Nancy Pro MD CHEMISTRY ORDERABLES Fin al Result [facility] [address] [place] [address] * THYROID STIMULATING HORMONE (TSH) (05/30/2024 9:01 AM CDT) TSH 3.342 0.300 - 5.000 mIU/L 05/30/2024 9:59 AM CDT [facility] Blood Venipuncture / Unknown 05/30/2024 9:01 AM CDT 05/30/2024 9:12 AM CDT us Nancy Pro MD CHEMISTRY ORDERABLES Fin al Result [facility] [address] [place] [address] documented in this encounter Visit Diagnoses Diagnosis Obstructive sleep apnea (adult) (pediatric)- Primary Atherosclerosis of [place] coronary artery, unspecified whether angina present, unspecified whether [place] or transplanted heart Acute diastolic heart failure (HCC) Acute diastolic heart failure Morbid obesity (HCC) Morbid obesity BMI 70 and over, adult (HCC) Body Mass Index 70 and over, adult Type 2 diabetes mellitus without complication, unspecified whether 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
--- OUTSIDE RECORDS SUMMARY | 2024-11-06 15:24 | XMS_ITS | Clinical Summary ---
Author Organization [facility] Address [address] [address] Phone Care Team Providers Care Gas Operations Superintendent Name Role Phone Lev Osullivan MD Primary Care Provider [phone] Allergies Active Allergy Reactions Criticality Noted Date [...] Encounters Date Type Department Care Team Description 09/30/2024 Transcribe Orders [facility] Scheduling [address] [facility] [place] [address] Lev Osullivan MD Other abnormal and inconclusive findings on diagnostic imaging of breast (Primary Dx) from Last 3 Months Immunizations Immunization Administration Dates Next Due Covid-19 Vaccine, Vector-nr, Rs-ad26, Pf, 0.5 Ml ([facility]) 05/27/2020 Influenza Vaccine greater than 3 yrs [...] e alcohol) a fifth every other day [facility] Utilities Answer Date Recorded In the past 12 months has e electric, gas, oil, or water company threatened to [...] often do you attend chur ch or baptism services? 1 to 4 times per year 03/30/2023 Do you belong to any clubs o r organizations such as presybeterian groups, unions, fraternal or athletic groups, or [...] care, and heating? Not very hard 03/30/2023 [facility] - [...] place to sleep or slept in a penitentiary (including now)? No 03/30/2023 Housing Stability Vital Sign Answer Aj e Recorded In the last 12 months, was t here a time when you were not able to pay the mortgage or rent on time? No 05/01/2024 In the past 12 months, how m any times have you moved where you were living? 0 05/01/2024 At any time in the past [address] [facility], were you homeless or living in a penitentiary (including now)? No 05/01/2024 Sexually Active Control [...] - Risk 60-74 years 1-dose series) 2013 Mammogram 10/09/2024 10/10/2023, 06/0 02/2020, 07/21/2020, Additional history exists Influenza Immunization (#1) 2024 10/2 05/2023, 02/21/2023, 01/04/2021, Additional history exists SARS-COV-2 Immunization ( season) 2024 05/27/2020 Pneumococcal Immunization (50+ years) Completed 01/04/2021, 11/28/2018, 11/28/2018, Additional history exists Pneumococcal Immunization Combined Discontinued 01/04/2021, 11/28/2018, 11/28/2018, Additional history exists Zoster Immunization Completed 12/14/2021, Hepatitis B Immunization Aged Out No longer [...] this topic Medical Devices Implanted Type [employer] Adviser Device Identifier Shelf Expiration Date Model / Serial / Lot Pkg Assy [id number] Smart Davi 80cm - [id number] Implanted:Qty: 1 on 04/17/2015 by Ron Moore MD at [facility] IMPLANT Right: Iliac [employer]NJ / CORD 11/19/2016 [id number] / / [id number] Stent Biliary Transhepatic Self-Expandin - [id number] Implanted:Qty: 1 on 04/17/2015 by Ron Moore MD at [facility] IMPLANT Left: Iliac [employer] / CORD 07/20/2016 [id number] / / [id number] Angioseal Vip 6fr - [id number] Implanted:Qty: 1 on 04/17/2015 by Ron Moore MD at [facility] IMPLANT Right: Groin ST ANITA / ATRIAL FIB 09/20/2015 [id number] / / [id number] Angioseal Vip 6fr - [id number] Implanted:Qty: 1 on 04/17/2015 by Ron Moore MD at [facility] IMPLANT Left: Groin ST ANITA / ATRIAL FIB 09/20/2015 [id number] / / [id number] Angioseal Vip 6fr - [id number] Implanted:Qty: 1 on 06/03/2015 [facility] IMPLANT Left: Groin ST ANITA / ATRIAL FIB 09/20/2015 [id number] / / [id number] Smart Control Implanted:Qty: 1 on 06/03/2015 by Ron Moore MD at [facility] Right: Leg CORDIS 11/19/2016 [id number] / NA / [id number] Procedures Procedure Name Priority Date/Time Associated Diagnosis [...] to exams dated: 07/21/2020, 09/17/2018, and 03/17/2014 [facility]. BREAST TISSUE:There are scattered fibroglandular densities [...] signed by: Kalee Pineda M.D. ll/:10/10/2023 12:28:35 [place] Head(s): RT Marisela(R)(M), [facility]; Cassie Padilla, [facility] letter sent: Birad 3 Followup Reading location: [facility] OVERALL STUDY BIRADS: 3 Probably benign Procedure [...] to exams dated: 07/21/2020, 09/17/2018, and 03/17/2014 [facility]. BREAST TISSUE:There are scattered fibroglandular densities [...] signed by: Kalee Pineda M.D. ll/:10/10/2023 12:28:35 [place] Head(s): Marilin Ricci RT(R)(M), [facility]; Cassie Padilla, [facility] letter sent: Leno 3 Followup Reading location: [facility] OVERALL STUDY BIRADS: 3 Probably benign us Lev Osullivan MD IMG MAMMO ORDERABLES Final Res ult from Last 3 Months or Most Recently Relevant to Health Maintenance Additional Health Concerns Infection Onset Date Last Indicated MRSA 10/13/2022 05/02/2024 [place] Advance [...] 1:40 PM 10/13/2022 8:29 AM Care Teams Gas Operations Superintendent Relationship Specialty Start Date End Date Lev Osullivan MD [address] [place] [address] PCP - General Family Medicine 07/12/19
--- NOTE | 2024-11-06 16:06 | ED_ITS ---
HPI - Skin/Abscess/Foreign Bdy General Chief complaint: Extremity Injury, Upper Stated complaint: left index finger Time Seen by Provider: 11/06/24 15:54 Source: patient and RN notes reviewed Mode of arrival: ambulatory Limitations: no limitations History of Present Illness HPI narrative: Patient presents today complaining of a swelling of and redness to the left 2nd finger. She had a small blister to the tip of her finger yesterday. It ruptured and she peeled the skin away. States that started bleeding and when she could not get it to stop she placed some paper tells on it and wrapped the tip of her finger in a ponytail nava for an extended period of time. When she and rapid after that period of time the entire tip of her finger was a large blister and was darkened in color. Related Data Home Medications ?Medication ?Instructions ?Recorded ?Confirmed ?Last Taken ?Type acetaminophen 300 mg-codeine 30 mg 1 tablet PO BID 10/05/23 Unknown History tablet atorvastatin 40 mg tablet 40 mg PO DAILY 10/05/2309/20 Unknown History buspirone 5 mg tablet 5 mg PO DAILY 10/05/2310/04 Unknown History cetirizine 10 mg tablet 10 mg PO DAILY 10/05/2309/20 Unknown History clopidogrel 75 mg tablet 75 mg PO DAILY 10/05/2309/20 Unknown History empagliflozin 10 mg tablet 10 mg PO DAILY 10/05/23 Unknown History (Jardiance) furosemide 80 mg tablet 80 mg PO DAILY 10/05/2309/20 Unknown History nystatin-triamcinolone 100,000 1 applic topical BID 10/05/23 Unknown History unit/g-0.1 % topical cream omeprazole 20 mg capsule,delayed 20 mg PO DAILY 10/05/23 Unknown History release sacubitril 49 mg-valsartan 51 mg 1 tablet PO BID 10/0410/05/23 Unknown History tablet (Entresto) albuterol sulfate 90 mcg/actuation inhalation 04/15/24 Unknown History aerosol inhaler (Ventolin HFA) fluoxetine 20 mg capsule mg 04/15/24 Unknown History gabapentin 100 mg capsule mg 04/15/24 Unknown History oxybutynin chloride 5 mg tablet mg 04/15/24 Unknown H istory sertraline 25 mg tablet mg 04/15/24 Unknown History albuterol sulfate 1.25 mg/3 mL mg 09/19/24 Unknown Hi story solution for nebulization cholecalciferol (vitamin D3) 1,250 09/19/24 Unknown History mcg (50,000 unit) capsule ergocalciferol (vitamin D2) 1,250 09/19/24 Unknown H istory mcg (50,000 unit) capsule fluconazole 150 mg tablet mg 09/19/24 Unknown History fluticasone propionate 230 inhalation 09/19/24 Unknow n History mcg-salmeterol 21 mcg/actuation HFA inhaler (Advair HFA) metformin 500 mg tablet mg 09/19/24 Unknown History tirzepatide (weight loss) 5 mg/0.5 mg subcut 09/19/24 Unknown History mL subcutaneous pen injector (Zepbound) terbinafine HCl 250 mg tablet mg 11/06/24 Unknown His tory trazodone 100 mg tablet mg 11/06/24 Unknown History Allergies Allergy/AdvReac Type Severity Reaction Status Date / Time No Known Allergies Allergy Verified 11/06/24 15:01 [facility] Past Medical History Medical History (Reviewed 11/06/24 @ 20:32 by Nancy Delgado, [facility], ) Diabetes High cholesterol Hypertension Social History Social History (Updated 11/06/24 @ 20:33 by Nancy Delgado, [facility], ) Smoking status: Former smoker Tobacco type: cigarettes Smoking end date: 11/07/19 Alcohol intake: former Alcohol use details: Quit in 2019 Comments At time of signature, I have reviewed and agree with nursing past medical, surgical, social and family history unless otherwise noted. Please see nursing chart for further information. There is no relevant family history pertinent to the presenting complaint Exam Narrative: GENERAL: Chronically ill-appearing, well-nourished, and in no acute distress. HEAD: Normocephalic, atraumatic. EYES: EOMI. No redness or drainage. Conjunctivae normal. ENT: Mucous membranes pink and moist. NECK: Normal AROM. CHEST: No respiratory distress. EXTREMITIES: Left 2nd finger: Most of DIP is a large blister that is nontender. At the tip, there is an approx 3mm round, flat, crusted lesion with some dried blood. Capillary refill normal. Distal sensation intact. SKIN: Warm, dry, no rash. Capillary refill normal. Normal skin turgor. NEURO: No focal deficits. Alert and oriented x3. Gait steady. PSYCH: Normal affect. No signs of depression or anxiety. Course Course Level of Care: Express Care Visit Vital Signs Vital signs: Vital Signs Temperature 96 F L 11/06/24 14:50 Pulse Rate 87 11/06/24 14:50 Respiratory Rate 16 11/06/24 14:50 Blood Pressure 110/46 L 11/06/24 14:50 Pulse Oximetry 97 11/06/24 14:50 Oxygen Delivery Room Air 11/06/24 14:50 Temperature 96 F L 11/06/24 14:50 Pulse Rate 87 11/06/24 14:50 Respiratory Rate 16 11/06/24 14:50 Blood Pressure 110/46 L 11/06/24 14:50 Pulse Oximetry 97 11/06/24 14:50 Oxygen Delivery Room Air 11/06/24 14:50 Reviewed MDM - Skin/Abscess/Foreign Bdy MDM Narrative Medical decision making narrative: 69-year-old chronically ill female patient presents today complaining swelling, redness to the tip of the left 2nd finger. She peeled the skin off a small blister last night and when it would not stop bleeding she applied a paper towel and elastic ponytail nava to keep it in place. Later, when it was removed, almost the entire DIP was darker in color and covered by a large blister. The fluid in the blister is clear. The dried area of the previous small blister was cleansed with chlorhexidine and dressed with triple antibiotic ointment and a Band-Aid. The large blister overlying the D IP with left alone. Patient was placed on a course of Keflex to prevent infection. Recommend PCP follow-up to ensure healing. Patient agrees with plan. Vital signs stable. ED precautions given. Differential Diagnosis Differential diagnosis: Likely abscess of skin or subcutaneous tissue and cellulitis Critical Care Time Critical Care Time Critical Care Time: No Discharge Plan Discharge Clinical Impression: Open wound of left index finger Patient Disposition: Home Condition: Stable Instructions: Antibiotic Form Additional Instructions: Please take the Keflex as prescribed. Wash the area daily with soap and water and keep covered. Follow-up with your PCP next week for recheck of your finger. Patient Language: Salvadorean Prescriptions: New cephalexin 500 mg capsule 500 mg PO Q6H 7 Days Qty: 28 0RF No Action terbinafine HCl 250 mg tablet trazodone 100 mg tablet buspirone 5 mg tablet 5 mg PO DAILY furosemide 80 mg tablet 80 mg PO DAILY Jardiance 10 mg tablet 10 mg PO DAILY Entresto 49-51 mg tablet 1 tablet PO BID acetaminophen-codeine 300-30 mg tablet 1 tablet PO BID nystatin-triamcinolone 100,000-0.1 unit/g-% cream 1 applic TOPICAL BID atorvastatin 40 mg tablet 40 mg PO DAILY cetirizine 10 mg tablet 10 mg PO DAILY omeprazole 20 mg capsule,delayed release(DR/EC) 20 mg PO DAILY clopidogrel 75 mg tablet 75 mg PO DAILY sertraline 25 mg tablet gabapentin 100 mg capsule albuterol sulfate [Ventolin HFA] 90 mcg/actuation HFA aerosol inhaler INHALATION oxybutynin chloride 5 mg tablet fluoxetine 20 mg capsule metformin 500 mg tablet fluconazole 150 mg tablet albuterol sulfate 1.25 mg/3 mL solution for nebulization ergocalciferol (vitamin D2) 1,250 mcg (50,000 unit) capsule fluticasone propion-salmeterol [Advair HFA] 230-21 mcg/actuation HFA aerosol inhaler INHALATION cholecalciferol (vitamin D3) 1,250 mcg (50,000 unit) capsule Zepbound 5 mg/0.5 mL pen injector SUBCUT Follow-up/Referrals: Abran,Lev Art MD [Primary Care Provider] Time of Disposition: 16:09
== END 2024-11-06 16:13 | disposition home or self-care (01) ==
PROVIDERS: Emergency Provider Nurse Practitioner; PCP Family Medicine
DX: S61.201A Unspecified open wound of left index finger without damage to nail, initial encounter (principal); X58.XXXA Exposure to other specified factors, initial encounter; E11.9 Type 2 diabetes mellitus without complications; Z79.84 Long term (current) use of oral hypoglycemic drugs; E78.00 Pure hypercholesterolemia, unspecified; I10 Essential (primary) hypertension; Z87.891 Personal history of nicotine dependence
CPT/HCPCS: 99213; G0463